=== PATIENT | male | born 1980 | race African-American/Black ===

== ENCOUNTER → 2020-09-27 14:18 | Outpatient (BNVA) | payer OTHER, SELFPAY | PROVIDERS: PCP Nurse Practitioner Primary Care; Referring Provider Family Medicine; Visit Provider Internal Medicine | DX: R07.2 Precordial pain (principal); I10 Essential (primary) hypertension; E66.01 Morbid (severe) obesity due to excess calories | CPT/HCPCS: 93005; 99202 ==

== ENCOUNTER → 2020-10-18 11:00 | Outpatient (REF) | payer OTHER, SELFPAY ==
--- NOTE | 2020-10-18 11:03 | CA_ITS ---
Acquisition Time: 2020-10-18 11:35:14 Total Exercise Time: 00:09:46 Test Indications: cp, sob Medications: SEE CHART Protocol: EARNEST Max HR: 153 BPM 84% of Pred: 182 BPM Max BP: 176/072 mmHG Max Work Load: 11.2 METS Exercise stress test with exercise 9 min 46 sec of Earnest protocol, without anginal symptoms, without arrythmia, with normotensive response to exercise, without EKG changes meeting criteria. Accuracy to assess for ischemia slightly decreased due to acheiving 84% MPHR when goal was 85%. Echo images obtained by tech at rest and immediately post peak exercise. Definity contrast used. Test reviewed with Dr Mahoney. Referred By: Brian Teran Overread By: HEENA DODD
== END ==
LOC: HO.CARD 11:00
PROVIDERS: PCP Family Medicine; Visit Provider Internal Medicine
DX: R07.2 Precordial pain (principal)
CPT/HCPCS: 93350; Q9957

== ENCOUNTER → 2020-11-21 13:41 | Outpatient (REF) | payer OTHER, SELFPAY ==
--- NOTE | 2020-11-21 13:46 | CA_ITS ---
Transthoracic Echocardiogram Patient (Last, First, Middle): Norbert Cerrato, Gender: Male Date of : 1980 Age: 39 Procedure Date: 11/21/2020 Procedure Type: Transthoracic Echocardiogram Location: OP Height: 177.8 cm Weight: 109.77 kg BSA: 2.26 m2 Heart Rate: bpm BP: 124 / 90 mmHg Helicopter Pilot: LEONCIO Referring MD: Brian Teran MD Symptoms: R07.2 - Precordial pain Study Quality: Fair/Contrast ECG Rhythm: Sinus Conclusions: - The left ventricular systolic function is normal. The calculated ejection fraction is 66% by biplane method. - No obvious valvular pathology seen on this study. Findings Procedure Information Contrast agent, definity, is being given per protocol without apparent complications. Left Ventricle Normal left ventricular cavity size. There is normal left ventricular wall thickness. The left ventricular systolic function is normal. The calculated ejection fraction is 66% by biplane method. There is no evidence of regional wall motion abnormalities. Diastolic function is normal for age. Right Ventricle Normal right ventricular cavity size and systolic function. Atria Both atria are normal in size. Aortic Valve There is a normal trileaflet aortic valve. There is no aortic valve stenosis. There is no aortic valve regurgitation. Mitral Valve The mitral valve appears normal. There is no mitral valve regurgitation. There is no mitral valve stenosis. Pulmonic Valve The pulmonic valve was not well visualized. Tricuspid Valve Normal tricuspid valve structure. There is trace tricuspid valve regurgitation. The pulmonary artery systolic pressure is normal. Great Vessels The aortic annulus, sinuses of valsalva, and asc aorta are normal in size. Venous The inferior vena cava is normal in size and collapses greater than 50% with inspiration. Pericardium/Pleural There is no evidence of pericardial effusion. Prior Study Comparison No prior study available for comparison. Recommendations, Care & Conclusions No obvious valvular pathology seen on this study. Measurements 2D Linear Measurements IVSd: 0.83 0.6-0.9/0.6-1.0 cm LVIDd: 5.10 3.9-5.3/4.2-5.9 cm LVIDd Index: 2.26 2.4-3.2/2.2-3.1 cm/m2 LVIDs: 3.33 2.0-3.6 cm LVPWd: 0.84 0.7-1.1 cm Ao Root: 3.40 2.1-3.5 cm LA Diam: 4.30 2.7-3.8/3.0-4.0 cm LAIDs Index: 1.90 1.5-2.3 cm/m2 LV Mass: 183.89 67-162/88-224 g LV Mass Index: 81.37 43-95/49-115 g/m2 LVOT Diam: 2.10 3.0+(-)1.3 cm 2D Systolic Function EF 4C: 64.90 >55% EF 2C: 67.30 >55% EF BiP: 65.80 >55% Mitral Valve MV Pk E: 1.21 MV PK A: 0.64 MV Decel Time: 203.00 E/A: 1.90 E'Lateral: 17.10 E'Medial: 11.70 E/E' Med: 10.30 E/E' Lat: 7.10 PHT: 59.00 MVA PHT: 3.73 Decel Boyle: 5.98 Aortic Valve AoV Pk Rolo: 1.68 AoV Mn Rolo: 1.17 AoV VTI: 0.36 AoV Pk Grad: 11.00 Aov Mn Grad: 6.00 VICKI Cont.VTI: 2.95 LVOT LVOT Pk Rolo: 1.56 LVOT Mn Rolo: 0.96 LVOT VTI: 0.31 LVOT Pk Grad: 10.00 LVOT Mn Grad: 4.00 LVOT Diam: 2.10 LVOT Area: 3.46 Diastolic Function MV Pk E: 1.21 MV Pk A: 0.64 E/A: 1.90 E'Medial: 11.70 E/E' Med: 10.30 E' Laterial: 17.10 E/E' Lat: 7.10 Tricuspid Valve TR Pk Rolo: 1.98 TR Pk Grad: 16.00 RA Press: 3.00 RVSP: 19.00 Great Vessels Aorta Ao Root-2D: 3.40 2.0-3.7 cm Ao Asc: 3.40 2.1-3.4 cm Ao Arch: 3.10 Updated in Other Vendor System with Status of Final Brian Teran MD electronically signed on 11/22/2020 10:51:04 AM with status of Final
== END ==
LOC: HO.CARD 13:41
PROVIDERS: Visit Provider Internal Medicine
DX: R07.2 Precordial pain (principal)
CPT/HCPCS: 93306; Q9957

== ENCOUNTER 2021-06-30 15:16 | Emergency (ER) | payer OTHER, SELFPAY ==
--- NOTE | ~2021-06-30 | CT_ITS ---
EXAMINATION: CT HEAD WITHOUT CONTRAST CLINICAL INFORMATION: Dizziness COMPARISON: None TECHNIQUE: Contiguous axial imaging was performed from the skull base to vertex without intravenous administration of contrast. This CT examination was performed using dose optimization techniques as appropriate, variously including the following: *Automated exposure control *Adjustment of mA and/or kV according to patient size (this includes techniques or standardized protocols for targeted exams where dose is matched to indication/reason for exam; i.e. extremities or head) *Use of iterative reconstruction technique DLP: 789 mGy-cm FINDINGS: There is no evidence of acute intracranial hemorrhage or territorial infarction. No abnormal mass effect or midline shift is seen. Yao to white matter differentiation is well preserved. No extra-axial fluid collections are identified. The ventricles are normal in size. There is no abnormal attenuation within the brain parenchyma. The osseous structures and soft tissues are normal. The mastoid air cells and visualized portions of the paranasal sinuses are well aerated. CT/CT head/brain wo con IMPRESSION: No acute intracranial process seen.
--- NOTE | ~2021-06-30 | XR_ITS ---
EXAMINATION: XR CHEST CLINICAL INFORMATION: Hemoptysis COMPARISON: None TECHNIQUE: 2 views of the chest were obtained. FINDINGS: No significant abnormality is noted involving the heart, lungs, mediastinum, bony thorax or soft tissues. XR/XR chest 2V IMPRESSION: Unremarkable examination.
[2021-06-30 15:35] VITALS: BP 122/69; PULSE 72; RESP 18; TEMP 37; O2SAT 99; BMI 33.0
--- NOTE | 2021-06-30 15:39 | ECG_ITS ---
Test Reason : DIZZINESS Blood Pressure : / mmHG Vent. Rate : 063 BPM Atrial Rate : 063 BPM P-R Int : 170 ms QRS Dur : 096 ms QT Int : 382 ms P-R-T Axes : 004 -11 011 degrees QTc Int : 390 ms Normal sinus rhythm with sinus arrhythmia Normal ECG When compared with ECG of 15-OCT-2017 11:59, No significant change was found Referred By: Generic ED Physician Electronically Signed By:MARCOS GILES MD
[2021-06-30 17:40] LABS: MANUAL DIFF FLAG NO
[2021-06-30 17:41] LABS: Basophils Percent Auto 0.7 % (0-2); Eosinophils Absolute Auto 0.1 X10*3/uL (0.0-0.4); Eosinophils Percent Auto 1.5 % (0-4); Hematocrit 42.2 % (42.0-52.0); Hemoglobin 14.1 g/dl (14.0-18.0); Imm Gran Abs Auto 0.02 X10*3/uL (0.00-0.03); Imm Gran Pct Auto 0.3 % (0.0-0.4); Lymphocytes Absolute Auto 2.4 X10*3/uL (1.2-4.9); Lymphocytes Percent Auto 40.5 % (20-40); Mean Corpuscular HGB Conc 33.4 g/dl (31.0-36.0); Mean Corpuscular Hemoglobin 29.8 pg (27.0-33.0); Mean Corpuscular Volume 89.2 fL (80.0-98.0); Mean Platelet Volume 11.1 fL (9.4-12.4); Monocytes Absolute Auto 0.4 X10*3/uL (0.1-1.2); Monocytes Percent Auto 6.9 % (2-11); Neutrophils Percent Auto 50.1 % (45-73); Platelet Count 241 X10*3/uL (160-400); Red Blood Count 4.73 X10*6/uL (4.60-5.80); Red Cell Distribution Width 13.2 % (11.0-16.0)
[2021-06-30 17:54] LABS: Anion Gap 10 (12-20); Blood Urea Nitrogen 19 mg/dL (9-16); Calcium 9.5 mg/dL (8.4-10.2); Carbon Dioxide 29 mmol/L (22-29); Chloride 102 mmol/L (96-108); Creatinine Clr Calc Pharmacy 101.6; Estimated Glomerular Filt Rate > 60; Glucose Random 95 mg/dL (60-115); Potassium 4.5 mmol/L (3.3-5.1); Sodium 136 mmol/L (135-145)
[2021-06-30 17:57] LABS: COVID-19 Test Negative (Negative)
--- NOTE | 2021-06-30 20:34 | ED.GENADULT ---
HPI - General Adult General Chief complaint: Dizziness Stated complaint: spitting up blood/dizziness/chest pains Time Seen by Provider: 06/30/21 20:34 Source: patient Mode of arrival: ambulatory Limitations: no limitations History of Present Illness complaint: noted bloody nose, had some blood in his spit today x 1, feels lightheaded Onset (ago): hour(s) (several hours ago) Location: head and face (nose and mouth) Severity: mild Relieving factors: none Exacerbating factors: none Associated symptoms: other (feels lightheaded, nasal congestion, has mild bloody nose, he is not coughing or vomiting up blood he just spit out some blood from his mouth all symptoms started outside at bus stop he lives in dorms and they are very dry) Related Data Home Medications Medication Instructions Recorded Confirmed cetirizine 10 mg tablet 10 mg PO DAILY PRN 09/27/20 09/27/20 hydrochlorothiazide 12.5 mg tablet 12.5 mg PO DAILY 09/27/20 09/27/20 hydroxyzine HCl 25 mg tablet 25 mg PO TID PRN 09/27/20 09/27/20 lisinopril 20 mg tablet 20 mg PO DAILY 09/27/20 09/27/20 naltrexone 50 mg tablet 50 mg PO DAILY 09/27/20 09/27/20 sertraline 100 mg tablet 100 mg PO DAILY 09/27/20 09/27/20 trazodone 50 mg tablet 50 mg PO BEDTIME PRN 09/27/20 09/27/20 Previous Rx's Medication Instructions Recorded fluticasone propionate 50 1 spray INTRANASAL DAILY PRN #16 g 06/30/21 mcg/actuation nasal spray,suspension Allergies Allergy/AdvReac Type Severity Reaction Status Date / Time No Known Allergies Allergy Verified 09/27/20 14:32 [No Known Allergies*] Review of Systems Review of Systems: Constitutional : No Fever, No Chills, No Fatigue ENT/Mouth : No sore throat, No Rhinorrhea, pos nasal congestion, pos resolved epistaxis Eyes: No Eye Pain, No Swelling, No Redness Cardiovascular : No Chest Pain, No SOB, No Dyspnea on Exertion Respiratory : pos Cough, No Sputum Gastrointestinal : No Nausea, No Vomiting, No Diarrhea, No abdominal Pain Genitourinary : No Dysuria, No Urinary Frequency, No Hematuria, Musculoskeletal : No joint pain, No Myalgias, No Joint Swelling Skin : No Skin Lesions, No rash Neuro : No Weakness, No Numbness, pos Dizziness, no Headache Psych : No Anxiety/Panic, No Depression Heme/Lymph: No Bruising, No Bleeding,No Lymphadenopathy Endocrine : No Polyuria, No Polydipsia All other systems reviewed and are negative [facility] Past Medical History Attestation statement: The following information was validated with the patient. Medical History Essential hypertension Morbid obesity Surgical History (Updated 09/27/20 @ 14:33 by MERLYN Moore) No pertinent past surgical history Family History Family History (Updated 09/27/20 @ 14:32 by MERLYN Moore) Father Heart disease Diabetes Paternal Aunt Heart disease Mother Family history of cancer HTN (hypertension) Social History Social History (Updated 06/30/21 @ 20:48 by Jo-Ann Campbell DO) Patient Tobacco Use Status: Never used Tobacco Advance Directives: No Physical Exam ED Vital Signs: Vital Signs - 24 hr 06/30/21 15:35 06/30/21 20:55 Temperature 98.6 F 97.6 F Pulse Rate 72 46 L Respiratory Rate 18 16 Blood Pressure 122/69 132/57 L Pulse Oximetry 99 97 BMI result Body Mass Index 33.0 Appearance: Alert. Oriented X3. No acute distress. Eyes: Pupils equal, round and reactive to light. ENT: Pharynx normal. Bilateral boggy turbinates no blood or lesions noted in nose or mouth Neck: Normal inspection. Neck supple. CVS: Normal heart rate and rhythm. Pulses normal. Respiratory: No respiratory distress. Breath sounds normal. Abdomen: Soft and non-tender. Skin: Skin warm and dry. Normal skin color. Normal skin turgor. Extremities: No lower extremity edema. No calf ttp Neuro: Oriented X 3. No motor deficit. No sensory deficit. Course Course Course Narrative: negative head CT stable for DC Medical Decision Making MDM Narrative Medical decision making narrative: 40 yo male with hx of HTN, allergies on zyrtec, lives in the dorms where it is dry he notes today at bus stop he had a brief resolved bloody nose and then had blood in his mouth as well which he spit out - he has not been coughing or vomiting. He takes no blood thinners and has not fallen or hit his head. Suspect epistaxis due to environment in dorms - will start on fluticasone PRN and obtain basic labs. I see no lesions in his mouth. He feels some dizziness as well will obtain imaging to r/o mass sinusitis Lab Data Result diagrams: 06/30/21 17:20 06/30/21 17:20 Labs: Lab Results 06/30/21 06/30/21 06/30/21 Range/Units 17:20 17:20 17:20 WBC 6.0 (4.8-10.8) X10*3/uL RBC 4.73 (4.60-5.80) X10*6/uL Hgb 14.1 (14.0-18.0) g/dl Hct 42.2 (42.0-52.0) % MCV 89.2 (80.0-98.0) fL MCH 29.8 (27.0-33.0) pg MCHC 33.4 (31.0-36.0) g/dl RDW 13.2 (11.0-16.0) % Plt Count 241 (160-400) X10*3/uL MPV 11.1 (9.4-12.4) fL Immature Gran % (Auto) 0.3 (0.0-0.4) % Neut % (Auto) 50.1 (45-73) % Lymph % (Auto) 40.5 H (20-40) % [place] % (Auto) 6.9 (2-11) % Eos % (Auto) 1.5 (0-4) % Baso % (Auto) 0.7 (0-2) % Lymph # (Auto) 2.4 (1.2-4.9) X10*3/uL [place] # (Auto) 0.4 (0.1-1.2) X10*3/uL Eos # (Auto) 0.1 (0.0-0.4) X10*3/uL Baso # (Auto) 0.0 (0.0-0.2) X10*3/uL Abs Immat Gran (auto) 0.02 (0.00-0.03) X10*3/uL Absolute Neuts (auto) 3.0 (2.0-8.3) x10*3/uL Absolute Nucleated RBC 0.000 (0.0-0.012) X10*3/uL Nucleated RBC % (auto) 0.0 (0.0-0.2) /100WBC Sodium 136 (135-145) mmol/L Potassium 4.5 (3.3-5.1) mmol/L Chloride 102 (96-108) mmol/L Carbon Dioxide 29 (22-29) mmol/L Anion Gap 10 L (12-20) BUN 19 H (9-16) mg/dL Creatinine 1.18 (0.5-1.4) mg/dL Estim Creat Clear Calc 101.6 Estimated GFR > 60 Random Glucose 95 (60-115) mg/dL Calcium 9.5 (8.4-10.2) mg/dL COVID-19 (ADRIANNA) Negative (Negative) COVID-19 Clin Com See Note ECG Data Attestation: I personally reviewed and interpreted this ECG as follows: Interpretation: Rate: 63 Rhythm: NSR Leonard: left Normal P waves. Normal SHANEKA. Normal QRS complex. ST T wave : normal no JEREMIAS qTC: normal prior studies: no acute ischemia The study has been interpreted contemporaneously by me. . Discharge Plan Discharge Clinical Impression: Epistaxis, Lightheadedness Patient Disposition: Home, Self-Care Instructions: Nosebleed (ED), Lightheadedness (ED) Additional Instructions: return to ED for any worsening symptoms or concerns please use a humidifier in your room There is no evidence of acute intracranial hemorrhage or territorial infarction. No abnormal mass effect or midline shift is seen. Yao to white matter differentiation is well preserved. No extra-axial fluid collections are identified. The ventricles are normal in size. There is no abnormal attenuation within the brain parenchyma. The osseous structures and soft tissues are normal. The mastoid air cells and visualized portions of the paranasal sinuses are well aerated. ? CT/CT head/brain wo con IMPRESSION: No acute intracranial process seen. Prescriptions: New fluticasone propionate 50 mcg/actuation spray,suspension 1 spray intranasal DAILY PRN (Reason: nasal congestion) Qty: 16 0RF Rx Instructions: administer into each nostril No Action sertraline 100 mg tablet 100 mg PO DAILY 0RF naltrexone 50 mg tablet 50 mg PO DAILY 0RF hydroxyzine HCl 25 mg tablet 25 mg PO TID PRN0RF cetirizine 10 mg tablet 10 mg PO DAILY PRN0RF lisinopril 20 mg tablet 20 mg PO DAILY 0RF hydrochlorothiazide 12.5 mg tablet 12.5 mg PO DAILY 0RF trazodone 50 mg tablet 50 mg PO BEDTIME PRN0RF
[2021-06-30 20:55] VITALS: BP 132/57; PULSE 46; RESP 16; TEMP 36.4; O2SAT 97
== END 2021-06-30 22:12 | disposition home or self-care (01) ==
PROVIDERS: Emergency Provider Emergency Medicine; PCP Internal Medicine Transplant Hepatology
DX: R04.0 Epistaxis (principal); R42 Dizziness and giddiness; I10 Essential (primary) hypertension; Z20.822 Contact with and (suspected) exposure to COVID-19
CPT/HCPCS: 36415; 70450; 71046; 80048; 85025; 87635; 93005; 99284

== ENCOUNTER 2022-05-02 14:46 | Outpatient (REF) | payer OTHER, SELFPAY ==
--- NOTE | ~2022-05-02 | XR_ITS ---
EXAMINATION: EXAMINATION ELBOW, RIGHT EXAMINATION WRIST, RIGHT CLINICAL INFORMATION: Right wrist pain. Right elbow pain. COMPARISON: None TECHNIQUE: 3 views of the right elbow. 4 views of the right wrist. FINDINGS: RIGHT ELBOW: Normal osseous mineralization. No evidence of acute fracture or dislocation. No elbow joint effusion. Small olecranon spur with small calcification at the insertion of the triceps tendon are noted. Tiny spurring from the coronoid process. Otherwise, no evidence of dystrophic soft tissue calcifications. RIGHT WRIST: No evidence of acute fracture or dislocation. No focal erosion. Essentially, no significant abnormality of the bones, joints or soft tissues is demonstrated. XR/XR elbow RT min 3V IMPRESSION: 1. No acute osseous abnormality in the right elbow and right wrist. 2. Small hypertrophic spurs at the olecranon process and coronoid process of the right ulna with findings suggestive of calcific tendinitis at the insertion of the triceps tendon. 3. Unremarkable right wrist radiographs.
--- NOTE | ~2022-05-02 | XR_ITS ---
EXAMINATION: EXAMINATION ELBOW, RIGHT EXAMINATION WRIST, RIGHT CLINICAL INFORMATION: Right wrist pain. Right elbow pain. COMPARISON: None TECHNIQUE: 3 views of the right elbow. 4 views of the right wrist. FINDINGS: RIGHT ELBOW: Normal osseous mineralization. No evidence of acute fracture or dislocation. No elbow joint effusion. Small olecranon spur with small calcification at the insertion of the triceps tendon are noted. Tiny spurring from the coronoid process. Otherwise, no evidence of dystrophic soft tissue calcifications. RIGHT WRIST: No evidence of acute fracture or dislocation. No focal erosion. Essentially, no significant abnormality of the bones, joints or soft tissues is demonstrated. XR/XR wrist RT min 3V IMPRESSION: 1. No acute osseous abnormality in the right elbow and right wrist. 2. Small hypertrophic spurs at the olecranon process and coronoid process of the right ulna with findings suggestive of calcific tendinitis at the insertion of the triceps tendon. 3. Unremarkable right wrist radiographs.
== END 2022-05-02 14:47 | disposition home or self-care (01) ==
LOC: HO.XRAY 14:46
PROVIDERS: PCP Family Medicine; Visit Provider Family Medicine
DX: M25.521 Pain in right elbow (principal); M25.531 Pain in right wrist
CPT/HCPCS: 73080; 73110

== ENCOUNTER → 2022-11-02 08:19 | Outpatient (BNVA) | payer OTHER, SELFPAY | PROVIDERS: PCP Family Medicine; Visit Provider Physician Assistant | DX: M77.8 Other enthesopathies, not elsewhere classified (principal); M65.4 Radial styloid tenosynovitis [de Quervain] | CPT/HCPCS: 99202 ==

== ENCOUNTER 2022-11-21 14:15 | Outpatient (REF) | payer OTHER, SELFPAY ==
[2022-11-23 20:53] LABS: TS Negative Control Passed; TS Panel A 0; TS Panel B 0; TS Positive Control Passed; TSpotTB Negative (Negative)
== END 2022-11-21 14:16 | disposition home or self-care (01) ==
LOC: HO.HHCL 14:15
PROVIDERS: Visit Provider Family Medicine
DX: Z00.00 Encounter for general adult medical examination without abnormal findings (principal)
CPT/HCPCS: 36415; 86481

== ENCOUNTER 2023-09-17 16:52 | Outpatient (REF) | payer MEDICAID, SELFPAY ==
[2023-09-17 19:18] LABS: Alanine Aminotransferase 31 U/L (0-40); Albumin Level 4.3 g/dL (3.5-5.0); Alkaline Phosphatase 107 U/L (39-117); Anion Gap 15 (12-20); Aspartate Amino Transferase 29 U/L (5-37); Bilirubin Total 0.5 mg/dL (0.0-1.0); Blood Urea Nitrogen 13 mg/dL (9-16); Calcium 9.9 mg/dL (8.4-10.2); Carbon Dioxide 26 mmol/L (22-29); Chloride 101 mmol/L (96-108); Cholesterol 200 mg/dL (<200); Estimated Glomerular Filt Rate > 60; Glucose Random 86 mg/dL (60-115); HDL Cholesterol 45 mg/dL (>40); LDL Cholesterol Calculated 138 mg/dL (<100); Potassium 3.5 mmol/L (3.3-5.1); Sodium 138 mmol/L (135-145); Total Protein 8.4 g/dL (6.5-8.0); Triglycerides 88 mg/dL (<150)
[2023-09-17 19:34] LABS: TSH reflex Free T4 1.43 uIU/mL (0.32-4.0)
[2023-09-17 19:44] LABS: Reflex LDLD? No
[2023-09-18 05:22] LABS: Estimated Average Glucose 123 mg/dL; Hemoglobin A1c % 5.9 % (<6.0)
== END 2023-09-17 16:53 | disposition home or self-care (01) ==
LOC: HO.HHCL 16:52
PROVIDERS: Visit Provider Family Medicine
DX: I10 Essential (primary) hypertension (principal); R63.5 Abnormal weight gain
CPT/HCPCS: 36415; 80053; 80061; 83036; 84443

== ENCOUNTER 2024-03-28 18:24 | Observation (INO) | payer OTHER, SELFPAY ==
--- NOTE | ~2024-03-28 | CT_ITS ---
EXAMINATION: Unenhanced CT the head; IV contrast enhanced CT angiography of the head and neck; delayed IV contrast-enhanced CT the head CLINICAL INFORMATION: Intermittent left arm and leg numbness. COMPARISON: CT head 06/30/2021 TECHNIQUE: Routine unenhanced CT the head with multiple coronal and sagittal reformatted images; IV contrast enhanced CT angiography of the head and neck with multiple 3-D reformatted angiographic thick section MIPS images processed on the technologist workstation under concurrent supervision; delayed IV contrast-enhanced CT the head. Vascular stenoses are made with reference to the NASCET criteria less otherwise specified. This CT examination was performed using dose optimization techniques as appropriate, variously including the following: *Automated exposure control *Adjustment of mA and/or kV according to patient size (this includes techniques or standardized protocols for targeted exams where dose is matched to indication/reason for exam; i.e. extremities or head) *Use of iterative reconstruction technique Intravenous Contrast: Omnipaque 350 70 mL DLP: 3132 mGy-cm FINDINGS: Unenhanced IV contrast enhanced CT of the head: No intracranial hemorrhage, tumors or acute infarcts identified. The ventricles and sulci are normal in size and configuration. No focal parenchymal lesions of the brain or abnormal extra-axial fluid collections identified. Normal appearance of the orbits and globes. No significant opacification of the visualized paranasal sinuses, mastoid air cells and middle ear cavities. No abnormal enhancement of the brain parenchyma. CT angiography neck: Images are markedly suboptimal secondary to delayed IV contrast bolus timing. Retropharyngeal course of the internal carotid arteries is noted bilaterally. The carotid bulbs are grossly patent. 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 The right vertebral artery is dominant. Vertebral arteries are suboptimally visualized secondary to suboptimal contrast timing bolus. No gross stenoses occlusions or contour abnormalities of the cervical carotid and vertebral artery systems are noted. CT angiography head: Images are markedly suboptimal secondary to delayed IV contrast timing. No gross large vessel intracranial occlusions identified. No intracranial stenoses or aneurysms noted. The basilar artery is patent. The M1 segments of the middle cerebral arteries are patent. The visualized lung apices are clear. No cervical lymphadenopathy. CT/CT angio head neck IMPRESSION: Unenhanced and IV contrast and CT of the head: *Normal. No intracranial abnormalities identified. CT angiography head and CT angiography neck: *Suboptimal CT angiographic examination secondary to suboptimal and delayed timing of intravenous contrast bolus. *Negative CT angiography of the head. No intracranial large vessel occlusions. *Negative CT angiography of the neck. No occlusions or evidence of arteriopathy. Incidental retropharyngeal course of the left and right internal carotid arteries. 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 Electronically signed by: Freeman Mott MD 03/28/2024 11:35 PM [facility]
--- NOTE | ~2024-03-28 | XR_ITS ---
EXAMINATION: XR CHEST CLINICAL INFORMATION: Shortness of breath COMPARISON: None available. TECHNIQUE: 2 views of the chest were obtained. FINDINGS: No significant abnormality is noted involving the heart, lungs, mediastinum, bony thorax or soft tissues. XR/XR chest 2V IMPRESSION: Unremarkable examination. Electronically signed by: Stew Butler DO 03/28/2024 09:04 PM [facility]
--- NOTE | 2024-03-28 19:05 | ED.GENADULT ---
HPI - General Adult General Chief complaint: General Medical Stated complaint: Congestion/HBP/pain left side body Time Seen by Provider: 03/28/24 21:48 Source: patient Mode of arrival: ambulatory Limitations: no limitations History of Present Illness ED Provider: Dr. Yissel Schmidt HPI narrative: Patient comes to emergency room with multiple complaints. Patient states that he has been having throbbing pain in the temporal region of his head on and off for months, intermittent nosebleeds, palpitations, near syncopal episodes. However, his most concern is that for several years, he has had intermittent numbness tingling on the cervical body, upper and lower extremity. This episode has been present for about 24 hours. Patient denies loss of motor function, only constant paresthesias on the left side of the upper/lower extremity. Patient states that he has never been diagnosed with TIAs or CVAs. Related Data Home Medications ?Medication ?Instructions ?Recorded ?Confirmed cetirizine 10 mg tablet 10 mg PO DAILY PRN 09/27/20 09/27/20 hydrochlorothiazide 12.5 mg tablet 12.5 mg PO DAILY 09/27/20 09/27/20 hydroxyzine HCl 25 mg tablet 25 mg PO TID PRN 09/27/20 09/27/20 lisinopril 20 mg tablet 20 mg PO DAILY 09/27/20 09/27/20 naltrexone 50 mg tablet 50 mg PO DAILY 09/27/20 09/27/20 sertraline 100 mg tablet 100 mg PO DAILY 09/27/20 09/27/20 Previous Rx's ?Medication ?Instructions ?Recorded fluticasone propionate 50 1 spray intranasal DAILY PRN nasal 06/30/21 mcg/actuation nasal congestion #16 grams spray,suspension Allergies Allergy/AdvReac Type Severity Reaction Status Date / Time No Known Allergies Allergy Verified 03/28/24 19:10 [No Known Allergies*] Review of Systems Review of Systems: Constitutional : No Weight loss, No Fever, No Chills, No Night Sweats, No Fatigue, No Malaise ENT/Mouth : No Hearing loss, No Ear Pain, No Nasal Congestion, No Sinus Pain, No Hoarseness, No sore throat, No Rhinorrhea, No Swallowing Difficulty Eyes: No Eye Pain, No Swelling, No Redness, No Foreign Body, No Discharge, No Vision Changes Cardiovascular : No Chest Pain, No SOB, No Dyspnea on Exertion, No Orthopnea, No Edema, complaining of Palpitations Respiratory : No Cough, No Sputum, No Wheezing, No Smoke Exposure, No Dyspnea Gastrointestinal : No Nausea, No Vomiting, No Diarrhea, No Constipation, No abdominal Pain, No Hematochezia, No Melena Genitourinary : no irregular bleeding, No Dysuria, No Urinary Frequency, No Hematuria, No Urinary Incontinence, No Urgency, No Flank Pain, No Urinary Flow Changes, No Hesitancy Musculoskeletal : No joint pain, No Myalgias, No Joint Swelling Skin : No Skin Lesions, No rash Neuro : No Weakness, No Numbness, complaining of paresthesias in left upper and lower extremity, this episode present for almost 30 hours. No Loss of Consciousness, No Dizziness, No Headache Psych : No Anxiety/Panic, No Depression, No SI/HI/AH/VH, No Social Issues, Heme/Lymph: No Bruising, No Bleeding,No Lymphadenopathy Endocrine : No Polyuria, No Polydipsia, No Temperature Intolerance [facility] Past Medical History Medical History Morbid obesity Essential hypertension Surgical History (Updated 09/27/20 @ 14:33 by MERLYN Moore) No pertinent past surgical history Family History Family History (Updated 09/27/20 @ 14:32 by MERLYN Moore) Father Heart disease Diabetes Paternal Aunt Heart disease Mother Family history of cancer HTN (hypertension) Social History Social History (Updated 11/02/22 @ 08:29 by Dania Sandoval) Alcohol intake: former Patient Tobacco Use Status: Former Tobacco user Advance Directives: No Advance Directives Information Provided: No Do you have a plan to hurt others: No Plan Current occupational status: unemployed Current occupation: right hand dominant Physical Exam ED Vital Signs: Vital Signs - 24 hr 03/28/24 19:09 03/28/24 21:37 03/29/24 00:24 Temperature 97.4 F 97.5 F 98.1 F Pulse Rate 66 87 67 Respiratory Rate 18 16 16 Blood Pressure 139/92 H 142/78 H 113/58 L Pulse Oximetry 98 97 96 Oxygen Delivery Method Room Air Room Air Room Air BMI result Body Mass Index 36.7 Const Other: Appearance: Alert. Oriented X3. No acute distress. Eyes: Pupils equal, round and reactive to light. ENT: Pharynx normal. Neck: Normal inspection. Neck supple. No lymph nodes noted. No crepitus CVS: Normal heart rate and rhythm. Pulses normal. Normal S1 and S2 Respiratory: No respiratory distress. Breath sounds normal. No Wheezing. No rales Abdomen: Soft and nontender. No rigidity. No distention. Skin: Skin warm and dry. Normal skin color. Normal skin turgor. Extremities: No lower extremity edema. No Lacerations. No Rash Neuro: Oriented X 3. No motor deficit. No sensory deficit. Moving all extremities. No slurred speech. CN 2 through 12 grossly intact Psych: calm, cooperative, normal affect NIH Stroke Scale Internal: Initial- Upon Arrival Level of Consciousness: Alert Level of Consciousness Questions: Answers both questions correctly Level of Consciousness Commands: Performs both tasks correctly Best Gaze: Normal Visual: No visual loss Facial Palsy: Normal Motor Arm (Right): No drift Motor Arm (Left): No drift Motor Leg (Right): No drift Motor Leg (Left): No drift Limb Ataxia: Absent Sensory: Normal Best Language: No aphasia Dysarthia: Normal Extinction and Inattention: No abnormality Score: 0 Course Course Course Narrative: This is an RME: Additional HPI, ROS, PE not included below will be deferred to primary provider. RME assessment and note performed by: Ashley Norris PA-C This is a [id number], with a hx of HTN and seasonal allergies, who presents to the ER with complaints of left sided headache and shortness of breath. Reports SOB worsens with exertion. He also reports he had an episode of epistaxis. He reports left-sided arm and leg heaviness, he states that this has been ongoing on and off for the last year, this episode starting since last night. No focal deficits on examination. He has an NIH score of 0. Plan: Labs, EKG, chest x-ray, further ER evaluation needed. Medications Administered Discontinued Medications Generic Name Dose Route Start Last Admin Trade Name Freq PRN Reason Stop Dose Admin Iohexol 65 ml 03/28/24 23:20 03/28/24 23:22 Iohexol 350 Mg/Ml 100 Ml Infus..Btl IV 03/28/24 23:21 65 ml ONCE ONE Administration Medical Decision Making Medical Decision Making [facility] Narrative: My interpretation of labs: Normal hematology and chemistry, no acute abnormalities -I discussed with the patient that given his symptoms of intermittent paresthesias in the left upper and lower extremities simultaneously, could be an indication of TIA. CT scan of the head and neck pending. At this time, patient is outside the window of treatment with TNK if this would be of CVA. -they bolus for the CTA of head and neck was not optimal. However, there is no obvious signs of vascular obstruction. Patient is still complaining of numbness and tingling in both left arm and leg. I discussed the patient with Dr. Pringle from the Medicine team, patient being admitted for further testing, MRI in the morning, rule out TIA/CVA Differential Diagnosis Differential Diagnoses: The differential diagnosis associated with the presentation includes (Neuropathy, radiculopathy, TIA, CVA) Admission/Observation Consideration of admission/observation: Escalation of care including admission/observation considered (Given patient's symptoms, observation/admission for further workup was considered.) Lab Data MDM Lab Attestation statement: I reviewed the patient's lab results. 03/28/24 19:28 03/28/24 19:28 Labs: Lab Results 03/28/24 Range/Units 19:28 WBC 7.2 (4.8-10.8) X10*3/uL RBC 4.81 (4.60-5.80) X10*6/uL Hgb 14.4 (14.0-18.0) g/dl Hct 41.6 L (42.0-52.0) % MCV 86.5 (80.0-98.0) fL MCH 29.9 (27.0-33.0) pg MCHC 34.6 (31.0-36.0) g/dl RDW 13.2 (11.0-16.0) % Plt Count 257 (160-400) X10*3/uL MPV 10.7 (9.4-12.4) fL Immature Gran % (Auto) 0.1 (0.0-0.4) % Neut % (Auto) 51.9 (45-73) % Lymph % (Auto) 39.6 (20-40) % Grady % (Auto) 6.1 (2-11) % Eos % (Auto) 1.7 (0-4) % Baso % (Auto) 0.6 (0-2) % Lymph # (Auto) 2.9 (1.2-4.9) X10*3/uL Grady # (Auto) 0.4 (0.1-1.2) X10*3/uL Eos # (Auto) 0.1 (0.0-0.4) X10*3/uL Baso # (Auto) 0.0 (0.0-0.2) X10*3/uL Abs Immat Gran (auto) 0.01 (0.00-0.03) X10*3/uL Absolute Neuts (auto) 3.7 (2.0-8.3) x10*3/uL Absolute Nucleated RBC 0.000 (0.0-0.012) X10*3/uL Nucleated RBC % (auto) 0.0 (0.0-0.2) /100WBC PT 11.8 (10.9-12.4) SEC INR 1.0 (0.9-1.1) Sodium 139 (135-145) mmol/L Potassium 4.0 (3.3-5.1) mmol/L Chloride 104 (96-108) mmol/L Carbon Dioxide 25 (22-29) mmol/L Anion Gap 14 (12-20) BUN 16 (9-16) mg/dL Creatinine 0.94 (0.5-1.4) mg/dL Estim Creat Clear Calc 130.6 Estimated GFR > 60 Random Glucose 93 (60-115) mg/dL Calcium 9.3 D (8.4-10.2) mg/dL Magnesium 2.1 (1.6-2.6) mg/dL Total Bilirubin 0.5 (0.0-1.0) mg/dL Direct Bilirubin 0.2 (0.0-0.5) mg/dL AST 49 H (5-37) U/L ALT 49 H (0-40) U/L Alkaline Phosphatase 90 (39-117) U/L Troponin I High Sens < 2.7 (<3.5-35.0) ng/L B-Natriuretic Peptide 25 (<100) pg/mL Total Protein 8.0 (6.5-8.0) g/dL Albumin 4.3 (3.5-5.0) g/dL Influenza Type A (PCR) NEGATIVE (Negative) Influenza Type B (PCR) NEGATIVE (Negative) RSV RNA Qual (PCR) NEGATIVE (Negative) SARS-CoV-2 RNA (RT-PCR) NEGATIVE (Negative) Independent Interpretation I performed an independent interpretation of an: CT Scan Radiology Impression Discussion of test interpretation with radiology: I have reviewed the radiologist's reading. Radiologist Impression: FINDINGS: Unenhanced IV contrast enhanced CT of the head: No intracranial hemorrhage, tumors or acute infarcts identified. The ventricles and sulci are normal in size and configuration. No focal parenchymal lesions of the brain or abnormal extra-axial fluid collections identified. Normal appearance of the orbits and globes. No significant opacification of the visualized paranasal sinuses, mastoid air cells and middle ear cavities. No abnormal enhancement of the brain parenchyma. CT angiography neck: Images are markedly suboptimal secondary to delayed IV contrast bolus timing. Retropharyngeal course of the internal carotid arteries is noted bilaterally. The carotid bulbs are grossly patent. 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 The right vertebral artery is dominant. Vertebral arteries are suboptimally visualized secondary to suboptimal contrast timing bolus. No gross stenoses occlusions or contour abnormalities of the cervical carotid and vertebral artery systems are noted. CT angiography head: Images are markedly suboptimal secondary to delayed IV contrast timing. No gross large vessel intracranial occlusions identified. No intracranial stenoses or aneurysms noted. The basilar artery is patent. The M1 segments of the middle cerebral arteries are patent. The visualized lung apices are clear. No cervical lymphadenopathy. CT/CT angio head neck IMPRESSION: Unenhanced and IV contrast and CT of the head: *Normal. No intracranial abnormalities identified. CT angiography head and CT angiography neck: *Suboptimal CT angiographic examination secondary to suboptimal and delayed timing of intravenous contrast bolus. *Negative CT angiography of the head. No intracranial large vessel occlusions. *Negative CT angiography of the neck. No occlusions or evidence of arteriopathy. Incidental retropharyngeal course of the left and right internal carotid arteries. 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 Critical Care Time Critical Care Time Critical Care Time: Yes Total Critical Care Time: 60 Attestation: I have personally provided critical care time. Time includes review of lab data, radiology results, discussion with consultants, and monitoring for potential decompensation. Intervention performed as documented. Discharge Plan Discharge Clinical Impression: Paresthesia of left arm and leg Patient Disposition: Admitted as Observation Prescriptions: No Action fluticasone propionate 50 mcg/actuation spray,suspension 1 spray intranasal DAILY PRN (Reason: nasal congestion) Qty: 16 0RF Rx Instructions: administer into each nostril sertraline 100 mg tablet 100 mg PO DAILY naltrexone 50 mg tablet 50 mg PO DAILY hydroxyzine HCl 25 mg tablet 25 mg PO TID PRN cetirizine 10 mg tablet 10 mg PO DAILY PRN lisinopril 20 mg tablet 20 mg PO DAILY hydrochlorothiazide 12.5 mg tablet 12.5 mg PO DAILY Print Language: Bengali
[2024-03-28 19:09] VITALS: BP 139/92; PULSE 66; RESP 18; TEMP 36.3; O2SAT 98; BMI 36.7
--- NOTE | 2024-03-28 19:11 | ECG_ITS ---
Test Reason : htn Blood Pressure : / mmHG Vent. Rate : 068 BPM Atrial Rate : 068 BPM P-R Int : 186 ms QRS Dur : 098 ms QT Int : 394 ms P-R-T Axes : 007 -22 004 degrees QTc Int : 418 ms Normal sinus rhythm Normal ECG When compared with ECG of 30-JUN-2021 17:23, No significant change was found Referred By: Ashley Norris Electronically Signed By:Richard Murillo
[2024-03-28 19:48] LABS: MANUAL DIFF FLAG NO
[2024-03-28 19:49] LABS: Basophils Percent Auto 0.6 % (0-2); Eosinophils Absolute Auto 0.1 X10*3/uL (0.0-0.4); Eosinophils Percent Auto 1.7 % (0-4); Hematocrit 41.6 % (42.0-52.0); Hemoglobin 14.4 g/dl (14.0-18.0); Imm Gran Abs Auto 0.01 X10*3/uL (0.00-0.03); Imm Gran Pct Auto 0.1 % (0.0-0.4); Lymphocytes Absolute Auto 2.9 X10*3/uL (1.2-4.9); Lymphocytes Percent Auto 39.6 % (20-40); Mean Corpuscular HGB Conc 34.6 g/dl (31.0-36.0); Mean Corpuscular Hemoglobin 29.9 pg (27.0-33.0); Mean Corpuscular Volume 86.5 fL (80.0-98.0); Mean Platelet Volume 10.7 fL (9.4-12.4); Monocytes Absolute Auto 0.4 X10*3/uL (0.1-1.2); Monocytes Percent Auto 6.1 % (2-11); Neutrophils Absolute Auto 3.7 x10*3/uL (2.0-8.3); Neutrophils Percent Auto 51.9 % (45-73); Platelet Count 257 X10*3/uL (160-400); Red Blood Count 4.81 X10*6/uL (4.60-5.80); Red Cell Distribution Width 13.2 % (11.0-16.0); White Blood Count 7.2 X10*3/uL (4.8-10.8)
[2024-03-28 19:55] LABS: Prothrombin Time 11.8 SEC (10.9-12.4)
[2024-03-28 20:06] LABS: Alanine Aminotransferase 49 U/L (0-40); Albumin Level 4.3 g/dL (3.5-5.0); Alkaline Phosphatase 90 U/L (39-117); Anion Gap 14 (12-20); Aspartate Amino Transferase 49 U/L (5-37); Bilirubin Direct 0.2 mg/dL (0.0-0.5); Bilirubin Total 0.5 mg/dL (0.0-1.0); Blood Urea Nitrogen 16 mg/dL (9-16); Calcium 9.3 mg/dL (8.4-10.2); Carbon Dioxide 25 mmol/L (22-29); Chloride 104 mmol/L (96-108); Creatinine Clr Calc Pharmacy 130.6; Estimated Glomerular Filt Rate > 60; Glucose Random 93 mg/dL (60-115); Magnesium 2.1 mg/dL (1.6-2.6); Sodium 139 mmol/L (135-145)
[2024-03-28 20:12] LABS: B Type Natriuretic Peptide 25 pg/mL (<100)
[2024-03-28 20:17] LABS: Troponin-I High Sensitivity < 2.7 ng/L (<3.5-35.0)
[2024-03-28 20:30] LABS: Influenza A PCR NEGATIVE (Negative); Influenza B PCR NEGATIVE (Negative); Resp Syncy Virus RNA Qual PCR NEGATIVE (Negative); SARS COV2 PCR INHOUSE NEGATIVE (Negative)
[2024-03-28 21:37] VITALS: BP 142/78; PULSE 87; RESP 16; TEMP 36.4; O2SAT 97
--- NOTE | 2024-03-28 21:38 | MHC.EDTECH ---
This pct just assumed care of Patient ,vitals taken ,no apparent distress noted .
[2024-03-28] MEDS: iohexoL 350 MG/ML 100 ML INFUS..BTL 65 ML IV (23:22)
--- NOTE | 2024-03-28 23:30 | PC.NURSE ---
Pt A&Ox3, denies any pain. No facial droop, equal hand braid folder, Pt ambulating independently with steady gait.
--- NOTE | 2024-03-29 00:23 | PM.IMHP ---
History of Present Illness Date of Service: 03/29/24 Attending physician on admission: Yann Hernandez Chief Complaint: Left-sided weakness/heaviness Pt is a 43-year-old male with a PMH significant for?HTN, seasonal allergies, and mood disorder who presents to the ED with?multiple complaints. Pt reports he awoke this morning with a throbbing and pulsating sensation in the left mormonism area above his ear. Describes it as more pounding rather than painful. Also experienced a ?heaviness? of left arm and left leg. Did not notice any weakness, ataxia, or difficulty grasping objects. Reports occasionally has difficulty swallowing, but no dysarthria, facial droop, or difficulty word finding. No headache or acute vision changes. States has been experiencing these episodes for approximately the last year, though they appear to be becoming more frequent and pronounced. Patient presents today as the throbbing in his head and the heaviness in his left side was more severe than normal. Currently patient is not experiencing these symptoms. Patient also complains of a sequence of symptoms where he suddenly becomes short of breath, dizzy, and feeling like he is going to pass out. Then soon after develops hiccups. Patient also reports occasional nosebleeds. No chest pain/pressure, palpitations. In the ED pt was hypertensive up to 142/78 otherwise vitals WNL and stable. Labs were significant for mildly elevated AST of 49 and ALT of 49, otherwise grossly unremarkable and baseline for patient. No leukocytosis. Stable H& H. No electrolyte abnormalities. Renal function WNL. Troponin negative. BNP negative. Tested negative for COVID, RSV, flu. CXR was unremarkable. CTA of head and neck was suboptimal due to delayed timing of IV contrast bolus, but showed no acute intracranial large vessel occlusion or evidence of occlusions or arteriopathy in the neck. CT of head negative for intracranial abnormalities. EKG demonstrated normal sinus rhythm without evidence of significant ST elevations or depressions. Pt will be admitted to the hospital under observation for for left-sided cranial discomfort and left-sided paresthesia concerning for TIA versus CVA. Review of Systems Review of Systems: Negative except for that which is stated in the HPI. [facility] Medical History Morbid obesity Essential hypertension Family History (Updated 09/27/20 @ 14:32 by MERLYN Moore) Father Heart disease Diabetes Paternal Aunt Heart disease Mother Family history of cancer HTN (hypertension) Surgical History (Updated 09/27/20 @ 14:33 by MERLYN Moore) No pertinent past surgical history Social History (Updated 11/02/22 @ 08:29 by Dania Sandoval) Alcohol intake: former Patient Tobacco Use Status: Former Tobacco user Advance Directives: No Advance Directives Information Provided: No Do you have a plan to hurt others: No Plan Current occupational status: unemployed Current occupation: right hand dominant Meds Allergies Allergy/AdvReac Type Severity Reaction Status Date / Time No Known Allergies Allergy Verified 03/28/24 19:10 [No Known Allergies*] Home Medications ?Medication ?Instructions ?Recorded ?Confirmed ?Last Taken ?Type cetirizine 10 mg tablet 10 mg PO DAILY PRN 09/27/20 09/27/20 Unknown History hydrochlorothiazide 12.5 mg tablet 12.5 mg PO DAILY 09/27/20 09/27/20 Unknown History hydroxyzine HCl 25 mg tablet 25 mg PO TID PRN 09/27/20 09/27/20 Unknown History lisinopril 20 mg tablet 20 mg PO DAILY 09/27/20 09/27/20 Unknown History naltrexone 50 mg tablet 50 mg PO DAILY 09/27/20 09/27/20 Unknown History sertraline 100 mg tablet 100 mg PO DAILY 09/27/20 09/27/20 Unknown History Physical Exam Vital Signs and Narrative: Vital Signs: Last Vital Signs Temp 97.5 F 03/28/24 21:37 Pulse 87 03/28/24 21:37 Resp 16 03/28/24 21:37 BP 142/78 H 03/28/24 21:37 Pulse Ox 97 03/28/24 21:37 O2 Del Method Room Air 03/28/24 21:37 BMI result Body Mass Index 36.7 General: AOx3, no acute distress Resp: CTA bilaterally CVS: S1, S2, RRR GI: +BS, NT, no distention Skin: Warm, dry Neuro: Cranial nerves II-XII grossly intact bilaterally. Motor grossly intact bilaterally. Strength intact and symmetrical of upper and lower extremities bilaterally. Sensation to light touch intact of upper and lower extremities bilaterally. No facial droop. No dysarthria. 0.8 or drift negative. Extremities: No edema Psych: Appropriate affect Results Labs 03/28/24 19:28 03/28/24 19:28 Labs: Laboratory Results - last 24 hr 03/28/24 19:28 MCV 86.5 MCH 29.9 MCHC 34.6 RDW 13.2 Plt Count 257 MPV 10.7 Immature Gran % (Auto) 0.1 Neut % (Auto) 51.9 Lymph % (Auto) 39.6 [place] % (Auto) 6.1 Eos % (Auto) 1.7 Baso % (Auto) 0.6 Lymph # (Auto) 2.9 [place] # (Auto) 0.4 Eos # (Auto) 0.1 Baso # (Auto) 0.0 Abs Immat Gran (auto) 0.01 Absolute Neuts (auto) 3.7 Absolute Nucleated RBC 0.000 Nucleated RBC % (auto) 0.0 PT 11.8 INR 1.0 Anion Gap 14 Estim Creat Clear Calc 130.6 Estimated GFR > 60 Random Glucose 93 Calcium 9.3 D Magnesium 2.1 Total Bilirubin 0.5 Direct Bilirubin 0.2 AST 49 H ALT 49 H Alkaline Phosphatase 90 Troponin I High Sens < 2.7 B-Natriuretic Peptide 25 Total Protein 8.0 Albumin 4.3 Influenza Type A (PCR) NEGATIVE Influenza Type B (PCR) NEGATIVE RSV RNA Qual (PCR) NEGATIVE SARS-CoV-2 RNA (RT-PCR) NEGATIVE Imaging Radiologist's Impressions: Impressions Chest X-Ray 03/28/24 19:30 IMPRESSION: Unremarkable examination. Electronically signed by: Stew Butler DO 03/28/2024 09:04 PM EST RP Head/Neck CTA 03/28/24 22:12 IMPRESSION: Unenhanced and IV contrast and CT of the head: *Normal. No intracranial abnormalities identified. CT angiography head and CT angiography neck: *Suboptimal CT angiographic examination secondary to suboptimal and delayed timing of intravenous contrast bolus. *Negative CT angiography of the head. No intracranial large vessel occlusions. *Negative CT angiography of the neck. No occlusions or evidence of arteriopathy. Incidental retropharyngeal course of the left and right internal carotid arteries. 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 Electronically signed by: Freeman Mott MD 03/28/2024 11:35 PM EST RP Assessment and Plan (1) Paresthesia of left arm and leg: Status: Acute Plan Pt is a 43-year-old male with a PMH significant for?HTN, seasonal allergies, and mood disorder who presents to the ED with?multiple complaints. Pt reports he awoke this morning with a throbbing and pulsating sensation in the left mormonism area above his ear. Describes it as more pounding rather than painful. Also experienced a ?heaviness? of left arm and left leg. Pt will be admitted to the hospital under observation for for left-sided cranial discomfort and left-sided paresthesia concerning for TIA versus CVA. Left-sided paresthesia Patient reports left-sided throbbing in temporal associated with left upper and lower extremity paresthesia Intermittent x1 year, worsening and becoming more frequent Today was most severe episode yet Currently back to baseline, no focal deficits noted upon exam Concerning for TIA versus CVA versus possible complex migraine CT of head negative for acute intracranial abnormality CTA of head/neck suboptimal, but without noted acute process Will get MRI of head/brain Lipid profile PT/OT consult Neurology consult Monitor on telemetry HTN Continue hydrochlorothiazide, lisinopril Mood disorder Continue sertraline Full Code Attending:?Dr. Pringle DVT Prophylaxis: Pt ambulatory, here for observation Patient will be admitted to the hospital under observation for treatment and further evaluation of left-sided paresthesias concerning for TIA versus CVA versus complex migraine. Patient will require cardiac monitoring, additional imaging with MRI, and specialist consultation with Neurology. Quality Stroke Does the patient have a stroke diagnosis?: No VTE Prior VTE?: No VTE Risk Level:: Medical - moderate - high VTE Device Contraindication: Treatment Not Indicated VTE Drug Contraindication: Treatment Not Indicated
[2024-03-29 00:24] VITALS: BP 113/58; PULSE 67; RESP 16; TEMP 36.7; O2SAT 96
--- NOTE | 2024-03-29 01:30 | PC.NURSE ---
Pt passed Nursing Swallow eval. PO fluids given and sandwich per request.
[2024-03-29 01:44] LABS: Cholesterol 253 mg/dL (<200); HDL Cholesterol 59 mg/dL (>40); LDL Cholesterol Calculated 177 mg/dL (<100); Triglycerides 86 mg/dL (<150)
[2024-03-29] MEDS: Aspirin Enteric Coated 81 MG TABLET.DR PO (01:45)
[2024-03-29 03:02] VITALS: BP 125/65; PULSE 69; RESP 14; TEMP 36.7; O2SAT 96
[2024-03-29 04:20] VITALS: BP 111/61; PULSE 66; RESP 20; TEMP 36.4; O2SAT 97
--- NOTE | 2024-03-29 04:23 | MHC.EDTECH ---
0400 rounding done ,vitals taken ,Patient asleep ,Patient at bedside .
[2024-03-29] MEDS: 0.9 % Sodium Chloride Flush 3 ML SYRINGE IVFLUSH (09:33)
--- NOTE | 2024-03-29 09:43 | PHA.MEDREC ---
Pharmacy Consult ? Medication Reconciliation Pharmacy has completed the medication reconciliation. Spoke to pt to confirm meds. Per patient, does not take hydroxyzine or flonase.
--- NOTE | 2024-03-29 10:05 | P.CNNE_ITS ---
History of Present Illness Data of Consult Service Date: 03/29/24 Primary Care Provider: Eneida Alonzo MD [facility] Reason for consult: Left-sided. 43 years old man who came to hospital with left-sided symptoms. He is having this kind of symptoms in episodic fashion for about a year. Typically, it would start with a pulsating feeling in left side of his head or forehead or oriental orthodox area and then in few minutes it would spread to involve his left arm and then left leg. This symptom would last for about 10 minutes and then he had head pressure lasting for many hours. Though he was having these episodes for about a year, this recent episode was little bit more severe any came to emergency room. Review of Systems 2 Review of Systems: No recent cold or flu-like illness or trauma PMFSH Past Medical History Medical History Morbid obesity Essential hypertension Family History Family History (Updated 09/27/20 @ 14:32 by MERLYN Moore) Father Heart disease Diabetes Paternal Aunt Heart disease Mother Family history of cancer HTN (hypertension) Surgical History Surgical History (Updated 09/27/20 @ 14:33 by MERLYN Moore) No pertinent past surgical history Social History Social History (Updated 11/02/22 @ 08:29 by Dania Sandoval) Alcohol intake: former Patient Tobacco Use Status: Former Tobacco user Smoked in Last 30 Days: No Use of substances other than those prescribed or required for medical reasons: No Advance Directives: No Advance Directives Information Provided: No Do you have a plan to hurt others: No Plan Nutrition Risks: No Nutritional Risk Current occupational status: unemployed Current occupation: right hand dominant Meds Allergies Allergy/AdvReac Type Severity Reaction Status Date / Time No Known Allergies Allergy Verified 03/28/24 19:10 [No Known Allergies*] Active Medications: Current Medications Acetaminophen (Acetaminophen 325 Mg Tablet) 650 mg PO Q6H PRN PRN Reason: Pain, Mild (Pain Scale 1-3), fever or headache Benzonatate (Benzonatate 100 Mg Capsule) 100 mg PO TID PRN PRN Reason: Cough Calcium Carbonate (Calcium Carbonate 750 Mg Tab.Chew) 750 mg PO Q4H PRN PRN Reason: Heartburn Magnesium Hydroxide (Milk Of Magnesia 30 Ml Oral.Susp) 30 ml PO DAILY PRN PRN Reason: Constipation Melatonin (Melatonin 3 Mg Tablet) 6 mg PO BEDTIME PRN PRN Reason: Insomnia Ondansetron HCl (Ondansetron Hcl 4 Mg/2 Ml Vial) 4 mg IVPUSH Q8H PRN PRN Reason: Nausea and Vomiting Sodium Chloride (0.9 % Sodium Chloride Flush 3 Ml Syringe) 3 ml IVFLUSH QSHIFT [facility] Last Admin: 03/29/24 09:33 Dose: 3 ml Home Medications ?Medication ?Instructions ?Recorded ?Confirmed ?Last Taken ?Type cetirizine 10 mg tablet 10 mg PO DAILY PRN Allergy Symptoms 09/27/20 03/29/24 Unknown History hydrochlorothiazide 12.5 mg tablet 12.5 mg PO DAILY 09/27/20 03/29/24 03/28/24 History lisinopril 20 mg tablet 20 mg PO DAILY 09/27/20 03/29/24 03/28/24 History sertraline 100 mg tablet 150 mg PO DAILY 03/29/24 03/29/24 03/28/24 History Physical Exam 2 Vital Signs: Vital Signs: Last Vital Signs Temp 97.5 F 03/29/24 04:20 Pulse 66 03/29/24 04:20 Resp 20 03/29/24 04:20 BP 111/61 03/29/24 04:20 Pulse Ox 97 03/29/24 04:20 O2 Del Method Room Air 03/29/24 04:20 BMI result Body Mass Index 36.7 Neuro: Other: He is alert and awake with normal spontaneity of speech fluency comprehension and affect. Face is symmetrical. Visual mandujano are full. There was no pronator drift. Deep tendon reflexes are trace to absent with flexor plantars. Speech is normal. Results Labs 03/28/24 19:28 03/28/24 19:28 Labs: Short CBC 03/28/24 Range/Units 19:28 WBC 7.2 (4.8-10.8) X10*3/uL Hgb 14.4 (14.0-18.0) g/dl Hct 41.6 L (42.0-52.0) % Plt Count 257 (160-400) X10*3/uL BMP 03/28/24 19:28 Sodium 139 Potassium 4.0 Chloride 104 Carbon Dioxide 25 BUN 16 Creatinine 0.94 Calcium 9.3 D Liver Function 03/28/24 Range/Units 19:28 Total Bilirubin 0.5 (0.0-1.0) mg/dL Direct Bilirubin 0.2 (0.0-0.5) mg/dL AST 49 H (5-37) U/L ALT 49 H (0-40) U/L Alkaline Phosphatase 90 (39-117) U/L Albumin 4.3 (3.5-5.0) g/dL CT and CTA of brain did not reveal any significant abnormality. CTA of neck was okay. Assessment and Plan (1) Migraine equivalent syndrome: Status: Acute 43 years old man who is description of symptom is suggestive more of migraine with aura and migraine equivalent syndrome resulting in left-sided symptoms lasting for few minutes followed by head pressure or headache for many hours. He has been having the symptoms were about a year and episodic fashion. He was educated about this concept and was advised to take a medicine to control of the symptoms. Topiramate 25 mg at night is recommended at this time with outpatient follow-up. 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
[2024-03-29 10:36] VITALS: BP 114/42; PULSE 57; RESP 12; TEMP 36.6; O2SAT 98
--- NOTE | 2024-03-29 10:51 | PM.DS ---
DS: Providers Provider Date of Service: 03/29/24 Date of admission: 03/29/24 01:20 Date of discharge: 03/29/24 Primary care physician: Eneida Alonzo MD Consults: 03/29/24 01:23 Consult to Neurology Routine Consulting Provider: 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 Pt reports he awoke this morning with a throbbing and pulsating sensation in the left zoroastrianism area above his ear. Describes it as more pounding rather than painful. Also experienced a ?heaviness? of left arm and left leg. Did not notice any weakness, ataxia, or difficulty grasping objects. Reports occasionally has difficulty swallowing, but no dysarthria, facial droop, or difficulty word finding. No headache or acute vision changes. States has been experiencing these episodes for approximately the last year, though they appear to be becoming more frequent and pronounced. Patient presents today as the throbbing in his head and the heaviness in his left side was more severe than normal. Currently patient is not experiencing these symptoms. Patient also complains of a sequence of symptoms where he suddenly becomes short of breath, dizzy, and feeling like he is going to pass out. Then soon after develops hiccups. Patient also reports occasional nosebleeds. No chest pain/pressure, palpitations. In the ED pt was hypertensive up to 142/78 otherwise vitals WNL and stable. Labs were significant for mildly elevated AST of 49 and ALT of 49, otherwise grossly unremarkable and baseline for patient. No leukocytosis. Stable H& H. No electrolyte abnormalities. Renal function WNL. Troponin negative. BNP negative. Tested negative for COVID, RSV, flu. CXR was unremarkable. CTA of head and neck was suboptimal due to delayed timing of IV contrast bolus, but showed no acute intracranial large vessel occlusion or evidence of occlusions or arteriopathy in the neck. CT of head negative for intracranial abnormalities. EKG demonstrated normal sinus rhythm without evidence of significant ST elevations or depressions. Pt will be admitted to the hospital under observation for for left-sided cranial discomfort and left-sided paresthesia concerning for TIA versus CVA. Hospital course: He was admitted for work up for stroke or TIA, all his symptoms resolved. He was evaluated by Neurologist (Dr. Snow) and thought his symptoms are related to migraine with Aura and was recommended for Topiramate 25 mg at bedtime and outpatient follow up. Time Attestation Discharge Coordination Time (in mins): 30 Quality: Safe Use of Opioids Does Pt have an Active Cancer Diagnosis on the Problem List?: No Quality: Stroke Does the patient have a stroke diagnosis?: No Physical Exam Vital Signs: Vital Signs: Last Vital Signs Temp 97.9 F 03/29/24 10:36 Pulse 57 03/29/24 10:36 Resp 12 03/29/24 10:36 BP 114/42 L 03/29/24 10:36 Pulse Ox 98 03/29/24 10:36 O2 Del Method Room Air 03/29/24 10:36 BMI result Body Mass Index 36.7 General: AO X 3, no acute distress Resp: CTA bilateral CVS: S1,S2,RRR GI: +BS, NT, no distention Skin: No rash Neuro: motor grossly intact Psych: appropriate affect DS: Data Data Completed and Pending Labs on day of discharge: Laboratory Results - last 24 hr 03/28/24 19:28 WBC 7.2 RBC 4.81 Hgb 14.4 Hct 41.6 L MCV 86.5 MCH 29.9 MCHC 34.6 RDW 13.2 Plt Count 257 MPV 10.7 Immature Gran % (Auto) 0.1 Neut % (Auto) 51.9 Lymph % (Auto) 39.6 [place] % (Auto) 6.1 Eos % (Auto) 1.7 Baso % (Auto) 0.6 Lymph # (Auto) 2.9 [place] # (Auto) 0.4 Eos # (Auto) 0.1 Baso # (Auto) 0.0 Abs Immat Gran (auto) 0.01 Absolute Neuts (auto) 3.7 Absolute Nucleated RBC 0.000 Nucleated RBC % (auto) 0.0 PT 11.8 INR 1.0 Sodium 139 Potassium 4.0 Chloride 104 Carbon Dioxide 25 Anion Gap 14 BUN 16 Creatinine 0.94 Estim Creat Clear Calc 130.6 Estimated GFR > 60 Random Glucose 93 Calcium 9.3 D Magnesium 2.1 Total Bilirubin 0.5 Direct Bilirubin 0.2 AST 49 H ALT 49 H Alkaline Phosphatase 90 Troponin I High Sens < 2.7 B-Natriuretic Peptide 25 Total Protein 8.0 Albumin 4.3 Triglycerides 86 Cholesterol 253 H LDL Cholesterol, Calc 177 H HDL Cholesterol 59 Influenza Type A (PCR) NEGATIVE Influenza Type B (PCR) NEGATIVE RSV RNA Qual (PCR) NEGATIVE SARS-CoV-2 RNA (RT-PCR) NEGATIVE Discharge Plan Discharge Anticipated Discharge Date/Time: 03/29/24 10:48 Patient Disposition: Home, Self-Care Discharge Diagnosis: Migranine with aura Referrals: Janina Snow MD [Physician] - 2 Weeks Eneida Alonzo MD [Primary Care Provider] - 1 Week Discharge Medications: New topiramate 25 mg capsule,extended release 24hr 25 mg PO BEDTIME Qty: 30 0RF Continued sertraline 100 mg tablet 150 mg PO DAILY cetirizine 10 mg tablet 10 mg PO DAILY PRN (Reason: Allergy Symptoms) lisinopril 20 mg tablet 20 mg PO DAILY hydrochlorothiazide 12.5 mg tablet 12.5 mg PO DAILY Discharge Orders: Discharge Order (Routine); Ordered 03/29/24 Ordered By: Jed Clemens Diet: Advance to usual diet Activity on Discharge: As tolerated Stand Alone Forms: Patient Portal Discharge page Print Language: [place] Care Plan Goals: recovery from migraine Health Concerns: migraine with aura Plan of Treatment: take topiramate 25 mg at bedtime and follow up with your Doctor in a week follow up with the Neurologist Dr. Snow in his office Assessment: see above
== END 2024-03-29 11:27 | disposition home or self-care (01) ==
LOC: HO.ED 03-29 00:58 → HO.EDOVER 03-29 01:27
PROVIDERS: Physician Assistant Medical; Admitting Provider Student in an Organized Health Care Education/Training Program; Emergency Provider Emergency Medicine; PCP Family Medicine; Visit Provider Internal Medicine
DX: G43.109 Migraine with aura, not intractable, without status migrainosus (principal); R20.2 Paresthesia of skin; R20.0 Anesthesia of skin; R29.700 NIHSS score 0; R06.02 Shortness of breath; R04.0 Epistaxis; I10 Essential (primary) hypertension; F39 Unspecified mood [affective] disorder; Z03.818 Encounter for observation for suspected exposure to other biological agents ruled out; Z79.899 Other long term (current) drug therapy
CPT/HCPCS: 0241U; 70496; 70498; 71046; 80048; 80061; 80076; 83735; 83880; 84484; 85025; 85610; 93005; 99222; 99284; 99285; Q9967

== ENCOUNTER → 2024-03-28 19:11 | Outpatient (BNV) | payer OTHER, SELFPAY | PROVIDERS: Admitting Provider Student in an Organized Health Care Education/Training Program; Emergency Provider Emergency Medicine; PCP Family Medicine; Visit Provider Internal Medicine Cardiovascular Disease | DX: I10 Essential (primary) hypertension (principal) | CPT/HCPCS: 93010 ==

== ENCOUNTER → 2024-03-29 01:20 | Outpatient (BNV) | payer OTHER, SELFPAY | PROVIDERS: Admitting Provider Student in an Organized Health Care Education/Training Program; Emergency Provider Emergency Medicine; PCP Family Medicine; Visit Provider Student in an Organized Health Care Education/Training Program | DX: R20.2 Paresthesia of skin (principal) | CPT/HCPCS: 99499 ==

== ENCOUNTER → 2024-03-29 01:20 | Outpatient (BNV) | payer OTHER, SELFPAY | PROVIDERS: Admitting Provider Student in an Organized Health Care Education/Training Program; Emergency Provider Emergency Medicine; PCP Family Medicine; Visit Provider Psychiatry & Neurology Neurology | DX: G43.109 Migraine with aura, not intractable, without status migrainosus (principal) | CPT/HCPCS: 99222 ==

== ENCOUNTER → 2024-06-12 10:30 | Outpatient (BNV) | payer OTHER, SELFPAY | PROVIDERS: PCP Family Medicine; Visit Provider Radiology Diagnostic Radiology | DX: R13.10 Dysphagia, unspecified (principal) | CPT/HCPCS: 74230 ==

== ENCOUNTER 2024-06-12 11:25 | Outpatient (REF) | payer OTHER, SELFPAY ==
--- NOTE | ~2024-06-12 | FL_ITS ---
EXAMINATION: Modified BARIUM SWALLOW CLINICAL INFORMATION: Oropharyngeal dysphagia COMPARISON: None available. TECHNIQUE: Modified barium swallow was performed in upright lateral view patient standing following oral administration of various consistencies of food coated with barium by the speech therapist. FINDINGS: On oral administration of various consistencies of food coated barium there is normal propagation bolus from the oral cavity, pharynx into upper esophagus without obstruction, narrowing or delay. No laryngeal penetration or aspiration seen. No retention of food in valleculae or piriform sinuses sinuses. FLUOROSCOPY TIME: 1.03 minutes DOSE AREA PRODUCT: 1267 uGy-m2 (microgray-meter squared) FL/FL Modified Barium Swallow IMPRESSION: Unremarkable modified barium swallow exam. Correlate with speech therapy report Electronically signed by: Maximo Peterson MD 06/12/2024 01:42 PM CHRISTEN
--- NOTE | 2024-06-12 14:09 | MHC.SL.IMP ---
Date of Plan of Treatment: 06/12/24 Onset of Symptoms/Illness: 06/12/23 Date Treatment Started: 06/12/24 Admitting Diagnosis: Dysphagia Primary Speech & Language Diagnosis: R13.11 Oral Phase Dysphagia Reason for Today's Visit: 68258 Modified Barium Swallow Study Pre-evaluation Dietary Consistencies: Regular Pre-evaluation Liquid Consistency: Thin Pre-evaluation Medication Administration: Whole with Liquid Medical History: Modified Barium Swallow Study Fluoroscopic Evaluation of Swallowing Function CPT Code 93197 Evaluation Year: 2024 Reason for Study: Difficulty swallowing Referring Physician: Sarkis Tsang MD Evaluating Clinician: Kylee Seay MA, CCC-BURRING WHEEL OPERATOR Study Number: 1 Patient Name: Norbert Cerrato Status: Outpatient, Ambulatory Age: 43 Gender: Male Medical History Medical History Morbid obesity Essential hypertension Current (pre-evaluation) Intake/Diet: Route: PO Diet Grade: Regular Liquid Consistencies: Thin Pre-Study Functional Oral Intake Scale (FOIS): 7- Total oral intake with no restrictions Pain: None reported at time of study SUBJECTIVE: Patient is a 43 year old male referred for a modified barium swallow study by Dr. Tsang from the [facility]. Patient reports onset of dysphagia approximately one year ago. He c/o pain in his chest and throat with swallowing. He also endorses globus sensation at the level of the sternal notch, especially with foods such as bread, rice, and meat. Patient reports persistent need to clear his throat, but denies any changes to his voice. Impressions and Recommendations OBJECTIVE: Time-out: performed at 12:15 Evaluation Start: 12:00; Stop: 12:10 Patient Positioning: Standing Viewing Planes: LATERAL ONLY Contrast: MBSImP? Standardized Protocol using commercially prepared, standardized Barium viscosities, including: Varibar? THIN LIQUID (40% w/v, <15 cps) , Varibar? NECTAR (40% w/v, <150-450 cps) , Varibar? PUDDING (40% w/v, <4451-4823 cps) , 1/2 Shortbread Cookie (1 x1 x.25 ) MBSImP ID: [id number] MBSImP Results: Lip closure for intraoral bolus containment could not be assessed due to logistical reasons not related to physiologic impairment. Tongue control during bolus hold allowed bolus escape posteriorly. Bolus preparation and mastication resulted in timely and efficient chewing and mashing. Bolus transport/lingual motion was with repetitive/disorganized motion of the tongue. Oral residue was a trace, lining oral structures. Initiation of the pharyngeal swallow occurred when the bolus head was in the pyriform sinuses. Soft palate elevation resulted in no bolus between the soft palate and the pharyngeal wall. Laryngeal elevation demonstrated complete superior movement of the thyroid cartilage with complete approximation of the arytenoids to the epiglottic petiole. Anterior hyoid excursion demonstrated complete anterior movement. Epiglottic movement resulted in complete inversion. Laryngeal vestibular closure was complete, as indicated by no air or contrast within the laryngeal vestibule at the height of the swallow. Pharyngeal stripping wave was present and complete. Pharyngeal contraction could not be determined due to logistical reasons not related to physiologic impairment. Pharyngoesophageal segment opening was completely distended for complete duration with no obstruction of bolus flow. Tongue base retraction allowed a trace column of contrast or air between the retracted tongue base and the posterior pharyngeal wall. Pharyngeal residue was not present. There was complete pharyngeal clearance. Esophageal clearance in the upright position could not be assessed due to logistical reasons not related to physiologic impairment. Oral Impairment Score: 8 (absence of score, component 1) Pharyngeal Impairment Score: 0 (absence of score, component 13) Esophageal Impairment Score: --- (absence of score, component 17) Laryngeal Penetration and Aspiration: Neither penetration nor aspiration was observed in today's study with Cookie, Pudding-thick, [place]-thick, Thin. ASSESSMENT: This exam was conducted by the radiologist and the speech pathologist. Patient was standing for lateral view only. He was able to feed himself without difficulty and trialed thin (via individual cup sips and sequential cup sips), nectar thick (via individual cup sips), puree, and regular solid consistencies. Some tongue rocking motion noted. There was premature posterior escape of trace liquid, which pooled in the pyriform sinuses prior to the initiation of the pharyngeal swallow trigger. Mastication was timely and efficient. There was trace residue on the tongue, cleared with secondary swallow. No evidence of nasopharyngeal reflux. Complete laryngeal elevation with complete epiglottic inversion and complete laryngeal vestibular closure. No evidence of penetration or aspiration. Complete vallecular and pyriform clearing. Liquid Intake Recommendation: Thin Liquid Intake Strategies: Unrestricted Dietary Recommendations: Regular Medication Administration: Whole with Liquid Please contact the pharmacy regarding appropriate crushable or liquid drug formulations that are available whenever modified delivery is recommended. Compensatory Strategies Recommended: Sitting Upright (90 deg), Small Bites and Sips, Alternate Liquids/Solids, Rate of Ingestion Change Supervision during eating and or drinking: None Needed Recommendation for Speech Therapy: NA:Typical Evaluation Text Comment: Intake Recommendations: Route: PO Diet Grade: Regular Liquid Consistencies: Thin Post-Study Functional Oral Intake Scale (FOIS): 7- Total oral intake with no restrictions Mild oral phase dysphagia with premature posterior escape, disorganized lingual motion, and delayed pharyngeal swallow trigger. Pharyngeal phase was unremarkable with good airway protection. No evidence of aspiration or penetration. Good oral and pharyngeal clearance. Suggested Referrals: The patient might benefit from a referral to: Gastroenterology Indication for Referral: ?Reflux; patient complaining of globus sensation, MBSS showing complete pharyngeal clearance Otolaryngology Indication for Referral: Chronic throat clearing Therapy Recommendations: Further speech therapy is not warranted at this time. Recommend continue unrestricted diet of REGULAR texture solids and THIN liquids, pills WHOLE in LIQUID. Patient is recommended G.I. consult to further investigate complaints of globus sensation and pain with swallowing. Clinician - Supplemental, Miscellaneous Communication: It is important to note MBSS objective studies are snapshots in time and Patient function might vary with factors such as time of day or concomitant medical conditions. For this reason, the final treatment plan for this patient should rest with their medical care team. Additional recommendations should be considered with the totality of the Patient in mind. Thank for the opportunity to participate in the care of this patient. If you have any questions about the content of this report, please contact the [facility] at [facility]. Education: Education regarding findings from today's study and plans for therapy were provided to Patient only through Verbal Instruction. Understanding was expressed by the Patient only. Filter Press Pumper Clinician/Clinical Fellow: No Supervisory Statement: N/A Speech Language Pathologist: Kylee Seay M.A., CCC-BURRING WHEEL OPERATOR
== END 2024-06-12 11:26 | disposition home or self-care (01) ==
LOC: HO.XRAY 11:25
PROVIDERS: PCP Family Medicine; Visit Provider Family Medicine
DX: R13.12 Dysphagia, oropharyngeal phase (principal)
CPT/HCPCS: 74230; 92611

== ENCOUNTER 2024-11-17 09:29 | Emergency (ER) | payer OTHER, SELFPAY ==
--- NOTE | ~2024-11-17 | XR_ITS ---
EXAMINATION: XR CHEST CLINICAL INFORMATION: cough, fever COMPARISON: March 28, 2024 TECHNIQUE: 2 views of the chest were obtained. FINDINGS: No significant abnormality is noted involving the heart, lungs, mediastinum, bony thorax or soft tissues. XR/XR chest 2V IMPRESSION: No acute disease, no change. Electronically signed by: Nikko Hernández MD 11/17/2024 10:54 AM EDT
[2024-11-17 09:53] VITALS: BP 114/76; PULSE 84; RESP 18; TEMP 37.3; O2SAT 100; BMI 33.7
[2024-11-17 10:17] LABS: MANUAL DIFF FLAG NO
[2024-11-17 10:18] LABS: Hematocrit 40.5 % (42.0-52.0); Hemoglobin 14.1 g/dl (14.0-18.0); Imm Gran Abs Auto 0.01 X10*3/uL (0.00-0.03); Imm Gran Pct Auto 0.2 % (0.0-0.4); Lymphocytes Absolute Auto 0.8 X10*3/uL (1.2-4.9); Mean Corpuscular HGB Conc 34.8 g/dl (31.0-36.0); Mean Corpuscular Hemoglobin 30.1 pg (27.0-33.0); Mean Corpuscular Volume 86.5 fL (80.0-98.0); NRBC Abs Auto 0.000 X10*3/uL (0.0-0.012); NRBC Pct Auto 0.0 /100WBC (0.0-0.2); Platelet Count 216 X10*3/uL (160-400); Red Blood Count 4.68 X10*6/uL (4.60-5.80); White Blood Count 4.6 X10*3/uL (4.8-10.8)
[2024-11-17 10:21] LABS: Appearance Urine Clear; Glucose Urine UA Negative (Negative); PH 6.0 (5.0-9.0); Specific Gravity - Urine 1.020 (1.005-1.025)
[2024-11-17 10:46] LABS: Alanine Aminotransferase 38 U/L (0-40); Albumin Level 4.3 g/dL (3.5-5.0); Anion Gap 10 (12-20); Aspartate Amino Transferase 39 U/L (5-37); Calcium 8.8 mg/dL (8.4-10.2); Carbon Dioxide 26 mmol/L (22-29); Chloride 103 mmol/L (96-108); Potassium 3.8 mmol/L (3.3-5.1); Sodium 135 mmol/L (135-145); Total Protein 7.5 g/dL (6.5-8.0)
[2024-11-17 10:48] LABS: Alkaline Phosphatase 93 U/L (39-117); Blood Urea Nitrogen 13 mg/dL (9-16); Creatinine Clr Calc Pharmacy 93.3; Estimated Glomerular Filt Rate > 60; Magnesium 1.9 mg/dL (1.6-2.6)
[2024-11-17 10:57] LABS: Resp Syncy Virus RNA Qual PCR NEGATIVE (Negative); SARS COV2 PCR INHOUSE NEGATIVE (Negative)
--- NOTE | 2024-11-17 13:02 | ED.GENADULT ---
HPI - General Adult General Chief complaint: Abdominal Pain Stated complaint: fever Time Seen by Provider: 11/17/24 12:29 Source: patient, RN notes reviewed and old records reviewed Mode of arrival: ambulatory Limitations: no limitations History of Present Illness ED Provider: Katlin NOVAK narrative: 43-year-old male past medical history significant for hypertension, obesity presents for evaluation of fever. Patient reports fevers for the last 3 days. He reports bilateral lower back aches and muscle aches. He reports fatigue, a fever as high as 101 at home Your he denies any cough, sore throat, shortness of breath, abdominal pain, nausea vomiting, diarrhea Denies any recent travel He denies the use of IV drugs Denies any sick contacts He works for [employer] and denies excessive time outdoors or in wooded areas Related Data Home Medications ?Medication ?Instructions ?Recorded ?Confirmed cetirizine 10 mg tablet 10 mg PO DAILY PRN Allergy Symptoms 09/27/20 03/29/24 hydrochlorothiazide 12.5 mg tablet 12.5 mg PO DAILY 09/27/20 03/29/24 lisinopril 20 mg tablet 20 mg PO DAILY 09/27/20 03/29/24 sertraline 100 mg tablet 150 mg PO DAILY 03/29/24 03/29/24 Previous Rx's ?Medication ?Instructions ?Recorded topiramate 25 mg capsule,extended 25 mg PO BEDTIME #30 caps 03/29/24 release 24 hr Allergies Allergy/AdvReac Type Severity Reaction Status Date / Time No Known Allergies (No Known Allergy Verified 11/17/24 09:55 Allergies*) Review of Systems Constitutional: Constitutional: Reports body ache(s), Reports chills, Reports excessive sweating, Reports fatigue, Reports fever(s), Reports malaise and Reports weakness Eyes: Eyes: Denies blurry vision and Denies exophthalmos ENT: Denies sore throat Cardiovascular: Cardiovascular: Denies chest pain and Denies dyspnea on exertion Respiratory: Respiratory: Denies cough and Denies dyspnea on exertion Gastrointestinal: Gastrointestinal: Denies abdominal pain, Denies nausea and Denies vomiting Genitourinary: Genitourinary: Denies dysuria, Reports flank pain and Denies penile discharge Musculoskeletal: Musculoskeletal: Denies back pain, Reports myalgias, Denies arthralgias, Denies joint swelling, Denies limited range of motion and Reports stiffness Integumentary/Breasts: Skin/Breast: Denies erythema, Denies rash and Denies wounds Neurologic: Reports weakness Psychiatric: Psychiatric: Denies anxiety Endocrine: Endocrine: Reports excessive sweating and Reports fatigue PMFSH Past Medical History Medical History Morbid obesity Essential hypertension Surgical History (Updated 09/27/20 @ 14:33 by MERLYN Moore) No pertinent past surgical history Family History Family History (Updated 09/27/20 @ 14:32 by MERLYN Moore) Father Heart disease Diabetes Paternal Aunt Heart disease Mother Family history of cancer HTN (hypertension) Social History Social History (Updated 11/02/22 @ 08:29 by Dania Sandoval) Alcohol intake: former Patient Tobacco Use Status: Former Tobacco user Advance Directives: No Advance Directives Information Provided: Yes Do you have a plan to hurt others: No Plan Current occupational status: unemployed Current occupation: right hand dominant Physical Exam ED Vital Signs: Vital Signs - 24 hr 11/17/24 09:53 Temperature 99.2 F Pulse Rate 84 Respiratory Rate 18 Blood Pressure 114/76 Pulse Oximetry 100 Oxygen Delivery Method Room Air BMI result Body Mass Index 33.7 Const General: healthy appearing, comfortable, no acute distress, alert and awake Nutritional Appearance: well nourished Orientation/consciousness: patient oriented x3 HENMT Head: Yes normocephalic and Yes atraumatic Throat: Yes posterior oropharynx normal Eyes Eyelids: Yes eyelids normal Conjunctivae: conjunctivae normal Sclerae: sclerae normal Corneas: corneas normal Pupils: Equal, round and reactive pupils present EOM: EOMs intact bilaterally Neck Neck: Yes full ROM Resp Effort & Inspection: normal respiratory effort, able to speak in complete sentences, no audible wheezes and not labored Auscultation: clear to auscultation bilaterally Cardio Rate: regular rate Rhythm: regular rhythm GI Inspection: No distended Palpation (GI): Soft to palpation, not firm, nontender, no guarding and not rigid Auscultation: normoactive bowel sounds Skin General skin exam: no rashes or lesions noted and elasticity normal Neuro General: patient oriented x3 Cranial nerves: Yes CN's II-XII intact bilaterally, Yes Equal, round and reactive pupils present and Yes Bilaterally intact EOM present Cognition (Neuro): normal cognition Extrem Other: Moving all extremities well without any obvious deformities Medical Decision Making Medical Decision Making [facility] Narrative: 43-year-old male with a history of hypertension and obesity presents for evaluation of fever. His temp in the ER is 99.2 but he reports a T-max at home as high as 101.2. He has very vague symptoms are consistent with a fever including body aches, weakness, fatigue. He denies any respiratory symptoms, GI or symptoms. He has no rashes, no recent tick bites. No headache or neck pain to suggest meningeal cause. In the ER he is currently afebrile, he has a very mild leukopenia to 4.6 which could be related to a viral illness. He was negative for influenza, COVID-19 and RSV. He had a chest x-ray that was negative, urinalysis that was negative. No abdominal pain or tenderness on exam. He has no rashes noted. I will add on blood cultures, mono screen and tick-borne illness testing. The patient will be discharged as he is currently afebrile and well-appearing. I encouraged him to return if his symptoms do not resolve within 3-5 days Differential Diagnosis Differential Diagnoses: The differential diagnosis associated with the presentation includes Fevers Fever on on origin Lyme disease Viral syndrome COVID-19 Influenza Lab Data [facility] Lab Attestation statement: I reviewed the patient's lab results. As above 11/17/24 10:12 11/17/24 10:12 Labs: Lab Results 11/17/24 11/17/24 Range/Units 10:11 10:12 WBC 4.6 L (4.8-10.8) X10*3/uL RBC 4.68 (4.60-5.80) X10*6/uL Hgb 14.1 (14.0-18.0) g/dl Hct 40.5 L (42.0-52.0) % MCV 86.5 (80.0-98.0) fL MCH 30.1 (27.0-33.0) pg MCHC 34.8 (31.0-36.0) g/dl RDW 13.2 (11.0-16.0) % Plt Count 216 (160-400) X10*3/uL MPV 10.3 (9.4-12.4) fL Immature Gran % (Auto) 0.2 (0.0-0.4) % Neut % (Auto) 69.2 (45-73) % Lymph % (Auto) 17.6 L (20-40) % [place] % (Auto) 9.7 (2-11) % Eos % (Auto) 3.1 (0-4) % Baso % (Auto) 0.2 (0-2) % Lymph # (Auto) 0.8 L (1.2-4.9) X10*3/uL [place] # (Auto) 0.4 (0.1-1.2) X10*3/uL Eos # (Auto) 0.1 (0.0-0.4) X10*3/uL Baso # (Auto) 0.0 (0.0-0.2) X10*3/uL Abs Immat Gran (auto) 0.01 (0.00-0.03) X10*3/uL Absolute Neuts (auto) 3.2 (2.0-8.3) x10*3/uL Absolute Nucleated RBC 0.000 (0.0-0.012) X10*3/uL Nucleated RBC % (auto) 0.0 (0.0-0.2) /100WBC Sodium 135 (135-145) mmol/L Potassium 3.8 (3.3-5.1) mmol/L Chloride 103 (96-108) mmol/L Carbon Dioxide 26 (22-29) mmol/L Anion Gap 10 L (12-20) BUN 13 (9-16) mg/dL Creatinine 1.26 (0.5-1.4) mg/dL Estim Creat Clear Calc 93.3 Estimated GFR > 60 Random Glucose 105 (60-115) mg/dL Calcium 8.8 (8.4-10.2) mg/dL Magnesium 1.9 (1.6-2.6) mg/dL Total Bilirubin 0.6 (0.0-1.0) mg/dL Direct Bilirubin 0.2 (0.0-0.5) mg/dL AST 39 H (5-37) U/L ALT 38 (0-40) U/L Alkaline Phosphatase 93 (39-117) U/L Total Creatine Kinase 136 (38-174) U/L Total Protein 7.5 (6.5-8.0) g/dL Albumin 4.3 (3.5-5.0) g/dL Urine Color Yellow Urine Appearance Clear Urine pH 6.0 (5.0-9.0) Ur Specific [place] 1.020 (1.005-1.025) Urine Protein Negative (Neg-Trace) mg/dL Urine Glucose (UA) Negative (Negative) mg/dL Urine Ketones Negative (Negative) mg/dL Urine Blood Negative (Negative) Urine Nitrite Negative (Negative) Ur Leukocyte Esterase Negative (Negative) Influenza Type A (PCR) NEGATIVE (Negative) Influenza Type B (PCR) NEGATIVE (Negative) RSV RNA Qual (PCR) NEGATIVE (Negative) SARS-CoV-2 RNA (RT-PCR) NEGATIVE (Negative) Discharge Plan Discharge Clinical Impression: Fever Patient Disposition: Home, Self-Care Instructions: Fever in Adults (ED) Additional Instructions: All of your testing in the emergency department was reassuring. Your symptoms are most likely related to a virus. I added on blood cultures, tick-borne illnesses including Lyme and a mono spot Take Tylenol every 6 hours as needed for fevers and body aches. Hydrate well We will call you if any of the additional testing results positive. I recommend he return to the ER in 3-5 days if your symptoms have not resolved or if there are worsening Prescriptions: No Action sertraline 100 mg tablet 150 mg PO DAILY topiramate 25 mg capsule,extended release 24hr 25 mg PO BEDTIME Qty: 30 0RF cetirizine 10 mg tablet 10 mg PO DAILY PRN (Reason: Allergy Symptoms) lisinopril 20 mg tablet 20 mg PO DAILY hydrochlorothiazide 12.5 mg tablet 12.5 mg PO DAILY Stand Alone Forms: Work/School Release Print Language: Citizen Of [place]
--- OUTSIDE RECORDS SUMMARY | 2024-11-17 13:25 | XMS_ITS | Encounter Summary ---
Author Organization [employer] Address [address] [place] [address] 7[address] [place] [address] Care Team Providers Care Binder Cutter Hand Name Role Phone Eneida Alonzo MD Primary Care Provider [phone] Reason for Referral * Imaging (Routine) - Closed Specialty Diagnoses / Procedures Referred By Contigor t Referred To Contact Diagnoses Sleep disturbance Witnessed episode of apnea Procedures Polysomnography Eneida Alonzo MD [address] [place] [address] Phone: tel: fax: Sleep Medicine Service [facility] [address], [address] [place] [address] Phone: tel: fax: Referral ID Status Reason Start Date Expiration Date Visits Re quested Visits Authorized [id number] Closed 11/12/2023 11/11/2024 1 1 Encounter Details Date Type Department Care Team (Late st Contact Info) Description 11/12/2023 Orders Only [facility] MEDICINE [address] [place] [address] [phone] Eneida Alonzo MD [address] [place], [place] [phone] Sleep disturbance (Primary Dx); Witnessed episode of apnea Social History Tobacco Use Types Packs/Day Years Used Date Smoking Tobacco: Never Passive Smoke Exposure: Never Smokeless Tobacco: Never Housing Stability Answer Date Recorded What is your housing situation today? I have casper don 09/17/[address] you li ve. Do you have problems with any of the following? None of the above 09/17/2023 Food Insecurity Answer Date Recorded Within the past 12 months, y ou worried that your food would run out before you got money to buy more: Never True 09/17/2023 Within the past 12 months,th e food you bought just didn't last and you didn't have enough money to get more: Never True 11/2023 Transportation Answer Date Recorded In the past 12 months, has l ack of transportation kept you from medical appts, meetings, work or from getting things needed for daily living? No 09/17/2023 Utilities Answer Date Recorded In the past 12 months, has t he electric, gas, oil or water company threatened to shut off services in your home? No 09/17/2023 Depression Answer Date Recorded Patient Health Questionnaire-2 Score 0 09/17/2023 Sex and Gender Information Value Date Recorded Sex Assigned at Male 03/12/2022 10:32 AM EDT Legal Sex Male 10:32 AM EDT Gender Identity Male 03/12/2022 10:32 AM EDT Sexual Orientation Straight 03/12/2022 10 :32 AM EDT documented as of this encounter Plan of Treatment Scheduled Orders Name Type Priority Associated Diagnoses Orde r Schedule Polysomnography Sleep Center Routine Sleep disturbance Witnessed episode of apnea Expected: 11/12/2023 (Approximate), Expires: 11/11/2024 documented as of this encounter Procedures Procedure Name Priority Date/Time Associated Diagnosis Comments HIGH SENSITIVITY TROPONIN I Routine 03/28/2024 7:28 PM EST Sleep disturbance SARS COV2/INFLUENZA A/B AND RSV RNA QL NAAT Routine 03/28/2024 7:28 PM EST Sleep disturbance CBC WITH AUTO DIFFERENTIAL Routine 03/28/2024 7:28 PM EST Sleep disturbance PROTHROMBIN TIME-INR Routine 03/28/2024 7:28 PM EST Sleep disturbance B TYPE NATRIURETIC PEPTIDE (BNP) Routine 03/28/2024 7:28 PM EST Sleep disturbance MAGNESIUM Routine 03/28/2024 7:28 PM EST Sleep disturbance HEPATIC FUNCTION PANEL Routine 03/28/2024 7:28 PM EST Sleep disturbance BASIC METABOLIC PANEL Routine 03/28/2024 7:28 PM EST Sleep disturbance documented in this encounter Results * SARS-CoV-2 RNA, Influenza A/B, and RSV RNA, Ql NAAT (03/28/2024 7:28 PM EST) Pathologist [facility] Influenza A PCR NEGATIVE Negative [facility] Influenza B PCR NEGATIVE Negative [facility] Resp Syncy Virus RNA Qual PCR NEGATIVE Negative [facility] SARS COV2 PCR NEGATIVE Negative [facility] Comment:All test results mus t be correlated with clinical findings.Negative results do not preclude SARS-CoV2, influenza Avirus, influenza B virus and/or RSV infectionand should not be used as the sole basis for treatment orother patient management decisions. Negative results must becombined with clinical observations, patient history, andepidemiological information.This test has not been evaluated for monitoring treatment ofinfection.This test has been authorized by the FDA under an EmergencyUse Authorization (EUA) for use by authorized laboratories.Testing performed on the [employer] GeneXpert utilizingreal-time RT-PCR.All SARS CoV2 and positive influenza A/B results arereported to [facility]. 03/28/2024 7:28 PM EST 03/28/2024 7:46 PM EST us Generic External Data Provider LAB MICROBIOLOGY - GENERAL ORDERABLES Final Result [facility] [address] [place] [address] [phone] * High Sensitivity Troponin I (03/28/2024 7:28 PM EST) Pathologist [facility] TROPONIN I HIGH SENSITIVITY <2.7 <3.5 - 35.0 ng/L [facility] Comment:The Rayo high sens itivity Troponin-I results should beused in conjunction with other diagnostic information suchas ECG, clinical observations and information, and patientsymptoms to aid in the diagnosis of MD. 03/28/2024 7:28 PM EST 03/28/2024 7:46 PM EST Generic External Data Provider LAB BLOOD ORDERAB LES Final Result Performing Organization Address [facility] Co ne Phone Number [facility] [address] [place] [address] [phone] * B Type Natriuretic Peptide (BNP) (03/28/2024 7:28 PM EST) B Type Natriuretic Peptide 25 <100 pg/mL [facility] Comment:For those patients w ho are being treated with Natrecor(nesiritide, recombinant BNP), BNP testing should beperformed at least two hours post treatment in order toensure that only endogenous levels of BNP are detected. 03/28/2024 7:28 PM EST 03/28/2024 7:46 PM EST Generic External Data Provider LAB BLOOD ORDERAB LES Final Result Performing Organization Address [facility] Phone Number [facility] [address] [place] [address] [phone] * Magnesium (03/28/2024 7:28 PM EST) Pathologist [facility] Magnesium 2.1 1.6 - 2.6 mg/dL [facility] 03/28/2024 7:28 PM EST 03/28/2024 7:46 PM EST Generic External Data Provider LAB BLOOD ORDERAB LES Final Result Performing Organization Address [facility] Phone Number [facility] [address] [place] [address] [phone] * Basic Metabolic Panel (03/28/2024 7:28 PM EST) Sodium 139 135 - 145 mmol/L [facility] Potassium 4.0 3.3 - 5.1 mmol/L [facility] Chloride 104 96 - 108 mmol/L [facility] Carbon Dioxide 25 22 - 29 mmol/L [facility] Anion Gap 14 12 - 20 [facility] Urea Nitrogen (BUN) 16 9 - 16 mg/dL [facility] Creatinine, Serum 0.94 0.5 - 1.4 mg/dL [facility] Creatinine Clr Calc Pharmacy 130.6 [facility] Comment:eGFR (calculated fro m the MDRD study equation) and eCrCl(calculated from the Cockcroft-Gault equation) are based ondifferent parameters and may not yield comparable results.If eCrCl result is absurd, please check patient'sheight/weight. Estimated Glomerular Filt Rate >60 [facility] Comment:Chronic Kidney Disea se: Estimated GFR < 60 mL/min/1.96x2Yevpdh Kidney Disease: Estimated GFR < 15 mL/min/1.73m2 Glucose 93 60 - 115 mg/dL [facility] Calcium 9.3 8.4 - 10.2 mg/dL [facility] 03/28/2024 7:28 PM EST 03/28/2024 7:46 PM EST us Generic External Data Provider LAB BLOOD ORDERAB LES Final Result [facility] [address] [place] [address] [phone] * (ABNORMAL) Hepatic Function Panel (03/28/2024 7:28 PM EST) Bilirubin, Total 0.5 0.0 - 1.0 mg/dL [facility] Bilirubin, Direct 0.2 0.0 - 0.5 mg/dL [facility] Aspartate Amino Transferase 49(H) 5 - 37 U/L [facility] Alanine Aminotransferase 49(H) 0 - 40 U/L [facility] Total Protein 8.0 6.5 - 8.0 g/dL [facility] Albumin Level 4.3 3.5 - 5.0 g/dL [facility] Alkaline Phosphatase 90 39 - 117 U/L [facility] 03/28/2024 7:28 PM EST 03/28/2024 7:46 PM EST Generic External Data Provider LAB BLOOD ORDERAB LES Final Result Performing Organization Address [facility] de Phone Number [facility] [address] [place] [address] [phone] * Prothrombin Time-INR (03/28/2024 7:28 PM EST) Prothrombin Time 11.8 10.9 - 12.4 SEC [facility] INTERNATIONAL NORM RATIO 1.0 0.9 - 1.1 [facility] Comment:INTERNATIONAL NORMAL IZED RATIO (INR) REFERENCE RANGES Reference RangeFor patients not on anticoagulant therapy: 0.9 - 1.1INR ranges for oral anticoagulanttherapy:For prevention and treatment of venous thrombosis and pulmonary embolism: 2.0 - 3.0For acute myocardial infarction with aspirin therapy: 2.0 - 3.0For acute myocardial infarction without aspirin therapy: 3.0 - 4.0For patients with mechanical prosthetic heart valves: 2.5 - 3.5 03/28/2024 7:28 PM EST 03/28/2024 7:46 PM EST Generic External Data Provider LAB BLOOD ORDERAB LES Final Result Performing Organization Address [facility] de Phone Number [facility] [address] [place] [phone] * (ABNORMAL) CBC auto differential (03/28/2024 7:28 PM EST) White Blood Count 7.2 4.8 - 10.8 X10*3/uL [facility] Red Blood Count 4.81 4.60 - 5.80 X10*6/uL [facility] Hemoglobin 14.4 14.0 - 18.0 g/dl [facility] Hematocrit 41.6(L) 42.0 - 52.0 % [facility] Mean Corpuscular Volume 86.5 80.0 - 98.0 fL [facility] Mean Corpuscular Hemoglobin 29.9 27.0 - 33.0 pg [facility] Mean Corpuscular HGB Conc 34.6 31.0 - 36.0 g/dl [facility] Red Cell Distribution Width 13.2 11.0 - 16.0 % [facility] Platelet Count 257 160 - 400 X10*3/uL [facility] Mean Platelet Volume 10.7 9.4 - 12.4 fL [facility] Neutrophils Percent Auto 51.9 45 - 73 % [facility] Imm Gran Pct Auto 0.1 0.0 - 0.4 % [facility] Lymphocytes Percent Auto 39.6 20 - 40 % [facility] Monocytes Percent Auto 6.1 2 - 11 % [facility] Eosinophils Percent Auto 1.7 0 - 4 % [facility] Basophils Percent Auto 0.6 0 - 2 % [facility] NRBC Pct Auto 0.0 0.0 - 0.2 /100WBC [facility] Neutrophils Absolute Auto 3.7 2.0 - 8.3 x10*3/uL [facility] Imm Gran Abs Auto 0.01 0.00 - 0.03 X10*3/uL [facility] Lymphocytes Absolute Auto 2.9 1.2 - 4.9 X10*3/uL [facility] Monocytes Absolute Auto 0.4 0.1 - 1.2 X10*3/uL [facility] Eosinophils Absolute Auto 0.1 0.0 - 0.4 X10*3/uL [facility] Basophils Absolute Auto 0.0 0.0 - 0.2 X10*3/uL [facility] NRBC Abs Auto 0.000 0.0 - 0.012 X10*3/uL [facility] 03/28/2024 7:28 PM EST 03/28/2024 7:46 PM EST us Generic External Data Provider LAB BLOOD ORDERAB LES Final Result [facility] [address] [place] [phone] [phone] documented in this encounter Visit Diagnoses Diagnosis Sleep disturbance- Primary Unspecified sleep disturbance Witnessed episode of apnea documented in this encounter Care Teams Binder Cutter Hand Relationship Specialty Start Date End Date Eneida Alonzo MD [address] [place] [phone] PCP - General Family Medicine 12/08/18 documented as of this encounter
[2024-11-17 13:32] VITALS: BP 114/76; PULSE 84; RESP 18; TEMP 37.3; O2SAT 100
[2024-11-18 09:13] LABS: Lyme Abs Screen <0.90 index
[2024-11-18 22:54] LABS: Lyme Disease DNA PCR NOT DETECTED (NOT DETECTED)
[2024-11-19 04:42] LABS: A. Phagocytphilium DNA,RT-PCR NOT DETECTED (NOT DETECTED); Babesia Microti DNA, RT-PCR NOT DETECTED (NOT DETECTED); Borrelia Miyamotoi,DNA RT-PCR NOT DETECTED (NOT DETECTED); E.Chaffeensis DNA RT-PCR NOT DETECTED (NOT DETECTED); Lyme(Borrelia ssp)DNA RT-PCR NOT DETECTED (NOT DETECTED)
== END 2024-11-17 13:33 | disposition home or self-care (01) ==
PROVIDERS: Emergency Medicine; Physician Assistant; Emergency Provider Emergency Medicine Emergency Medical Services; PCP Family Medicine
DX: R50.9 Fever, unspecified (principal); Z03.818 Encounter for observation for suspected exposure to other biological agents ruled out; R05.9 Cough, unspecified
CPT/HCPCS: 71046; 80048; 80076; 81003; 82550; 83735; 85025; 86308; 86617; 86618; 87040; 87468; 87469; 87478; 87484; 87637; 87798; 99282; 99283

== ENCOUNTER → 2024-11-17 09:57 | Outpatient (BNV) | payer OTHER, SELFPAY | PROVIDERS: PCP Family Medicine; Visit Provider Radiology Diagnostic Radiology | DX: R05.9 Cough, unspecified (principal); R50.9 Fever, unspecified | CPT/HCPCS: 71046 ==

== ENCOUNTER → 2024-11-23 15:59 | Outpatient (REF) | payer OTHER, SELFPAY ==
--- OUTSIDE RECORDS SUMMARY | 2024-11-23 16:56 | XMS_ITS | Encounter Summary ---
Author Organization [employer] Address [address] [facility] 7t [place] [address] Care Team Providers Care Auto Repair Shop Manager Name Role Phone Eneida Alonzo MD Primary Care Provider Encounter Details Date Type Department Care Team ([facility] st Contact Info) Description 11/12/2023 Orders Only [facility] MEDICINE [address] [place], [place] [phone] Eneida Alonzo MD [address] [place], [place] [phone] Sleep disturbance (Primary Dx); Witnessed episode of [...] as of this encounter Plan of Treatment Upcoming Encounters Date Type Department Care Team (Late st Contact Info) Description 12/16/2024 1:45 PM EDT Office Visit [facility] [address] [place] [address] Khris Patton, DMD [address] [place] [address] documented as of this encounter Procedures Procedure [...] RNA, Ql NAAT (03/28/2024 7:28 PM EST) Influenza A PCR NEGATIVE Negative [facility] Influenza B PCR NEGATIVE Negative [facility] Resp Syncy Virus RNA Qual PCR NEGATIVE Negative [facility] SARS COV2 PCR NEGATIVE Negative [facility] Comment:All test results mus t be [...] use by authorized laboratories.Testing performed on the [employer] GeneXpert utilizingreal-time RT-PCR.All SARS CoV2 and positive influenza A/B results arereported to [facility]. 03/28/2024 7:28 PM EST 03/28/2024 7:46 PM EST Generic External Data Provider LAB MICROBIOLOGY - GENERAL ORDERABLES Final Result Performing Organization Address [facility] Co de Phone Number [facility] [address] [place] [address] [phone] * High Sensitivity Troponin I (03/28/2024 7:28 PM EST) [facility] TROPONIN I HIGH SENSITIVITY <2.7 <3.5 - 35.0 ng/L [facility] Comment:The Rayo high sens itivity Troponin-I results should beused in conjunction with other diagnostic information suchas ECG, clinical observations and information, and patientsymptoms to aid in the diagnosis of [place]. 03/28/2024 7:28 PM EST 03/28/2024 7:46 PM EST Generic External Data Provider LAB BLOOD ORDERAB LES Final Result Performing Organization Address [facility] Co de Phone Number [facility] [address] [place] [address] [phone] * B Type Natriuretic Peptide (BNP) (03/28/2024 7:28 PM EST) Pathologist [facility] B Type Natriuretic Peptide 25 <100 pg/mL [facility] Comment:For those patients w ho are being treated with Natrecor(nesiritide, recombinant BNP), BNP testing should beperformed at least two hours post treatment in order toensure that only endogenous levels of BNP are detected. 03/28/2024 7:28 PM EST 03/28/2024 7:46 PM EST Generic External Data Provider LAB BLOOD ORDERAB LES Final Result Performing Organization Address [facility]/ZIP Co de Phone Number [facility] [address] [place] [address] [phone] * Magnesium (03/28/2024 7:28 PM EST) [facility] Magnesium 2.1 1.6 - 2.6 mg/dL [facility] 03/28/2024 7:28 PM EST 03/28/2024 7:46 PM EST Grabbed External Data Provider LAB BLOOD ORDERAB LES Final Result Performing Organization Address [facility] Co de Phone Number [facility] [address] [place] [address] [phone] * Basic Metabolic Panel (03/28/2024 7:28 PM EST) [facility] Sodium 139 135 - 145 mmol/L [facility] Potassium 4.0 3.3 - 5.1 mmol/L [facility] Chloride 104 96 - 108 mmol/L [facility] Carbon Dioxide 25 22 - 29 mmol/L [facility] Anion Gap 14 12 - 20 [facility] Urea Nitrogen (BUN) 16 9 - 16 mg/dL [facility] Creatinine, Serum 0.94 0.5 - 1.4 mg/dL [facility] Creatinine Clr Calc Pharmacy 130.6 [facility] Comment:eGFR (calculated fro m the MDRD study equation) and eCrCl(calculated from the Cockcroft-Gault equation) are based ondifferent parameters and may not yield comparable results.If eCrCl result is absurd, please check patient'sheight/weight. Estimated Glomerular Filt Rate >60 [facility] Comment:Chronic Kidney Disea se: Estimated GFR < 60 mL/min/1.84e0Ontijz Kidney Disease: Estimated GFR < 15 mL/min/1.73m2 Glucose 93 60 - 115 mg/dL [facility] Calcium 9.3 8.4 - 10.2 mg/dL [facility] 03/28/2024 7:28 PM EST 03/28/2024 7:46 PM EST Generic External Data Provider LAB BLOOD ORDERAB LES Final Result Performing Organization Address [facility] Co de Phone Number [facility] [address] [place] [address] [phone] * (ABNORMAL) Hepatic Function Panel (03/28/2024 7:28 PM EST) Bilirubin, Total 0.5 0.0 - 1.0 mg/dL [facility] Bilirubin, Direct 0.2 0.0 - 0.5 mg/dL [facility] Aspartate Amino Transferase 49(H) 5 - 37 U/L [facility] Alanine Aminotransferase 49(H) 0 - 40 U/L [facility] Total Protein 8.0 6.5 - 8.0 g/dL [facility] Albumin Level 4.3 3.5 - 5.0 g/dL [facility] Alkaline Phosphatase 90 39 - 117 U/L [facility] 03/28/2024 7:28 PM EST 03/28/2024 7:46 PM EST Generic External Data Provider LAB BLOOD ORDERAB LES Final Result Performing Organization Address [facility] Co de Phone Number [facility] [address] [place] [address] [phone] * Prothrombin Time-INR (03/28/2024 7:28 PM EST) Pathologist [facility] Prothrombin Time 11.8 10.9 - 12.4 SEC [facility] INTERNATIONAL NORM RATIO 1.0 0.9 - 1.1 [facility] Comment:INTERNATIONAL NORMAL IZED RATIO (INR) REFERENCE [...] ORDERAB LES Final Result Performing Organization Address City/State/[facility] Co de Phone Number [facility] [address] [place] [address] [phone] * (ABNORMAL) CBC auto differential (03/28/2024 7:28 PM EST) Pathologist [facility] White Blood Count 7.2 4.8 - 10.8 X10*3/uL [facility] Red Blood Count 4.81 4.60 - 5.80 X10*6/uL [facility] Hemoglobin 14.4 14.0 - 18.0 g/dl [facility] Hematocrit 41.6(L) 42.0 - 52.0 % [facility] Mean Corpuscular Volume 86.5 80.0 - 98.0 fL [facility] Mean Corpuscular Hemoglobin 29.9 27.0 - 33.0 pg [facility] Mean Corpuscular HGB Conc 34.6 31.0 - 36.0 g/dl [facility] Red Cell Distribution Width 13.2 11.0 - 16.0 % [facility] Platelet Count 257 160 - 400 X10*3/uL [facility] Mean Platelet Volume 10.7 9.4 - 12.4 fL [facility] Neutrophils Percent Auto 51.9 45 - 73 % [facility] Imm Gran Pct Auto 0.1 0.0 - 0.4 % [facility] Lymphocytes Percent Auto 39.6 20 - 40 % [facility] Monocytes Percent Auto 6.1 2 - 11 % [facility] Eosinophils Percent Auto 1.7 0 - 4 % [facility] Basophils Percent Auto 0.6 0 - 2 % [facility] NRBC Pct Auto 0.0 0.0 - 0.2 /100WBC [facility] Neutrophils Absolute Auto 3.7 2.0 - 8.3 x10*3/uL [facility] Imm Gran Abs Auto 0.01 0.00 - 0.03 X10*3/uL [facility] Lymphocytes Absolute Auto 2.9 1.2 - 4.9 X10*3/uL [facility] Monocytes Absolute Auto 0.4 0.1 - 1.2 X10*3/uL [facility] Eosinophils Absolute Auto 0.1 0.0 - 0.4 X10*3/uL [facility] Basophils Absolute Auto 0.0 0.0 - 0.2 X10*3/uL [facility] NRBC Abs Auto 0.000 0.0 - 0.012 X10*3/uL [facility] 03/28/2024 7:28 PM EST 03/28/2024 7:46 PM EST us Generic External Data Provider LAB BLOOD ORDERAB LES Final Result [facility] [address] [place] [phone] [phone] documented in this encounter Visit Diagnoses Diagnosis Sleep disturbance- Primary Unspecified sleep disturbance Witnessed episode of apnea documented in this encounter Care Teams Auto Repair Shop Manager Relationship Specialty Start Date End Date Eneida Alonzo MD [address] [place] [phone] PCP - General Family Medicine 12/08/18 documented as of this encounter
== END ==
LOC: HO.SL 15:59
PROVIDERS: PCP Family Medicine; Visit Provider Family Medicine
DX: G47.33 Obstructive sleep apnea (adult) (pediatric) (principal); G47.9 Sleep disorder, unspecified
CPT/HCPCS: 95806

== ENCOUNTER → 2024-11-23 21:00 | Outpatient (BNV) | payer OTHER, SELFPAY | PROVIDERS: PCP Family Medicine; Visit Provider Internal Medicine | DX: G47.33 Obstructive sleep apnea (adult) (pediatric) (principal) | CPT/HCPCS: 95806 ==

== ENCOUNTER 2024-12-08 09:27 | Outpatient (REF) | payer OTHER, SELFPAY ==
[2024-12-08 11:27] LABS: Hemoglobin A1C 156.0578 umol/L; Total Hemoglobin (HGBA1C) 3473.9374 umol/L
[2024-12-08 11:52] LABS: Alanine Aminotransferase 43 U/L (0-40); Albumin Level 4.5 g/dL (3.5-5.0); Alkaline Phosphatase 94 U/L (39-117); Anion Gap 9 (12-20); Aspartate Amino Transferase 48 U/L (5-37); Blood Urea Nitrogen 13 mg/dL (9-16); Calcium 9.4 mg/dL (8.4-10.2); Carbon Dioxide 28 mmol/L (22-29); Chloride 106 mmol/L (96-108); Cholesterol 234 mg/dL (<200); Estimated Glomerular Filt Rate > 60; HDL Cholesterol 48 mg/dL (>40); Potassium 3.7 mmol/L (3.3-5.1); Sodium 139 mmol/L (135-145); Total Protein 7.9 g/dL (6.5-8.0); Triglycerides 93 mg/dL (<150)
[2024-12-08 12:01] LABS: Syphilis Screen Nonreactive (Nonreactive)
[2024-12-08 12:07] LABS: HBsAGNum1 0.31 S/CO (0.00-0.99); HIV Num 1 0.09 S/CO (0.00-0.99); Hepatitis B Surface Antigen Negative (Negative); ~HepC Num1 0.11 S/CO (0.00-0.79); ~Hepatitis C Antibody Nonreactive (Nonreactive)
[2024-12-08 12:14] LABS: Reflex LDLD? No
[2024-12-08 13:30] LABS: CT PCR Urine NOT DETECTED (Not Detect.); NG PCR Urine NOT DETECTED (Not Detect.)
== END 2024-12-08 09:28 | disposition home or self-care (01) ==
LOC: HO.HHCL 09:27
PROVIDERS: PCP Family Medicine; Visit Provider Family Medicine
DX: Z11.3 Encounter for screening for infections with a predominantly sexual mode of transmission (principal); Z13.1 Encounter for screening for diabetes mellitus; Z11.59 Encounter for screening for other viral diseases; Z11.4 Encounter for screening for human immunodeficiency virus [HIV]; Z13.220 Encounter for screening for lipoid disorders; I10 Essential (primary) hypertension; N52.9 Male erectile dysfunction, unspecified
CPT/HCPCS: 36415; 80053; 80061; 83036; 84153; 84403; 84443; 86780; 86803; 87340; 87389; 87491; 87591

== ENCOUNTER 2025-01-22 16:12 | Outpatient (REF) | payer OTHER, SELFPAY ==
--- OUTSIDE RECORDS SUMMARY | 2025-01-22 17:52 | XMS_ITS | Encounter Summary ---
Author Organization [employer] Address [address] [facility] [address] [place] [address] Care Team Providers Care Hat Finisher Name Role Phone Eneida Alonzo MD Primary Care Provider [phone] Reason for Visit * Reason Comments Med Refill Encounter Details Date Type Department Care Team (Late st Contact Info) Description 11/14/2022 Refill [facility] MED[facility] [address] [place] [address] [phone] Eneida Alonzo MD [address] [place] [address] [phone] Primary hypertension Social History Tobacco Use Types Packs/Day Years Used Date Smoking Tobacco: Never Passive Smoke Exposure: Never Smokeless Tobacco: Never Depression Answer Date Recorded Patient Health Questionnaire-2 Score 0 05/21/2022 Sex and Gender Information Value Date Recorded Sex Assigned at Male 03/12/2022 10:32 AM EDT Legal Sex Male 10:32 AM EDT Gender Identity Male 03/12/2022 10:32 AM EDT Sexual Orientation Straight 03/12/2022 10 :32 AM EDT documented as of this encounter Plan of Treatment Upcoming Encounters Date Type Department Care Team (Late st Contact Info) Description 04/06/2025 3:30 PM EST Office Visit [facility] [address] [place] [address] [phone] Eneida Alonzo MD [address] [place] [address] [phone] documented as of this encounter Visit Diagnoses Diagnosis Primary hypertension Unspecified essential hypertension documented in this encounter Care Teams Hat Finisher Relationship Specialty Start Date End Date Eneida Alonzo MD [address] [place] [address] PCP - General Family Medicine 12/08/18 documented as of this encounter
--- OUTSIDE RECORDS SUMMARY | 2025-01-22 17:52 | XMS_ITS | Encounter Summary ---
Author Organization [employer] Address [address] [place] [address] [place] [address] Care Team Providers Care Cook 3 Pastry Name Role Phone Eneida Alonzo MD Primary Care Provider [phone] Reason for Visit * Reason Comments Med Refill Encounter Details Date Type Department Care Team (Late st Contact Info) Description 08/13/2022 Refill [facility] [address] [place] [phone] Eneida Alonzo MD [address] [place] [phone] Social History Tobacco Use Types Packs/Day Years Used Date Smoking Tobacco: Never Assessed Depression Answer Date Recorded Patient Health Questionnaire-2 Score 0 05/21/2022 Sex and Gender Information Value Date Recorded Sex Assigned at Male 03/12/2022 10:32 AM EDT Legal Sex Male 10:32 AM EDT Gender Identity Male 03/12/2022 10:32 AM EDT Sexual Orientation Straight 03/12/2022 10 :32 AM EDT documented as of this encounter Plan of Treatment Upcoming Encounters Date Type Department Care Team (Late Contact Info) Description 04/06/2025 3:30 PM EST Office Visit [facility] [address] [place] [address] [phone] Eneida Alonzo MD [address] [place] [phone] documented as of this encounter Visit Diagnoses Not on filedocumented in this encounter Care Teams Cook 3 Pastry Relationship Specialty Start Date End Date Eneida Alonzo MD [address] [place] [address] PCP - General Family Medicine 12/08/18 documented as of this encounter
--- OUTSIDE RECORDS SUMMARY | 2025-01-22 17:52 | XMS_ITS | Encounter Summary ---
Author Organization [employer] Address [address] [facility] 7t [place] [address] Care Team Providers Care Signalling And Communications Engineer Name Role Phone Eneida Alonzo MD Primary Care Provider [phone] Reason for Visit * Reason Onset Date Comments Med Refill 10/30/2024 Encounter Details Date Type Department Care Team ([facility] st Contact Info) Description 10/30/2024 Refill [facility] [address] [place], [place] [phone] Sarkis Tsang MD [address] [place], [place] [phone] Nonintractable headache, unspecified chronicity pattern, unspecified headache type Social History Tobacco Use Types Packs/Day Years Used Date Smoking Tobacco: Never Passive Smoke Exposure: Never Smokeless Tobacco: Never Housing Stability Answer Date Recorded What is your housing situation today? I have caspered don 09/17/[address] you [...] Description 04/06/2025 3:30 PM EST Office Visit [facility] [address] [place], [place] [phone] Eneida Alonzo MD [address] [place] [address] documented as of this encounter Visit Diagnoses Diagnosis Nonintractable headache, unspecified chronicity pattern, unspecified headache type documented in this encounter Care Teams Signalling And Communications Engineer Relationship Specialty Start Date End Date Eneida Alonzo MD [address] [place] [phone] PCP - General Family Medicine 12/08/18 documented as of this encounter
--- OUTSIDE RECORDS SUMMARY | 2025-01-22 17:52 | XMS_ITS | Encounter Summary ---
Author Organization [employer] Address [address] [facility] 7t [place] [address] Care Team Providers Care Information And Data Architect Analyst Name Role Phone Eneida Alonzo MD Primary Care Provider [phone] Encounter Details Date Type Department Care Team ([facility] st Contact Info) Description 11/12/2023 Orders Only [facility] [address] [place], [place] [phone] Eneida Alonzo MD [address] [place], [place] [phone] Sleep disturbance (Primary Dx); Witnessed episode of [...] Description 04/06/2025 3:30 PM EST Office Visit [facility] [address] [place] [address] Eneida Alonzo MD [address] [place] [address] documented as of this encounter Procedures Procedure [...] PM EST) Influenza A PCR NEGATIVE Negative [facility] Influenza B PCR NEGATIVE Negative [facility] Resp Syncy Virus RNA Qual PCR NEGATIVE Negative [facility] SARS COV2 PCR NEGATIVE Negative [facility] Comment:All test results mus t be [...] use by authorized laboratories.Testing performed on the [employer] GeneXpert utilizingreal-time RT-PCR.All SARS CoV2 and positive influenza A/B results arereported to [facility]. 03/28/2024 7:28 PM EST 03/28/2024 7:46 PM EST Generic External Data Provider LAB MICROBIOLOGY - GENERAL ORDERABLES Final Result Performing Organization Address [facility] Co de Phone Number [facility] [address] [place] [phone] * High Sensitivity Troponin I (03/28/2024 7:28 PM EST) [facility] [place] TROPONIN I HIGH SENSITIVITY <2.7 <3.5 - 35.0 ng/L [facility] Comment:The Rayo high sens itivity Troponin-I results should beused in conjunction with other diagnostic information suchas ECG, clinical observations and information, and patientsymptoms to aid in the diagnosis of MS. 03/28/2024 7:28 PM EST 03/28/2024 7:46 PM EST Generic External Data Provider LAB BLOOD ORDERAB LES Final Result Performing Organization Address [facility] Co de Phone Number [facility] [address] [place] [phone] * B Type Natriuretic Peptide (BNP) (03/28/2024 7:28 PM EST) Pathologist [facility] B Type Natriuretic Peptide 25 <100 pg/mL [facility] Comment:For those patients w ho are being treated with Natrecor(nesiritide, recombinant BNP), BNP testing should beperformed at least two hours post treatment in order toensure that only endogenous levels of BNP are detected. 03/28/2024 7:28 PM EST 03/28/2024 7:46 PM EST Generic External Data Provider LAB BLOOD ORDERAB LES Final Result Performing Organization Address [facility]/ZIP Co de Phone Number [facility] [address] [place] [phone] * Magnesium (03/28/2024 7:28 PM EST) [facility] Magnesium 2.1 1.6 - 2.6 mg/dL [facility] 03/28/2024 7:28 PM EST 03/28/2024 7:46 PM EST Generic External Data Provider LAB BLOOD ORDERAB LES Final Result Performing Organization Address City/[facility]/ZIP Co de Phone Number [facility] [address] [place] [phone] * Basic Metabolic Panel (03/28/2024 7:28 PM EST) [facility] Sodium 139 135 - 145 mmol/L [facility] Potassium 4.0 3.3 - 5.1 mmol/L [facility] Chloride 104 96 - 108 mmol/L [facility] Carbon Dioxide 25 22 - 29 mmol/L [facility] Anion Gap 14 12 - 20 [facility] Urea Nitrogen (BUN) 16 9 - 16 mg/dL [facility] Creatinine, Serum 0.94 0.5 - 1.4 mg/dL [facility] Creatinine Clr Calc Pharmacy 130.6 [facility] Comment:eGFR (calculated fro m the MDRD study equation) and eCrCl(calculated from the Cockcroft-Gault equation) are based ondifferent parameters and may not yield comparable results.If eCrCl result is absurd, please check patient'sheight/weight. Estimated Glomerular Filt Rate >60 [facility] Comment:Chronic Kidney Disea se: Estimated GFR < 60 mL/min/1.90o1Jhtfol Kidney Disease: Estimated GFR < 15 mL/min/1.73m2 Glucose 93 60 - 115 mg/dL [facility] Calcium 9.3 8.4 - 10.2 mg/dL [facility] 03/28/2024 7:28 PM EST 03/28/2024 7:46 PM EST Generic External Data Provider LAB BLOOD ORDERAB LES Final Result Performing Organization Address [facility] Co de Phone Number [facility] [address] [place] [phone] * (ABNORMAL) Hepatic Function Panel (03/28/2024 7:28 PM EST) Bilirubin, Total 0.5 0.0 - 1.0 mg/dL [facility] Bilirubin, Direct 0.2 0.0 - 0.5 mg/dL [facility] Aspartate Amino Transferase 49(H) 5 - 37 U/L [facility] Alanine Aminotransferase 49(H) 0 - 40 U/L [facility] Total Protein 8.0 6.5 - 8.0 g/dL [facility] Albumin Level 4.3 3.5 - 5.0 g/dL [facility] Alkaline Phosphatase 90 39 - 117 U/L [facility] 03/28/2024 7:28 PM EST 03/28/2024 7:46 PM EST Generic External Data Provider LAB BLOOD ORDERAB LES Final Result Performing Organization Address [facility] Co de Phone Number [facility] [address] [place] [phone] * Prothrombin Time-INR (03/28/2024 7:28 PM EST) Pathologist [facility] Prothrombin Time 11.8 10.9 - 12.4 SEC [facility] INTERNATIONAL NORM RATIO 1.0 0.9 - 1.1 [facility] Comment:INTERNATIONAL NORMAL IZED RATIO (INR) [...] ORDERAB LES Final Result Performing Organization Address City/State/[facility] de Phone Number [facility] [address] [place] [phone] * (ABNORMAL) CBC auto differential (03/28/2024 7:28 PM EST) Pathologist [facility] White Blood Count 7.2 4.8 - 10.8 X10*3/uL [facility] Red Blood Count 4.81 4.60 - 5.80 X10*6/uL [facility] Hemoglobin 14.4 14.0 - 18.0 g/dl [facility] Hematocrit 41.6(L) 42.0 - 52.0 % [facility] Mean Corpuscular Volume 86.5 80.0 - 98.0 fL [facility] Mean Corpuscular Hemoglobin 29.9 27.0 - 33.0 pg [facility] Mean Corpuscular HGB Conc 34.6 31.0 - 36.0 g/dl [facility] Red Cell Distribution Width 13.2 11.0 - 16.0 % [facility] Platelet Count 257 160 - 400 X10*3/uL [facility] Mean Platelet Volume 10.7 9.4 - 12.4 fL [facility] Neutrophils Percent Auto 51.9 45 - 73 % [facility] Imm Gran Pct Auto 0.1 0.0 - 0.4 % [facility] Lymphocytes Percent Auto 39.6 20 - 40 % [facility] Monocytes Percent Auto 6.1 2 - 11 % [facility] Eosinophils Percent Auto 1.7 0 - 4 % [facility] Basophils Percent Auto 0.6 0 - 2 % [facility] NRBC Pct Auto 0.0 0.0 - 0.2 /100WBC [facility] Neutrophils Absolute Auto 3.7 2.0 - 8.3 x10*3/uL [facility] Imm Gran Abs Auto 0.01 0.00 - 0.03 X10*3/uL [facility] Lymphocytes Absolute Auto 2.9 1.2 - 4.9 X10*3/uL [facility] Monocytes Absolute Auto 0.4 0.1 - 1.2 X10*3/uL [facility] Eosinophils Absolute Auto 0.1 0.0 - 0.4 X10*3/uL [facility] Basophils Absolute Auto 0.0 0.0 - 0.2 X10*3/uL [facility] NRBC Abs Auto 0.000 0.0 - 0.012 X10*3/uL [facility] 03/28/2024 7:28 PM EST 03/28/2024 7:46 PM EST us Generic External Data Provider LAB BLOOD ORDERAB LES Final Result [facility] [address] [place] [phone] documented in this encounter Visit Diagnoses Diagnosis Sleep disturbance- Primary Unspecified sleep disturbance Witnessed episode of apnea documented in this encounter Care Teams Information And Data Architect Analyst Relationship Specialty Start Date End Date Eneida Alonzo MD [address] [place] [phone] PCP - General Family Medicine 12/08/18 documented as of this encounter
--- OUTSIDE RECORDS SUMMARY | 2025-01-22 17:52 | XMS_ITS | Encounter Summary ---
Author Organization [employer] Address [address] [facility] 7 [place] [address] Care Team Providers Care Staff Forester Name Role Phone Eneida Alonzo MD Primary Care Provider [phone] Reason for Visit * Reason Onset Date Comments Durable Medical Equipment 01/20/2025 DME Re quest: Auto CPAP Encounter Details Date Type Department Care Team ([facility] st Contact Info) Description 01/20/2025 Telephone [facility] [address] [place], [place] [phone] Eneida Alonzo MD [address] [place], [place] [phone] Durable Medical Equipment (DME Request: Auto CPAP) Social History Tobacco Use Types Packs/Day Years Used Date Smoking Tobacco: Never Passive Smoke Exposure: Never Smokeless Tobacco: Never Depression Answer Date Recorded Patient Health Questionnaire-9 Score 0 01/05/2025 Patient Health Questionnaire-9 Score 0 01/05/2025 Last PHQ-9: Questionnaire Data Not on file 0 01/05/2025 Housing Stability Answer Date Recorded What is your housing situation today? I have casper don 01/05/[address] you li ve. Do you have problems with any of the following? None of the above 01/05/2025 Food Insecurity Answer Date Recorded Within the past 12 months, y ou worried that your food would run out before you got money to buy more: Never True 01/05/2025 Within the past 12 months,th e food you bought just didn't last and you didn't have enough money to get more: Never True Transportation Answer Date Recorded In the past 12 months, has l ack of transportation kept you from medical appts, meetings, work or from getting things needed for daily living? No 01/05/2025 Utilities Answer Date Recorded In the past 12 months, has t he electric, gas, oil or water company threatened to shut off services in your home? No 01/05/2025 Depression Answer Date Recorded Patient Health Questionnaire-2 Score 0 01/05/2025 Internet Access Answer Date Recorded Internet Access Q1 Yes 01/05/2025 Internet Access Q2 Not on file 01/05/2025 Sex and Gender Information Value Date Recorded Sex Assigned at Male 03/12/2022 10:32 AM EDT Legal Sex Male 10:32 AM EDT Gender Identity Male 03/12/2022 10:32 AM EDT Sexual Orientation Straight 03/12/2022 10 :32 AM EDT documented as of this encounter Miscellaneous Notes * Telephone Encounter - Carolee Sandoval - 01/20/2025 2:42 PM EDT DME for CPAP was generated and sent to provider via [employer] for signature. * Telephone Encounter - Carolee Sandoval - 01/20/2025 2:41 PM EDT ----- Message from Eneida Alonzo MD sent at 01/15/2025 6:46 PM EDT ----- Please write a script for AutoPAP. [place] [facility] [place] which recommends CPAP therapy with AutoPAP mode and pressure setting of 6-20 cm. Thank you. documented in this encounter Plan of Treatment Upcoming Encounters Date Type Department Care Team (Late st Contact Info) Description 04/06/2025 3:30 PM EST Office Visit [facility] [address] [place] [address] Eneida Alonzo MD [address] [place] [address] documented as of this encounter Visit Diagnoses Not on filedocumented in this encounter Additional Health Concerns Assessment Noted Time PHQ-9 Depression Total Score: 0 01/06/20 25 3:55 PM EDT documented as of this encounter Care Teams Staff Forester Relationship Specialty Start Date End Date Eneida Alonzo MD [address] [place] [address] PCP - General Family Medicine 12/08/18 documented as of this encounter
--- OUTSIDE RECORDS SUMMARY | 2025-01-22 17:52 | XMS_ITS | Encounter Summary ---
Author Organization [employer] Address [address] [facility] 7t [place] [address] Care Team Providers Care Front Office Supervisor Name Role Phone Eneida Alonzo MD Primary Care Provider [phone] Encounter Details Date Type Department Care Team ([facility] st Contact Info) Description 12/07/2024 Orders Only [facility] MED[facility] [address] [place], [place] [phone] Eneida Alonzo MD [address] [place], [place] [phone] Primary hypertension (Primary Dx); Erectile dysfunction, unspecified erectile dysfunction type; Lower urinary tract symptoms; Screening for lipid disorders; Screening for diabetes mellitus; Routine screening for STI (sexually transmitted infection) Social History Tobacco Use Types Packs/Day Years [...] Description 04/06/2025 3:30 PM EST Office Visit [facility] [address] [place] [address] [phone] Eneida Alonzo MD [address] [place], [place] [phone] Scheduled Orders Name Type Priority Associated Diagnoses Orde r Schedule Albumin, Random Urine W/Creatinine Lab Routine Primary hypertension Expected: 12/07/2024 (Approximate), Expires: 12/07/2025 documented as of this encounter Procedures Procedure Name Priority Date/Time Associated Diagnosis Comments CHLAMYDIA/TRICHOMONAS /NEISSERIA GONORRHOEAE, PCR, URINE Routine 2024 9:41 AM EDT Routine screening for STI (sexually transmitted infection) SYPHILIS SCREEN Routine 2024 9:41 AM EDT Routine screening for STI (sexually transmitted infection) PSA, SCREEN Routine 2024 9:41 AM EDT Erectile dysfunction, unspecified erectile dysfunction type TSH W/REFLEX TO FT4 Routine 2024 9 :41 AM EDT Primary hypertension LIPID PANEL WITH REFLEX TO DIRECT LDL Routine 2024 9:41 AM EDT Screening for lipid disorders HEPATITIS C AB W/REFL TO HCV RNA, QN, PCR Routine 2024 9:41 AM EDT Routine screening for STI (sexually transmitted infection) HEPATITIS B SURFACE ANTIGEN, EIA Routine 2024 9:41 AM EDT Routine screening for STI (sexually transmitted infection) HIV 1/2 ANTIGEN/ANTIBODY, FOURTH GENERATION W/RFL Routine 2024 9:41 AM EDT Routine screening for STI (sexually transmitted infection) TESTOSTERONE, TOTAL, MALES (ADULT), IA Routine 2024 9:41 AM EDT Erectile dysfunction, unspecified erectile dysfunction type HEMOGLOBIN A1C Routine 2024 9:41 AM EDT Screening for diabetes mellitus COMPREHENSIVE METABOLIC PANEL Routine 2024 9:41 AM EDT Primary hypertension documented in this encounter Results * Syphilis Screen (2024 9:41 AM EDT) Syphilis Screen Nonreactive Nonreactive [facility] Blood Venous blood specimen / Unknown 2024 9:41 AM EDT 2024 11:17 AM EDT us Eneida Alonzo MD LAB BLOOD ORDERABLES Final Resul t [facility] [address] [place] [phone] * HIV-1/2 Antigen and Antibodies, Fourth Generation, with Reflexes (2024 9:41 AM EDT) HIV AB/AG Nonreactive Nonreactive [facility] Comment:HIV-1 p24 Ag and/or HIV-1/HIV-2 Ab not detected.A test result that is nonreactive does not exclude thepossibility of exposure to or infection with HIV-1 and/orHIV-2. Nonreactive results in this assay for individualswith prior exposure to HIV-1 and/or HIV-2 may be due toantigen and antibody levels that are below the limit ofdetection of this assay.The [employer] HIV Ag/Ab Combo assay result andsupplemental assay results should be interpreted inconjunction with the patient's clinical presentation,history and other laboratory results. If the results areinconsistent with clinical evidence, additional testing issuggested to confirm the result. Blood Venous blood specimen / Unknown 2024 9:41 AM EDT 2024 11:17 AM EDT us Eneida Alonzo MD LAB BLOOD ORDERABLES Final Resul t Performing Organization Address [facility] Co de Phone Number [facility] [address] [place] [phone] * Hepatitis C Antibody with Reflex to HCV, RNA, Quantitative, Real-Time PCR (2024 9:41 AM EDT) Hepatitis C Antibody Nonreactive Nonreactive [facility] Comment:Antibodies to HCV no t detected; does not exclude early acuteHCV infection. Blood Venous blood specimen / Unknown 2024 9:41 AM EDT 2024 11:17 AM EDT us Eneida Alonzo MD LAB BLOOD ORDERABLES Final Resul t Performing Organization Address [facility] Co de Phone Number [facility] [address] [place] [phone] * Hepatitis B surface antigen, EIA (2024 9:41 AM EDT) Hepatitis B Surface Ag Negative Negative [facility] Blood Venous blood specimen / Unknown 2024 9:41 AM EDT 2024 11:17 AM EDT us Eneida Alonzo MD LAB BLOOD ORDERABLES Final Resul t Performing Organization Address [facility] Co de Phone Number [facility] [address] [place] [phone] * Chlamydia/N. Gonorrhoeae, PCR, Urine (2024 9:41 AM EDT) CT PCR, Urine NOT DETECTED Not Detect. [facility] Comment:A not detected test result does not exclude the possibilityof infection because test results can be affected byimproper specimen collection, concurrent antibiotic therapy,or the number of organisms in the specimen which may bebelow the sensitivity of the test. As with many diagnostictests, results from the Xpert CT/NG assay should beinterpreted in conjunction with other laboratory andclinical data available to the clinician.The Xpert CT/NG assay should not be used for the evaluationof suspected sexual abuse or for other medico-legalindications. Additional testing is recommended in anycircumstance when false positive or false negative resultscould lead to adverse medical, social or psychologicalconsequences. NG PCR, Urine NOT DETECTED Not Detect. [facility] Comment:A not detected test result does not exclude the possibilityof infection because test results can be affected byimproper specimen collection, concurrent antibiotic therapy,or the number of organisms in the specimen which may bebelow the sensitivity of the test. As with many diagnostictests, results from the Xpert CT/NG assay should beinterpreted in conjunction with other laboratory andclinical data available to the clinician.The Xpert CT/NG assay should not be used for the evaluationof suspected sexual abuse or for other medico-legalindications. Additional testing is recommended in anycircumstance when false positive or false negative resultscould lead to adverse medical, social or psychologicalconsequences. Urine (Urine, Random) 2024 9:41 AM EDT 2024 11:18 AM EDT us Eneida Alonzo MD LAB URINE ORDERABLES Final Resul t [facility] [address] [facility] [place] [phone] * Testosterone, Total, males (Adult), IA (2024 9:41 AM EDT) Testosterone, Total 676 250 - 1100 ng/dL [facility] Comment:For additional infor sue, please refer tohttp://education.[employer]faq/AnvfxWxuqjfljoguoEONMEEBBF603(This link is being provided for informational/educational purposes only.)This test was developed and its analytical performancecharacteristics have been determined by [employer] [place], [place]. It hasnot been cleared or approved by the U.S. Food and DrugAdministration. This assay has been validated pursuantto the CLIA regulations and is used for clinicalpurposes.THIS TEST WAS PERFORMED AT:[employer] [place] [id number] ADAMES MD,PHD Blood Venous blood specimen / Unknown 2024 9:41 AM EDT 2024 11:06 AM EDT Eneida Alonzo MD LAB BLOOD ORDERABLES Final Resul t Performing Organization Address City/[facility]/ZIP Co de Phone Number [facility] [address] [place] [address] [phone] * PSA, Screen (2024 9:41 AM EDT) Pathologist [facility] PSA, Total 2.87 <0.05 - 4.0 ng/mL [facility] Comment:PSA methodology: Abb ct Bailon i ChemiluminescentMicroparticle Immunoassay (CMIA) Blood Venous blood specimen / Unknown 2024 9:41 AM EDT 2024 11:17 AM EDT Eneida Alonzo MD LAB BLOOD ORDERABLES Final Resul t Performing Organization Address City/[facility]/ZIP Co de Phone Number [facility] [address] [place] [address] [phone] * (ABNORMAL) Lipid Panel with Reflex to Direct LDL (2024 9:41 AM EDT) Triglycerides 93 <150 mg/dL [facility] Comment:Desirable Triglyceri de: less than 150 mg/dLBorderline High Triglyceride 150-199 mg/dLHigh Triglyceride: 200-499 mg/dLVery High Triglyceride: greater than or equal to 5OO mg/dL Cholesterol 234(H) <200 mg/dL [facility] Comment:Desirable Cholestero l: less than 200 mg/dLBorderline High Cholesterol: 200-239 mg/dLHigh Cholesterol: greater than 239 mg/dL LDL Cholesterol Calculated 168(H) <100 mg/dL [facility] Comment:Desirable LDL: less than 100 mg/dLNear Optimal/Above Optimal LDL: 110- 129 mg/dLBorderline High LDL: 130-159 mg/dLHigh LDL: 160-189 mg/dLVery High LDL: greater than or equal to 190 mg/dL HDL Cholesterol 48 >40 mg/dL [facility] Comment:Desirable HDL: great er than 40 mg/dL Note: This HDL assay may give artificially low results in patients with liver disease. Blood 2024 9:41 AM EDT 2024 11:17 AM EDT us Eneida Alonzo MD LAB BLOOD ORDERABLES Final Resul t [facility] [address] [place], [place] [phone] * (ABNORMAL) Comprehensive Metabolic Panel (2024 9:41 AM EDT) Sodium 139 135 - 145 mmol/L [facility] Potassium 3.7 3.3 - 5.1 mmol/L [facility] Chloride 106 96 - 108 mmol/L [facility] Carbon Dioxide 28 22 - 29 mmol/L [facility] Anion Gap 9(L) 12 - 20 [facility] Urea Nitrogen (BUN) 13 9 - 16 mg/dL [facility] Creatinine, Serum 1.09 0.5 - 1.4 mg/dL [facility] Estimated Glomerular Filt Rate >60 [facility] Comment:Chronic Kidney Disea se: Estimated GFR < 60 mL/min/1.66k3Pecxyj Kidney Disease: Estimated GFR < 15 mL/min/1.73m2 Glucose 107 60 - 115 mg/dL [facility] Calcium 9.4 8.4 - 10.2 mg/dL [facility] Bilirubin, Total 0.5 0.0 - 1.0 mg/dL [facility] Aspartate Amino Transferase 48(H) 5 - 37 U/L [facility] Alanine Aminotransferase 43(H) 0 - 40 U/L [facility] Total Protein 7.9 6.5 - 8.0 g/dL [facility] Albumin Level 4.5 3.5 - 5.0 g/dL [facility] Alkaline Phosphatase 94 39 - 117 U/L [facility] Blood Venous blood specimen / Unknown 2024 9:41 AM EDT 2024 11:17 AM EDT us Eneida Alonzo MD LAB BLOOD ORDERABLES Final Resul t [facility] [address] [place] [address] [phone] * (ABNORMAL) Hemoglobin A1c (2024 9:41 AM EDT) Hemoglobin A1c 6.3(H) <6.0 % [facility] Comment:Hemoglobin A1C Refer ence Range Adults: 4.8 - 6.0 % Non diabetic: < 6.0 % Goal: < 7.0 %Additional Action Suggested: > 8.0 %Note: Hemoglobin A1c results are invalid for patients with abnormal amounts of HbF. Blood transfusions may impact the HbA1c concentration in the patient sample. Estimated Average Glucose 134 mg/dL [facility] Comment:eAG = Estimated ave rage glucose which is %A1C expressed asaverage glucose, using the formula of the D9O-ZnszmpxQnnsjey Glucose study (ADAG), Diabetes Care, Vol.31,#8,2007 Blood Venous blood specimen / Unknown 2024 9:41 AM EDT 2024 11:06 AM EDT us Eneida Alonzo MD LAB BLOOD ORDERABLES Final Resul t Performing Organization Address City/[facility] Co de Phone Number [facility] [address] [place] [phone] * TSH with Reflex to Free T4 (2024 9:41 AM EDT) TSH reflex Free T4 1.33 0.32 - 4.0 uIU/mL [facility] Blood 2024 9:41 AM EDT 2024 11:17 AM EDT us Eneida Alonzo MD LAB BLOOD ORDERABLES Final Resul t Performing Organization Address [facility] Co de Phone Number [facility] [address] [place] [address] [phone] documented in this encounter Visit Diagnoses Diagnosis Primary hypertension- Primary Unspecified essential hypertension Erectile dysfunction, unspecified erectile dysfunction type Lower urinary tract symptoms Other symptoms involving urinary system Screening for lipid disorders Screening for diabetes mellitus Routine screening for STI (sexually transmitted infection) Screening examination for venereal disease documented in this encounter Care Teams Front Office Supervisor Relationship Specialty Start Date End Date Eneida Alonzo MD [address] [place] [phone] PCP - General Family Medicine 12/08/18 documented as of this encounter
--- OUTSIDE RECORDS SUMMARY | 2025-01-22 17:52 | XMS_ITS | Encounter Summary ---
Author Organization [employer] Address [address] [facility] [address] [place] [address] Care Team Providers Care Milk Hauler Name Role Phone Eneida Alonzo MD Primary Care Provider Reason for Visit * Reason Onset Date Comments medication did not go through 12/17/2024 Encounter Details Date Type Department Care Team ([facility] st Contact Info) Description 12/17/2024 Telephone [facility] ADULT DENTAL [address] [place], [place] [phone] Shai Sol, [place] [address] [place] [address] medication did not go through Social History Tobacco Use Types Packs/Day Years [...] encounter Miscellaneous Notes * Telephone Encounter - Salma Wang - 12/17/2024 10:42 AM EDT Patient called in stating that medication did not make it to the pharmacy . I contacted [facility] as it is in the system that it was sent, however [facility] is confirming they did not receive the script. They are able to take a verbal if you can contact them or resend. Please reach out to pharmacy for patient o be able to continuous pickling line pickler script Sent to clinical support E Prescribing and frontload driver documented in this encounter Plan of Treatment Upcoming Encounters Date Type Department Care Team (Late st Contact Info) Description 04/06/2025 3:30 PM EST Office Visit [facility] MEDICINE [address] [place] [phone] Eneida Alonzo MD [address] [place] [phone] documented as of this encounter Visit Diagnoses Not on filedocumented in this encounter Care Teams Milk Hauler Relationship Specialty Start Date End Date Eneida Alonzo MD [address] [place] [phone] PCP - General Family Medicine 12/08/18 documented as of this encounter
--- OUTSIDE RECORDS SUMMARY | 2025-01-22 17:52 | XMS_ITS | Clinical Summary ---
Author Organization [employer] Address [address] [facility] [address] [place] [address] Care Team Providers Care Miner Assistant Name Role Phone Eneida Alonzo MD Primary Care Provider [phone] Allergies No known active allergies Medications hydrOXYzine HCl (Atarax) 25 MG tablet TAKE ONE (1) TABLET BY MOUTH DAILY NEEDED FOR ANXIETY 04/22/20 22 Active sertraline (Zoloft) 100 MG tablet Take 100 mg by mouth in the morning. 04/24/20 22 Active COVID-19 At Home Antigen Test (QuickVue At-Home Covid-19 Test) kitIndications: Fever, unspecified fever cause Use as directed 2 kit 3 05/21/19 23 Active cetirizine (ZyrTEC) 10 MG tablet Take 1 tablet (10 mg) by mouth Once daily. 90 tablet 3 09/17/19 24 Active rizatriptan (Maxalt) 10 MG tablet Take 1 tablet (10 mg) by mouth 1 (one) time if needed for migraine. May repeat in 2 hours if unresolved. Do not exceed 30 mg in 24 hours. 9 tablet 06/09/19 25 Active lisinopril 20 MG tabletIndicatio ns:Primary hypertension TAKE 1 TABLET BY MOUTH EVERY DAY 90 tablet 1 07/28/19 25 Active hydroCHLOROthia zide 12.5 MG tabletIndicatio ns:Primary hypertension TAKE 1 TABLET BY MOUTH EVERY DAY 90 tablet 1 09/11/19 25 Active topiramate (Topamax) 25 MG tabletIndicatio ns:Nonintractab le headache, unspecified chronicity pattern, unspecified headache type TAKE 1 TABLET BY MOUTH EVERYDAY AT BEDTIME 90 tablet 10/31/19 25 Active ibuprofen 600 MG tablet Take 1 tablet (600 mg) by mouth every 6 (six) hours if needed for mild pain for up to 20 doses. 20 tablet 12/17/19 25 Active tadalafil (Cialis) 20 MG tablet Take 1 tablet as a single dose 30 minutes prior to anticipated sexual activity; do not take more than once per day. Maximum 15 tabs per month. 15 tablet 3 01/06/20 25 Active amoxicillin (Amoxil) 500 MG capsule Take 1 capsule (500 mg) by mouth every 8 (eight) hours for 7 days. 21 capsule 12/17/19 25 2024 tadalafil (Cialis) 10 MG tablet 10 mg as a single dose 30 minutes prior to anticipated sexual activity; do not take more than once per day. Maximum 10 tabs per month. 10 tablet 3 12/18/19 25 2024 Discontinued(R eorder (will not trigger notification to Pharmacy)) tadalafil (Cialis) 10 MG tablet 10 mg as a single dose 30 minutes prior to anticipated sexual activity; do not take more than once per day. Maximum 10 tabs per month. 10 tablet 3 01/06/20 25 2024 Discontinued(R eorder (will not trigger notification to Pharmacy)) Active Problems Problem Noted Date Diagnosed Date CARLOS (obstructive sleep apnea) 01/15/2025 Assessment & Plan (01/15/2025 6:51 PM EDT): - Sleep study on 11/23/2024: Severe CARLOS with AHI 43. Mild nocturnal hypoxemia with average oxygen saturation 94% and O2 sats below 88% for 12 minutes. - Recommended to start CPAP therapy with AutoPAP mode and pressure setting of 6 to 20 cm H2O, using the appropriate interface. - Will write a prescription for AutoPap. Erectile dysfunction 01/15/2025 Assessment & Plan (01/15/2025 6:53 PM EDT): - Total testosterone level 676; PSA 2.87 - tadalafil 10 mg daily is ineffective; will increase to 20 mg - will refer to urologist Transaminitis 01/15/2025 Assessment & Plan (01/15/2025 6:55 PM EDT): - likely MASLD - FIB 4 index 1.23 - will order US / elastography - continue working on lifestyle modification Prediabetes 01/15/2025 Assessment & Plan (01/15/2025 6:58 PM EDT): - A1C 6.3% in November 2024 - continue working on lifestyle modifications Precordial chest pain 10/06/2024 Paresthesia of left arm and leg 10/06/2024 Migraine aura occurring with and without headach e 10/06/2024 Migraine equivalent syndrome 10/06/2024 De Quervain's disease (radial styloid tenosynovi tis) 10/06/2024 Tendinitis of right triceps 10/06/2024 Migraine 06/09/2024 Assessment & Plan (01/15/2025 6:49 PM EDT): - presented to [facility] ED in Mar 2024, severe left sided SULLIVAN and paresthesia, requiring hospitalization. - head CT normal - evaluated by neurologist. Dx migraine with aura. Rx topiramate. Assessment & Plan (06/09/2024 5:28 AM EST): - presented to [facility] in Mar 2024, severe left sided SULLIVAN and paresthesia, requiring hospitalization. - head CT normal - evaluated by neurologist. Dx migraine with aura. Rx topiramate. - Chronic low back pain 09/17/2023 Assessment & Plan (09/17/2023 4:53 PM EDT): - patient is interested in chiropractic treatment, will refer once his new insurance becomes active, patient was advised to try home exercise program Radial styloid tenosynovitis (de quervain) 05/25 Assessment & Plan (09/26/2022 5:21 PM EDT): - probable dx - a forearm-based thumb spica splint with the interphalangeal joint free Assessment & Plan (05/25/2022 12:06 PM EST): - probable dx - a forearm-based thumb spica splint with the interphalangeal joint free Right wrist pain 05/25/2022 Assessment & Plan (09/26/2022 5:20 PM EDT): - likely De Quervain tenosynovitis, unlikely CTS or [facility]MC osteoarthritis - prescribe a forearm-based thumb spica splint with the interphalangeal joint free - he is hesitant to take NSAIDs - activity modification - referred to orthopedic hand specialist Assessment & Plan (05/25/2022 12:06 PM EST): - likely De Quervain tenosynovitis, unlikely CTS or CMC osteoarthritis - prescribe a forearm-based thumb spica splint with the interphalangeal joint free - he is hesitant to take NSAIDs - activity modification - refer to orthopedic hand specialist Right elbow pain 05/25/2022 Allergic rhinitis 05/25/2022 Assessment & Plan (09/17/2023 4:53 PM EDT): - restart cetirizine, take daily or more frequently during allergy season - if his current symptoms do not improve or worsen, call to assess antibiotic treatment needs Assessment & Plan (09/26/2022 5:24 PM EDT): - restart cetirizine, take daily or more frequently during allergy season - if his current symptoms do not improve or worsen, call to assess antibiotic treatment needs Assessment & Plan (05/25/2022 12:17 PM EST): - continue cetirizine prn History of alcohol use 10/02/2018 Overview (05/25/2022): - Stopped in Jun 2014 - long-term remission - continue naltrexone Obesity 03/04/2018 Assessment & Plan (01/15/2025 6:49 PM EDT): - continue working on lifestyle modification Assessment & Plan (06/11/2024 10:48 PM EST): - continue working on lifestyle modification Assessment & Plan (09/26/2022 5:22 PM EDT): - continue working on lifestyle modification Mixed anxiety and depressive disorder 06/03/2017 Assessment & Plan (01/15/2025 6:49 PM EDT): - continue sertraline Assessment & Plan (06/11/2024 10:49 PM EST): - continue sertraline Assessment & Plan (09/26/2022 5:23 PM EDT): - continue sertraline Assessment & Plan (05/25/2022 12:15 PM EST): - continue sertraline Posttraumatic stress disorder 06/03/2017 Assessment & Plan (06/11/2024 10:48 PM EST): -[facility] -Hx psychiatric hospitalization -receiving CBT. -continue current medication. Assessment & Plan (09/26/2022 5:23 PM EDT): -[facility] -Hx psychiatric hospitalization -receiving CBT. -continue current medication. Hypertension 09/13/2015 Assessment & Plan (01/15/2025 6:48 PM EDT): >>ASSESSMENT AND PLAN FOR PRIMARY HYPERTENSION WRITTEN ON 05/25/2022 12:17 PM BY ENEIDA ALONZO MD -Goal BP < 140/90 per JNC-8 and < 130/80 per ACC/AHA guideline (Treatment threshold >= 140/90 ) - DBP elevated today - continue Lisinopril 20mg daily. - continue HCTZ 12.5mg daily. - continue working on lifestyle modifications. - s/p stress test and echo in 2020 which were normal - check BP at home - consider evaluation for CARLOS - Follow up in 3-6 mo, sooner if any problem arises Assessment & Plan (01/15/2025 6:48 PM EDT): >>ASSESSMENT AND PLAN FOR PRIMARY HYPERTENSION WRITTEN ON 09/26/2022 5:20 PM BY ENEIDA ALONZO MD -Goal BP < 140/90 per JNC-8 and < 130/80 per ACC/AHA guideline (Treatment threshold >= 140/90 ) - DBP elevated today - continue Lisinopril 20mg daily. - continue HCTZ 12.5mg daily. - continue working on lifestyle modifications. - s/p stress test and echo in 2020 which were normal - check BP at home - consider evaluation for CARLOS - Follow up in 3-6 mo, sooner if any problem arises Assessment & Plan (01/15/2025 6:48 PM EDT): >>ASSESSMENT AND PLAN FOR PRIMARY HYPERTENSION WRITTEN ON 09/17/2023 4:52 PM BY SARAH STRICKLAND -Goal BP < 140/90 per JNC-8 and < 130/80 per ACC/AHA guideline (Treatment threshold >= 140/90 ) - DBP elevated today - continue Lisinopril 20mg daily. - continue HCTZ 12.5mg daily. - continue working on lifestyle modifications. - s/p stress test and echo in 2020 which were normal - check BP at home - consider evaluation for CARLOS - Follow up in 3-6 mo, sooner if any problem arises Assessment & Plan (01/15/2025 6:48 PM EDT): >>ASSESSMENT AND PLAN FOR PRIMARY HYPERTENSION WRITTEN ON 06/11/2024 10:48 PM BY CECE SANFORD -Goal BP < 140/90 per JNC-8 and < 130/80 per ACC/AHA guideline (Treatment threshold >= 140/90 ) - DBP elevated today - continue Lisinopril 20mg daily. - continue HCTZ 12.5mg daily. - continue working on lifestyle modifications. - s/p stress test and echo in 2020 which were normal - check BP at home - consider evaluation for CARLOS - Follow up in 3-6 mo, sooner if any problem arises Assessment & Plan (01/15/2025 6:48 PM EDT): -Goal BP < 130/80 per ACC/AHA guideline (Treatment threshold >= 140/90 ) - DBP elevated today - continue Lisinopril 20mg daily. - continue HCTZ 12.5mg daily. - continue working on lifestyle modifications. - s/p stress test and echo in 2020 which were normal - check BP at home - consider evaluation for CARLOS - Follow up in 3-6 mo, sooner if any problem arises Alcohol use disorder, in sustained remission Assessment & Plan (09/26/2022 5:25 PM EDT): - continue naltrexone, pt will self-taper and take every other day Assessment & Plan (05/25/2022 12:14 PM EST): - continue naltrexone Resolved Problems Problem Noted Date Diagnosed Date Resolved Date Morbid obesity 10/06/2024 01/15/2025 Scabies infestation 08/04/2024 01/16/20 Assessment & Plan (08/04/2024 5:45 PM EDT): Likely consistent with scabies infestation. No indication of any bite garcia or insect bites. Some patches of self excoriation. -prescribed permethrin (Elimite) 5 % cream -encouraged washing all sheets, towels, blankets and laundry. Sleep disturbance 09/17/2023 01/15/2025 Assessment & Plan (06/15/2024 11:25 PM EST): - possible CARLOS, will evaluate with sleep study Assessment & Plan (09/17/2023 4:52 PM EDT): - possible CARLOS, will evaluate with sleep study once his new insurance becomes active Daytime somnolence 03/04/2018 3 History of substance use disorder 06/03/2017 05/25/2022 Encounters Date Type Department Care Team Description 01/20/2025 Telephone [facility] [address] [place] [address] Eneida Alonzo MD Durable Medical Equipment (DME Request: Auto CPAP) 01/05/2025 3:30 PM EDT Office Visit [facility] [address] [place] [address] Eneida Alonzo MD Essential hypertension (Primary Dx); Primary hypertension; CARLOS (obstructive sleep apnea); Dietary counseling; Exercise counseling; Class 1 obesity due to excess calories with serious comorbidity and body mass index (BMI) of 33.0 to 33.9 in adult; Hypertension, unspecified type; Mixed anxiety and depressive disorder; Migraine without status migrainosus, not intractable, unspecified migraine type; Erectile dysfunction, unspecified erectile dysfunction type; Transaminitis; Prediabetes; Weight loss 01/05/2025 Travel 12/29/2024 Patient Outreach [facility] [address] [place] [address] Eneida Alonzo MD Pre-visit Planning (Pre visit planning LVM ) 12/17/2024 Orders Only [facility] [address] [place] [phone] Alesha Bro ANP 12/17/2024 Telephone [facility] [address] [place] [phone] Shai Sol DDS medication did not go through 12/16/2024 1:45 PM EDT Office Visit [facility] [address] [place] [address] Shai Sol DDS 12/15/2024 Refill [facility] [address] [place] [phone] Eneida Alonzo MD 12/09/2024 Telephone [facility] [address] [place] [phone] Eneida Alonzo MD Results 12/07/2024 Orders Only [facility] [address] [place] [phone] Eneida Alonzo MD Primary hypertension (Primary Dx); Erectile dysfunction, unspecified erectile dysfunction type; Lower urinary tract symptoms; Screening for lipid disorders; Screening for diabetes mellitus; Routine screening for STI (sexually transmitted infection) 12/07/[address] [phone] Eneida Alonzo MD Medication Question 11/17/2024 Orders Only [facility] External Provider, [facility] 10/30/2024 Refill [facility] [address] [place] [address] Sarkis Tsang MD Nonintractable headache, unspecified chronicity pattern, unspecified headache type 10/30/2024 Telephone [facility] [address] [place] [address] Eneida Alonzo MD Med Refill 10/30/2024 Telephone [facility] [address] [place], [place] [phone] Eneida Alonzo MD Med Refill 10/29/2024 Refill [facility] [address] [place], [place] [phone] Eneida Alonzo MD Nonintractable headache, unspecified chronicity pattern, unspecified headache type from Last 3 Months Immunizations Immunization Administration Dates Next Due Influenza injectable quadriv alent IIV4 with preservative 03/04/2018,06/25/2017 Influenza injectable quadriv alent preservative free 03/17/2019 Moderna Covid-19 Vaccine 12+ 05/10/2021,10/01/19 21,09/02/2020 Moderna Covid-19 Vaccine 6+ Bivalent 04/03/2022 Tdap 11/26/2017,08/17/2010 Social History Tobacco Use Types Packs/Day Years Used Date Smoking Tobacco: Never Passive Smoke Exposure: Never Smokeless Tobacco: Never Tobacco Cessation:Counseling Given: Not Answered Depression Answer Date Recorded Patient Health Questionnaire-9 [...] Orientation Straight 03/12/2022 10 :32 AM EDT Last Filed Vital Signs Vital Sign Reading Time Taken Comments Blood Pressure 118/82 01/05/2025 3:54 PM EDT Pulse 85 01/05/2025 3:54 PM EDT Temperature 36.4 C (97.6 F) 01/05/2025 3:54 PM EDT Respiratory Rate 20 01/05/2025 3:54 PM EDT Oxygen Saturation 99% 01/05/2025 3:54 PM EDT Inhaled Oxygen Concentration - - Weight 103 kg (226 lb 3.2 oz) 01/05/2025 3:54 PM EDT Height 175.3 cm (5' 9 ) 01/05/2025 3:54 PM EDT Body Mass Index 33.4 01/05/2025 3:54 PM EDT Plan of Treatment Upcoming Encounters Date Type Department Care Team (Late st Contact Info) Description 04/06/2025 3:30 PM EST Office Visit [facility] [address] [place] [address] Eneida Alonzo MD [address] [place] [address] Health Maintenance Due Date Last Done Comments Dental Oral Exam 1981 Dental Prophylaxis 1981 Dental X-Ray: Bitewings 1981 Alcohol/Substance Use Screening 1993 Family Planning (PISQ) 1996 HPV Vaccines (1 - Male 3-dose series) 1996 COVID-19 Vaccine ( season) 2025 04/03/2022, 05/10/2021, 09/30/2020, Additional history exists Influenza Vaccine (#1) 2025 , 03/17/2019, 03/04/2018, Additional history exists Disability Screening 06/02/2025 06/02/2024 Diabetes: Hemoglobin A1C 2025 025, 09/17/2023, 07/13/2021 Depression Screening 01/05/2026 01/05/2025, 01/06/20 25 SDOH Screening 01/05/2026 01/05/2025 Tobacco Screening 01/05/2026 01/05/2025 Dental X-Ray: Full Mouth 10/08/2027 10/06/2024 DTaP/Tdap/Td Vaccines (3 - Td or Tdap) 11/27/2027 11/26/2017, 08/17/2010 Lipid Panel 2029 2024, 05/0 11/2023, 07/13/2021 Zoster Vaccines (1 of 2) 12/09/2031 RSV Patients and Patients Aged 60 years or older (1 - 1-dose 75+ series) 2056 HIV Screening Completed 2024 Hepatitis C Screening Completed 2024 HIB Vaccines Aged Out No longer eligi ble based on patient's age to complete this topic Hepatitis A Vaccines Aged Out No long er eligible based on patient's age to complete this topic Hepatitis B Vaccines Discontinued IPV Vaccines Aged Out No longer eligi ble based on patient's age to complete this topic Meningococcal B Vaccine Aged Out No l onger eligible based on patient's age to complete this topic Meningococcal Vaccine Aged Out No prem chani eligible based on patient's age to complete this topic Pneumococcal Vaccine: Pediatrics (0 to 5 Years) and At-Risk Patients (6 to 49) Years Aged Out No longer eligible based on patient's age to complete this topic RSV under 20 months Aged Out No longe r eligible based on patient's age to complete this topic Rotavirus Vaccines Aged Out No longer eligible based on patient's age to complete this topic Procedures Procedure Name Priority Date/Time Associated Diagnosis Comments 18 EXTRACTION, ERUPTED TOOTH OR EXPOSED ROOT (ELEVATION/FORCEPS REMOVAL) Routine 12/16/2024 1:45 PM EDT SYPHILIS SCREEN Routine 2024 9:41 AM EDT Routine screening for STI (sexually transmitted infection) HIV 1/2 ANTIGEN/ANTIBODY, FOURTH GENERATION W/RFL Routine 2024 9:41 AM EDT Routine screening for STI (sexually transmitted infection) HEPATITIS C AB W/REFL TO HCV RNA, QN, PCR Routine 2024 9:41 AM EDT Routine screening for STI (sexually transmitted infection) HEPATITIS B SURFACE ANTIGEN, EIA Routine 2024 9:41 AM EDT Routine screening for STI (sexually transmitted infection) CHLAMYDIA/TRICHOMONAS /NEISSERIA GONORRHOEAE, PCR, URINE Routine 2024 9:41 AM EDT Routine screening for STI (sexually transmitted infection) TESTOSTERONE, TOTAL, MALES (ADULT), IA Routine 2024 9:41 AM EDT Erectile dysfunction, unspecified erectile dysfunction type PSA, SCREEN Routine 2024 9:41 AM EDT Erectile dysfunction, unspecified erectile dysfunction type LIPID PANEL WITH REFLEX TO DIRECT LDL Routine 2024 9:41 AM EDT Screening for lipid disorders COMPREHENSIVE METABOLIC PANEL Routine 2024 9:41 AM EDT Primary hypertension HEMOGLOBIN A1C Routine 2024 9:41 AM EDT Screening for diabetes mellitus TSH W/REFLEX TO FT4 Routine 2024 9 :41 AM EDT Primary hypertension [place] DISEASE BY PCR Routine 11/17/2024 1:26 PM EDT LYME DISEASE (BORRELIA SPP)DNA,QL RT PCR,MISC Routine 11/17/2024 1:26 PM EDT LYME DISEASE AB W/REFL TO BLOT (IGG, IGM) Routine 11/17/2024 1:26 PM EDT MONONUCLEOSIS TEST, QUALITATIVE Routine 11/17/2024 1:26 PM EDT BLOOD CULTURE (FIRST) Routine 11/17/2024 1:26 PM EDT BLOOD CULTURE (SECOND) Routine 11/17/2024 1:26 PM EDT XR CHEST 2 VIEWS Routine 11/17/2024 10:4 0 AM EDT CREATINE KINASE, TOTAL Routine 11/17/2024 10:12 AM EDT MAGNESIUM Routine 11/17/2024 10:12 AM EDT BASIC METABOLIC PANEL Routine 11/17/2024 10:12 AM EDT HEPATIC FUNCTION PANEL Routine 11/17/2024 10:12 AM EDT CBC WITH AUTO DIFFERENTIAL Routine 11/17/2024 10:12 AM EDT SARS COV2/INFLUENZA A/B AND RSV RNA QL NAAT Routine 11/17/2024 10:12 AM EDT URINALYSIS WITH REFLEX MICROSCOPIC Routine 11/17/2024 10:11 AM EDT PANORAMIC RADIOGRAPHIC IMAGE Routine 10/06/2024 1:00 PM EDT Dental caries Symptomatic irreversible pulpitis from Last 3 Months or Most Recently Relevant to Health Maintenance Results * Chlamydia/N. Gonorrhoeae, PCR, Urine (2024 9:41 AM EDT) CT PCR, Urine NOT DETECTED Not Detect. [facility] Comment:A not detected test result [...] NG PCR, Urine NOT DETECTED Not Detect. [facility] Comment:A not detected test result [...] 9:41 AM EDT 2024 11:18 AM EDT Eneida Alonzo MD LAB URINE ORDERABLES Final Resul t Performing Organization Address [facility] Co de Phone Number [facility] [address] [place] [phone] * Syphilis Screen (2024 9:41 AM EDT) Syphilis Screen Nonreactive Nonreactive [facility] Blood Venous blood specimen / Unknown 2024 9:41 AM EDT 2024 11:17 AM EDT Eneida Alonzo MD LAB BLOOD ORDERABLES Final Resul t Performing Organization Address [facility] Co de Phone Number [facility] [address] [place] [phone] * PSA, Screen (2024 9:41 AM EDT) Pathologist [facility] PSA, Total 2.87 <0.05 - 4.0 ng/mL [facility] Comment:PSA methodology: Neville Bailon i ChemiluminescentMicroparticle Immunoassay (CMIA) Blood Venous blood specimen / Unknown 2024 9:41 AM EDT 2024 11:17 AM EDT Eneida Alonzo MD LAB BLOOD ORDERABLES Final Resul t Performing Organization Address [facility]/ZIP Co de Phone Number [facility] [address] [place] [phone] * TSH with Reflex to Free T4 (2024 9:41 AM EDT) [facility] TSH reflex Free T4 1.33 0.32 - 4.0 uIU/mL [facility] Blood 2024 9:41 AM EDT 2024 11:17 AM EDT Eneida Alonzo MD LAB BLOOD ORDERABLES Final Resul t Performing Organization Address City/[facility] Co de Phone Number [facility] [address] [place] [phone] * (ABNORMAL) Lipid Panel with Reflex to Direct LDL (2024 9:41 AM EDT) Pathologist [facility] Triglycerides 93 <150 mg/dL [facility] Comment:Desirable Triglyceri de: less than 150 mg/dLBorderline High Triglyceride 150-199 mg/dLHigh Triglyceride: 200-499 mg/dLVery High Triglyceride: greater than or equal to 5OO mg/dL Cholesterol 234(H) <200 mg/dL [facility] Comment:Desirable Cholestero l: less than 200 mg/dLBorderline High Cholesterol: 200-239 mg/dLHigh Cholesterol: greater than 239 mg/dL LDL Cholesterol Calculated 168(H) <100 mg/dL [facility] Comment:Desirable LDL: less than 100 mg/dLNear Optimal/Above Optimal LDL: 110- 129 mg/dLBorderline High LDL: 130-159 mg/dLHigh LDL: 160-189 mg/dLVery High LDL: greater than or equal to 190 mg/dL HDL Cholesterol 48 >40 mg/dL [facility] Comment:Desirable HDL: great er than 40 mg/dL Note: This HDL assay may give artificially low results in patients with liver disease. Blood 2024 9:41 AM EDT 2024 11:17 AM EDT Eneida Alonzo MD LAB BLOOD ORDERABLES Final Resul t Performing Organization Address City/[facility] Co de Phone Number [facility] [address] [place] [phone] * Hepatitis C Antibody with Reflex to HCV, RNA, Quantitative, Real-Time PCR (2024 9:41 AM EDT) Hepatitis C Antibody Nonreactive Nonreactive [facility] Comment:Antibodies to HCV no t detected; does not exclude early acuteHCV infection. Blood Venous blood specimen / Unknown 2024 9:41 AM EDT 2024 11:17 AM EDT Eneida Alonzo MD LAB BLOOD ORDERABLES Final Resul t Performing Organization Address City/[facility]/ZIP Co de Phone Number [facility] [address] [place] [phone] * Hepatitis B surface antigen, EIA (2024 9:41 AM EDT) Hepatitis B Surface Ag Negative Negative [facility] Blood Venous blood specimen / Unknown 2024 9:41 AM EDT 2024 11:17 AM EDT Eneida Alonzo MD LAB BLOOD ORDERABLES Final Resul t Performing Organization Address City/[facility]/ZIP Co de Phone Number [facility] [address] [place] [phone] * HIV-1/2 Antigen and Antibodies, Fourth Generation, with Reflexes (2024 9:41 AM EDT) HIV AB/AG Nonreactive Nonreactive [facility] Comment:HIV-1 p24 Ag and/or HIV-1/HIV-2 Ab not detected.A test result that is nonreactive does not exclude thepossibility of exposure to or infection with HIV-1 and/orHIV-2. Nonreactive results in this assay for individualswith prior exposure to HIV-1 and/or HIV-2 may be due toantigen and antibody levels that are below the limit ofdetection of this assay.The [employer] HIV Ag/Ab Combo assay result andsupplemental assay results should be interpreted inconjunction with the patient's clinical presentation,history and other laboratory results. If the results areinconsistent with clinical evidence, additional testing issuggested to confirm the result. Blood Venous blood specimen / Unknown 2024 9:41 AM EDT 2024 11:17 AM EDT us Eneida Alonzo MD LAB BLOOD ORDERABLES Final Resul t Performing Organization Address City/[facility]/ZIP Co de Phone Number [facility] [address] [place] [address] [phone] * Testosterone, Total, males (Adult), IA (2024 9:41 AM EDT) Testosterone, Total 676 250 - 1100 ng/dL [facility] Comment:For additional infor sue, please refer tohttp://education.[facility] [facility].[place]. com. cn/faq/LnwuuGzrgfieryxedXMREVOGKT588(This link is being provided for informational/educational purposes only.)This test was developed and its analytical performancecharacteristics have been determined by [facility] [place], [place]. It hasnot been cleared or approved by the U.S. Food and DrugAdministration. This assay has been validated pursuantto the CLIA regulations and is used for clinicalpurposes.THIS TEST WAS PERFORMED AT:[facility] [place] [address]KVYEEQJGIGI ADAMES MD,PHD Blood Venous blood specimen / Unknown 2024 9:41 AM EDT 2024 11:06 AM EDT Eneida Alonzo MD LAB BLOOD ORDERABLES Final Resul t Performing Organization Address [facility]/ZIP Co de Phone Number [facility] [address] [place] [phone] * (ABNORMAL) Hemoglobin A1c (2024 9:41 AM EDT) Hemoglobin A1c 6.3(H) <6.0 % [facility] Comment:Hemoglobin A1C Refer ence Range Adults: 4.8 - 6.0 % Non diabetic: < 6.0 % Goal: < 7.0 %Additional Action Suggested: > 8.0 %Note: Hemoglobin A1c results are invalid for patients with abnormal amounts of HbF. Blood transfusions may impact the HbA1c concentration in the patient sample. Estimated Average Glucose 134 mg/dL [facility] Comment:eAG = Estimated ave rage glucose which is %A1C expressed asaverage glucose, using the formula of the F1K-YwxbnonDtjzziu Glucose study (ADAG), Diabetes Care, Vol.31,#8,Dec. 2007 Blood Venous blood specimen / Unknown 2024 9:41 AM EDT 2024 11:06 AM EDT Eneida Alonzo MD LAB BLOOD ORDERABLES Final Resul t Performing Organization Address City/[facility]/ZIP Co de Phone Number [facility] [address] [place] [phone] * (ABNORMAL) Comprehensive Metabolic Panel (2024 9:41 AM EDT) Sodium 139 135 - 145 mmol/L [facility] Potassium 3.7 3.3 - 5.1 mmol/L [facility] Chloride 106 96 - 108 mmol/L [facility] Carbon Dioxide 28 22 - 29 mmol/L [facility] Anion Gap 9(L) 12 - 20 [facility] Urea Nitrogen (BUN) 13 9 - 16 mg/dL [facility] Creatinine, Serum 1.09 0.5 - 1.4 mg/dL [facility] Estimated Glomerular Filt Rate >60 [facility] Comment:Chronic Kidney Disea se: Estimated GFR < 60 mL/min/1.29v9Auakzu Kidney Disease: Estimated GFR < 15 mL/min/1.73m2 Glucose 107 60 - 115 mg/dL [facility] Calcium 9.4 8.4 - 10.2 mg/dL [facility] Bilirubin, Total 0.5 0.0 - 1.0 mg/dL [facility] Aspartate Amino Transferase 48(H) 5 - 37 U/L [facility] Alanine Aminotransferase 43(H) 0 - 40 U/L [facility] Total Protein 7.9 6.5 - 8.0 g/dL [facility] Albumin Level 4.5 3.5 - 5.0 g/dL [facility] Alkaline Phosphatase 94 39 - 117 U/L [facility] Blood Venous blood specimen / Unknown 2024 9:41 AM EDT 2024 11:17 AM EDT us Eneida Alonzo MD LAB BLOOD ORDERABLES Final Resul t [facility] [address] [place] [phone] * Blood Culture (First) (11/17/2024 1:26 PM EDT) Blood Venous blood specimen / Unknown 11/17/2024 1:26 PM EDT 11/17/2024 1:33 PM EDT Comment:Blood Narrative [facility] - 11/22/2024 3:34 PM EDT Blood Culture (First) No growth after 5 days. Specimen Source: Blood Generic External Data Provider LAB MICROBIOLOGY - GENERAL ORDERABLES Final Result Performing Organization Address [facility]/ZIP Co de Phone Number [facility] [address] [place] [phone] * Blood Culture (Second) (11/17/2024 1:26 PM EDT) Blood Venous blood specimen / Unknown 11/17/2024 1:26 PM EDT 11/17/2024 1:33 PM EDT Comment:Blood Narrative [facility] - 11/22/2024 3:33 PM EDT Blood Culture (Second) No growth after 5 days. Specimen Source: Blood Generic External Data Provider LAB MICROBIOLOGY - GENERAL ORDERABLES Final Result Performing Organization Address [facility] Co de Phone Number [facility] [address] [place] [phone] * Tick-borne Disease, Acute Molecular Panel (11/17/2024 1:26 PM EDT) Babesia microti DNA, Real Time PCR NOT DETECTED NOT DETECTED [facility] Comment:This test was develo ped and its analytical performancecharacteristics have been determined by [employer]. It has not been cleared or approved by theFDA. This assay has been validated pursuant to the CLIAregulations and is used for clinical purposes.THIS TEST WAS PERFORMED AT:[employer] [place] [id number] AUSTIN MD Ehrlichia chaffensis DNA Real Time PCR NOT DETECTED NOT DETECTED [facility] Comment:This test was develo ped and its analytical performancecharacteristics have been determined by [employer]. It has not been cleared or approved by theFDA. This assay has been validated pursuant to the CLIAregulations and is used for clinical purposes.THIS TEST WAS PERFORMED AT:[employer] [address] [phone] AUSTIN MD Anaplasma phagocytophilum DNA, QL Real Time PCR NOT DETECTED NOT DETECTED [facility] Comment:This test was develo ped and its analytical performancecharacteristics have been determined by [employer]. It has not been cleared or approved by theFDA. This assay has been validated pursuant to the CLIAregulations and is used for clinical purposes. Borrelia Species DNA, Ql Real Time PCR NOT DETECTED NOT DETECTED [facility] Comment:This test was develo ped and its analytical performancecharacteristics have been determined by [employer]. It has not been cleared or approved by theFDA. This assay has been validated pursuant to the CLIAregulations and is used for clinical purposes.For additional information, please refer tohttps://education.[employer]/faq/jrn900(This link is being provided for informational/educational purposes only.)THIS TEST WAS PERFORMED AT:[facility] [address] [phone] AUSTIN MD Borrelia Miyamotoi DNA, Ql Real Time PCR NOT DETECTED NOT DETECTED [facility] Comment:This test was develo ped and its analytical performancecharacteristics have been determined by [employer]. It has not been cleared or approved by theFDA. This assay has been validated pursuant to the [employer] and is used for clinical purposes.THIS TEST WAS PERFORMED AT:[employer] [address] [phone] AUSTIN MD Comment SEE NOTE [facility] Comment:A negative result do es not exclude Borrelia infectionas the concentration of the organism in blood may be lowor non-existent in patients with Lyme disease, and maydepend on timing of specimen collection from onset ofsymptoms. Clinical correlation is recommended andadditional studies such as serologic testing may beindicated.THIS TEST WAS PERFORMED AT:[employer] [address] [id number] AUSTIN MD 11/17/2024 1:26 PM EDT 11/17/2024 1:33 PM EDT us Generic External Data Provider LAB BLOOD ORDERAB LES Final Result Performing Organization Address [facility]/ZIP Co de Phone Number [facility] [address] [place] [phone] * Lyme Disease Ab with Reflex to Blot (IgG, IgM) (11/17/2024 1:26 PM EDT) Lyme Antibody Screen <0.90 index [facility] Comment:Index Interpretatio n ----- < 0.90 Negative 0.90-1.09 Equivocal > 1.09 PositiveAs recommended by the Food and Drug Administration(FDA), all samples with positive or equivocalresults in a Borrelia burgdorferi antibody screenwill be tested using a blot method. Positive orequivocal screening test results should not beinterpreted as truly positive until verified as suchusing a supplemental assay (e.g., B. burgdorferi blot).The screening test and/or blot for B. burgdorferiantibodies may be falsely negative in early stagesof Lyme disease, including the period when erythemamigrans is apparent.THIS TEST WAS PERFORMED AT:[employer] [facility] [employer] [place] [id number] AUSTIN MD Lyme Blot [facility] 11/17/2024 1:26 PM EDT 11/17/2024 1:33 PM EDT us Generic External Data Provider LAB BLOOD ORDERAB LES Final Result Performing Organization Address City/[facility]/ZIP Co de Phone Number [facility] [address] [place] [phone] * Borrelia Species DNA, Qualitative Real-Time PCR, Miscellaneous (11/17/2024 1:26 PM EDT) Pathologist [facility] Borrelia Species DNA, QL Real Time PCR, Misc NOT DETECTED NOT DETECTED [facility] Comment:The diagnostic value of a negative Borrelia speciesPCR result from whole blood has not beenestablished. A negative result does not excludeBorrelia infection because the concentration of theorganism in blood tends to be low or non- existent inpatients with borreliosis.This test was developed and its analytical performancecharacteristics have been determined by [employer]. It has not been cleared or approved by theA. This assay has been validated pursuant to the CLIAregulations and is used for clinical purposes.For additional information, please refer totps://education.[facility].[place]. com. cn/faq/ryq826(This link is being provided for informational/educational purposes only.)THIS TEST WAS PERFORMED AT:[employer] [place] [id number] AUSTIN MD 11/17/2024 1:26 PM EDT 11/17/2024 1:33 PM EDT Generic External Data Provider LAB BLOOD ORDERAB LES Final Result Performing Organization Address [facility] Co de Phone Number [facility] [address] [place] [phone] * Mononucleosis Test, Qualitative (11/17/2024 1:26 PM EDT) Monotest Negative Negative [facility] 11/17/2024 1:26 PM EDT 11/17/2024 1:33 PM EDT [employer] External Data Provider LAB BLOOD ORDERAB LES Final Result Performing Organization Address [facility] Co de Phone Number [facility] [address] [place] [phone] * XR Chest 2 Views (11/17/2024 10:40 AM EDT) Anatomical Region Laterality Modality Chest Radiographic Yaneth ging 11/17/2024 10:4 0 AM EDT Narrative 11/17/2024 10:57 AM EDT [address] [address] XRay Report Signed Patient: Norbert Cerrato MR#: [id number] : 1980 Acct:[id number] Age/Sex: 43 / M ADM Date: 11/17/24 Loc: .ED Attending Dr: Ordering Physician: Caro Campbell DO Date of Service: 11/17/24 Procedure(s): XR chest 2V Accession Number(s): [id number] cc: Caro Campbell DO; Eneida Alonzo MD EXAMINATION: XR CHEST CLINICAL INFORMATION: cough, fever COMPARISON: March 28, 2024 TECHNIQUE: 2 views of the chest were obtained. FINDINGS: No significant abnormality is noted involving the heart, lungs, mediastinum, bony thorax or soft tissues. XR/XR chest 2V IMPRESSION: No acute disease, no change. Electronically signed by: Nikko Hernández MD 11/17/2024 10:54 AM EDT Dictated By: Nikko Hernández MD Signed By: <Electronically signed by Nikko Hernández MD in OV> 11/17/24 1054 DD/ 1040 TD/TT: 11/17/24 1052 Soap Chipper: Procedure Note Donotuseinterpreter, Image - 11/17/[address] [address] XRay Report Signed Patient: Mel CerratoR#: [id number] : 1980Acct:[id number] Age/Sex: 43 / MADM Date: 11/17/24 Loc: .ED Attending Dr: Ordering Physician: Caro Campbell DO Date of Service: 11/17/24 Procedure(s): XR chest 2V Accession Number(s): [id number] cc: Caro Campbell DO; Eneida Alonzo MD EXAMINATION: XR CHEST CLINICAL INFORMATION: cough, fever COMPARISON: March 28, 2024 TECHNIQUE: 2 views of the chest were obtained. FINDINGS: No significant abnormality is noted involving the heart, lungs, mediastinum, bony thorax or soft tissues. XR/XR chest 2V IMPRESSION: No acute disease, no change. Electronically signed by: Nikko Hernández MD 11/17/2024 10:54 AM EDT RP Dictated By: Nikko Hernández MD Signed By: <Electronically signed by Nikko Hernández MD in OV> 11/17/24 1054 DD/ 1040 TD/TT: 11/17/24 1052 Soap Chipper: [facility] External Provider IMG XR PROCEDURES Edited Result - Final * SARS-CoV-2 RNA, Influenza A/B, and RSV RNA, Ql NAAT (11/17/2024 10:12 AM EDT) Influenza A PCR NEGATIVE Negative [facility] Influenza B PCR NEGATIVE Negative [facility] Resp Syncy Virus RNA Qual PCR NEGATIVE Negative [facility] SARS COV2 PCR NEGATIVE Negative [facility] Comment:All test results mus t be [...] use by authorized laboratories.Testing performed on the [employer] GeneXpert utilizingreal-time RT-PCR.All SARS CoV2 and positive influenza A/B results arereported to [facility]. 11/17/2024 10:1 2 AM EDT 11/17/2024 10:15 AM EDT Generic External Data Provider LAB MICROBIOLOGY - GENERAL ORDERABLES Final Result [facility] [address] [place] [phone] * (ABNORMAL) CBC auto differential (11/17/2024 10:12 AM EDT) White Blood Count 4.6(L) 4.8 - 10.8 X10*3/uL [facility] Red Blood Count 4.68 4.60 - 5.80 X10*6/uL [facility] Hemoglobin 14.1 14.0 - 18.0 g/dl [facility] Hematocrit 40.5(L) 42.0 - 52.0 % [facility] Mean Corpuscular Volume 86.5 80.0 - 98.0 fL [facility] Mean Corpuscular Hemoglobin 30.1 27.0 - 33.0 pg [facility] Mean Corpuscular HGB Conc 34.8 31.0 - 36.0 g/dl [facility] Red Cell Distribution Width 13.2 11.0 - 16.0 % [facility] Platelet Count 216 160 - 400 X10*3/uL [facility] Mean Platelet Volume 10.3 9.4 - 12.4 fL [facility] Neutrophils Percent Auto 69.2 45 - 73 % [facility] Imm Gran Pct Auto 0.2 0.0 - 0.4 % [facility] Lymphocytes Percent Auto 17.6(L) 20 - 40 % [facility] Monocytes Percent Auto 9.7 2 - 11 % [facility] Eosinophils Percent Auto 3.1 0 - 4 % [facility] Basophils Percent Auto 0.2 0 - 2 % [facility] NRBC Pct Auto 0.0 0.0 - 0.2 /100WBC [facility] Neutrophils Absolute Auto 3.2 2.0 - 8.3 x10*3/uL [facility] Imm Gran Abs Auto 0.01 0.00 - 0.03 X10*3/uL [facility] Lymphocytes Absolute Auto 0.8(L) 1.2 - 4.9 X10*3/uL [facility] Monocytes Absolute Auto 0.4 0.1 - 1.2 X10*3/uL [facility] Eosinophils Absolute Auto 0.1 0.0 - 0.4 X10*3/uL [facility] Basophils Absolute Auto 0.0 0.0 - 0.2 X10*3/uL [facility] NRBC Abs Auto 0.000 0.0 - 0.012 X10*3/uL [facility] 11/17/2024 10:1 2 AM EDT 11/17/2024 10:15 AM EDT us Generic External Data Provider LAB BLOOD ORDERAB LES Final Result Performing Organization Address [facility] Co de Phone Number [facility] [address] [place] [phone] * Magnesium (11/17/2024 10:12 AM EDT) Magnesium 1.9 1.6 - 2.6 mg/dL [facility] 11/17/2024 10:1 2 AM EDT 11/17/2024 10:15 AM EDT us Generic External Data Provider LAB BLOOD ORDERAB LES Final Result Performing Organization Address [facility] de Phone Number [facility] [address] [place] [phone] * Creatine Kinase, Total (11/17/2024 10:12 AM EDT) Creatine Kinase Total 136 38 - 174 U/L [facility] 11/17/2024 10:1 2 AM EDT 11/17/2024 10:15 AM EDT us Generic External Data Provider LAB BLOOD ORDERAB LES Final Result Performing Organization Address [facility] de Phone Number [facility] [address] [place] [phone] * (ABNORMAL) Hepatic Function Panel (11/17/2024 10:12 AM EDT) Bilirubin, Total 0.6 0.0 - 1.0 mg/dL [facility] Bilirubin, Direct 0.2 0.0 - 0.5 mg/dL [facility] Aspartate Amino Transferase 39(H) 5 - 37 U/L [facility] Alanine Aminotransferase 38 0 - 40 U/L [facility] Total Protein 7.5 6.5 - 8.0 g/dL [facility] Albumin Level 4.3 3.5 - 5.0 g/dL [facility] Alkaline Phosphatase 93 39 - 117 U/L [facility] 11/17/2024 10:1 2 AM EDT 11/17/2024 10:15 AM EDT us Generic External Data Provider LAB BLOOD ORDERAB LES Final Result [facility] [address] [place] [phone] * (ABNORMAL) Basic Metabolic Panel (11/17/2024 10:12 AM EDT) Pathologist [facility] Sodium 135 135 - 145 mmol/L [facility] Potassium 3.8 3.3 - 5.1 mmol/L [facility] Chloride 103 96 - 108 mmol/L [facility] Carbon Dioxide 26 22 - 29 mmol/L [facility] Anion Gap 10(L) 12 - 20 [facility] Urea Nitrogen (BUN) 13 9 - 16 mg/dL [facility] Creatinine, Serum 1.26 0.5 - 1.4 mg/dL [facility] Creatinine Clr Calc Pharmacy 93.3 [facility] Comment:eGFR (calculated fro m the MDRD study equation) and eCrCl(calculated from the Cockcroft-Gault equation) are based ondifferent parameters and may not yield comparable results.If eCrCl result is absurd, please check patient'sheight/weight. Estimated Glomerular Filt Rate >60 [facility] Comment:Chronic Kidney Disea se: Estimated GFR < 60 mL/min/1.14a8Prgdrz Kidney Disease: Estimated GFR < 15 mL/min/1.73m2 Glucose 105 60 - 115 mg/dL [facility] Calcium 8.8 8.4 - 10.2 mg/dL [facility] 11/17/2024 10:1 2 AM EDT 11/17/2024 10:15 AM EDT us Generic External Data Provider LAB BLOOD ORDERAB LES Final Result Performing Organization Address [facility]/ZIP Co de Phone Number [facility] [address] [place] [phone] * Urinalysis w/reflex microscopic (11/17/2024 10:11 AM EDT) Color Urine Yellow [facility] Appearance Urine Clear [facility] PH 6.0 5.0 - 9.0 [facility] Glucose Urine UA Negative Negative mg/dL [facility] Urine Blood Negative Negative [facility] Specific Rogers - Urine 1.020 1.005 - 1.025 [facility] Urine Protein Negative Neg-Trace mg/dL [facility] Urine Ketones Negative Negative mg/dL [facility] Nitrite Urine Negative Negative [facility] Leukocyte Esterase Urine Negative Negative [facility] 11/17/2024 10:1 1 AM EDT 11/17/2024 10:15 AM EDT Narrative [facility] - 11/17/2024 10:22 AM EDT [id number], [employer] Generic External Data Provider LAB URINE ORDERAB LES Final Result Performing Organization Address [facility] Co de Phone Number [facility] [address] [place] [phone] from Last 3 Months Insurance [facility] - [place] PARTIAL (MEDICAID) Care Teams Miner Assistant Relationship Specialty Start Date End Date Eneida Alonzo MD [address] [place] [address] PCP - General Family Medicine 12/08/18
[2025-01-22 18:13] LABS: MANUAL DIFF FLAG NO
[2025-01-22 18:23] LABS: Hemoglobin A1C 157.9949 umol/L; Total Hemoglobin (HGBA1C) 3627.7422 umol/L
[2025-01-22 19:00] LABS: Alanine Aminotransferase 32 U/L (0-40); Albumin Level 4.7 g/dL (3.5-5.0); Alkaline Phosphatase 98 U/L (39-117); Anion Gap 12 (12-20); Aspartate Amino Transferase 36 U/L (5-37); Blood Urea Nitrogen 22 mg/dL (9-16); Calcium 10.0 mg/dL (8.4-10.2); Carbon Dioxide 25 mmol/L (22-29); Chloride 106 mmol/L (96-108); Estimated Glomerular Filt Rate > 60; Potassium 3.9 mmol/L (3.3-5.1); Sodium 139 mmol/L (135-145); Total Protein 8.4 g/dL (6.5-8.0)
[2025-01-22 19:09] LABS: Hematocrit 41.3 % (42.0-52.0); Hemoglobin 14.1 g/dl (14.0-18.0); Imm Gran Abs Auto 0.01 X10*3/uL (0.00-0.03); Imm Gran Pct Auto 0.1 % (0.0-0.4); Lymphocytes Absolute Auto 3.0 X10*3/uL (1.2-4.9); Mean Corpuscular HGB Conc 34.1 g/dl (31.0-36.0); Mean Corpuscular Hemoglobin 29.9 pg (27.0-33.0); Mean Corpuscular Volume 87.7 fL (80.0-98.0); NRBC Abs Auto 0.000 X10*3/uL (0.0-0.012); NRBC Pct Auto 0.0 /100WBC (0.0-0.2); Platelet Count 279 X10*3/uL (160-400); Red Blood Count 4.71 X10*6/uL (4.60-5.80); White Blood Count 7.2 X10*3/uL (4.8-10.8)
== END 2025-01-22 16:13 | disposition home or self-care (01) ==
LOC: HO.HHCL 16:12
PROVIDERS: PCP Family Medicine; Visit Provider Family Medicine
DX: R73.03 Prediabetes (principal); R63.4 Abnormal weight loss
CPT/HCPCS: 36415; 80053; 83036; 84443; 85025

== ENCOUNTER 2025-04-13 13:13 | Outpatient (AMB) | payer OTHER, SELFPAY ==
--- OUTSIDE RECORDS SUMMARY | 2025-04-06 15:30 | XMS_ITS | Encounter Summary ---
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 Phone Eneida Alonzo MD Primary Care Provider [phone] Reason for Referral * Consultation (Urgent) - Authorized Specialty Diagnoses / Procedures Referred By Contigor t Referred To Contact Sleep Medicine Diagnoses CARLOS (obstructive sleep apnea) Eneida Alonzo MD [address] [place] [address] Phone: tel: fax: [facility] [address] Main [facility] Entrance [place], [place] Phone: tel: fax: Referral ID Status Reason Start Date Expiration Date Visits Requested Visits Authorized [id number] Authorized Specialty Services Required 5 04/11/2026 1 1 Reason for Visit * Reason Comments Follow-up Encounter Details Date Type Department Care Team (Late st Contact Info) Description 04/06/2025 3:30 PM EST Office Visit [facility] MED[facility] [address] [place], [place] [id number] Eneida Alonzo MD [address] [place], [place] [phone] Hypertension, unspecified type (Primary Dx); Allergic rhinitis, unspecified seasonality, unspecified trigger; Prediabetes; Class 2 obesity due to excess calories without serious comorbidity with body mass index (BMI) of 35.0 to 35.9 in adult; Erectile dysfunction, unspecified erectile dysfunction type; Posttraumatic stress disorder; Mixed anxiety and depressive disorder; CARLOS (obstructive sleep apnea); Migraine without status migrainosus, not intractable, unspecified migraine type; Callus of toe Social History Tobacco Use Types Packs/Day Years Used Date Smoking Tobacco: Never Passive Smoke Exposure: Never Smokeless Tobacco: Never Tobacco Cessation:Counseling Given: Not Answered Alcohol Answer Date Recorded How often do you have a drink containing alcohol ? 0 04/06/2025 How many drinks containing a lcohol do you have on a typical day when you are drinking? 0 04/06/2025 How often do you have six or more drinks on one occasion? 0 04/06/2025 Depression Answer Date Recorded Patient Health Questionnaire-9 [...] AM EDT documented as of this encounter Last Filed Vital Signs Vital Sign Reading Time Taken Comments Blood Pressure 130/90 04/06/2025 3:44 PM EST Pulse 56 04/06/2025 3:44 PM EST Temperature 35.4 C (95.7 F) 04/06/2025 3:44 PM EST Respiratory Rate 20 04/06/2025 3:44 PM EST Oxygen Saturation 99% 04/06/2025 3:44 PM EST Inhaled Oxygen Concentration - - Weight 102 kg (224 lb) 04/06/2025 3:44 PM EST Height 177.8 cm (5' 10 ) 04/06/2025 3:44 PM EST Body Mass Index 32.14 04/06/2025 3:44 PM EST documented in this encounter Progress Notes * Eneida Alonzo MD - 04/06/2025 3:30 PM EST Subjective Norbert Cerrato is a 44 y.o. male who has hypertension, migraine, and erectile dysfunction, andpatient presents for follow up of chronic conditions. Background: Problem List[1] Our last encounter was 01/05/2025. Interval history: Today: - Has not used a CPAP machine; unaware of how to access or evaluate CPAP devices - Reports blood pressure is a little bit high per previous measurements; does not check blood pressure at home - Reports weight loss in the past year while taking an apple cider vinegar supplement; has stopped taking the supplement recently and noticed weight gain since discontinuation - Not currently exercising - Reports Cialis is not effective for erectile dysfunction; continues to take it intermittently - Experiences headaches when taking 20 mg Cialis - Has an upcoming urology appointment in April - Takes topiramate daily for headaches - Takes cetirizine for allergies and blood pressure - Takes hydrochlorothiazide - Has not taken rizatriptan (Maxalt) yet; instructed to use only for severe headaches - Reports episodes of a ayala sensation that goes through the whole body, followed by a pounding, pulsating headache, sometimes weekly - Describes the headache as pulsating, with a sensation of blood rushing to the head, and can feel and almost hear the pulse - Reports these symptoms have been ongoing for a long time - Notes the left side of the head feels more raised than the right, with the pulsation felt on the left - Previously evaluated by neurologist Dr. Snow, who diagnosed migraines and recommended an MRI, which was not completed due to cost - Reports persistent corn on right pinky toe, recurrent and bothersome - No dizziness when lying down - Needs a tooth extraction - Lives in a house with many children - Reports increased blood sugar levels - States that many symptoms seem to be related to the described headache and pulsating sensation Review of Systems Constitutional: Negative for activity change, appetite change and fever. Respiratory: Negative for shortness of breath. Cardiovascular: Negative for chest pain. Objective Vitals: 04/06/25 1544 BP: (!) 130/90 BP Location: Left arm Patient Position: Sitting BP Cuff Size: Large adult Pulse: 56 Resp: 20 Temp: 95.7 ??F (35.4 ??C) TempSrc: Oral SpO2: 99% Weight: 224 lb (102 kg) Height: 5' 10 (1.778 m) Physical Exam Constitutional: General: He is not in acute distress. Appearance: Normal appearance. He is not ill-appearing. HENT: Head: Normocephalic and atraumatic. Mouth/Throat: Mouth: Mucous membranes are moist. Eyes: Extraocular Movements: Extraocular movements intact. Pupils: Pupils are equal, round, and reactive to light. Cardiovascular: Rate and Rhythm: Normal rate and regular rhythm. Heart sounds: No murmur heard. Pulmonary: Effort: Pulmonary effort is normal. No respiratory distress. Breath sounds: Normal breath sounds. No wheezing or rhonchi. Skin: General: Skin is warm. Neurological: Mental Status: He is alert. Mental status is at baseline. Psychiatric: Mood and Affect: Mood normal. Results: Recent Results (from the past 18 weeks) TSH with Reflex to Free T4 Collection Time: 12/08/24 9:41 AM Result Value Ref Range TSH reflex Free T4 1.33 0.32 - 4.0 uIU/mL Hemoglobin A1c Collection Time: 12/08/24 9:41 AM Result Value Ref Range Hemoglobin A1c 6.3 (H) <6.0 % Estimated Average Glucose 134 mg/dL Comprehensive Metabolic Panel Collection Time: 12/08/24 9:41 AM Result Value Ref Range Sodium 139 135 - 145 mmol/L Potassium 3.7 3.3 - 5.1 mmol/L Chloride 106 96 - 108 mmol/L Carbon Dioxide 28 22 - 29 mmol/L Anion Gap 9 (L) 12 - 20 Urea Nitrogen (BUN) 13 9 - 16 mg/dL Creatinine, Serum 1.09 0.5 - 1.4 mg/dL Estimated Glomerular Filt Rate >60 Glucose 107 60 - 115 mg/dL Calcium 9.4 8.4 - 10.2 mg/dL Bilirubin, Total 0.5 0.0 - 1.0 mg/dL Aspartate Amino Transferase 48 (H) 5 - 37 U/L Alanine Aminotransferase 43 (H) 0 - 40 U/L Total Protein 7.9 6.5 - 8.0 g/dL Albumin Level 4.5 3.5 - 5.0 g/dL Alkaline Phosphatase 94 39 - 117 U/L Lipid Panel with Reflex to Direct LDL Collection Time: 12/08/24 9:41 AM Result Value Ref Range Triglycerides 93 <150 mg/dL Cholesterol 234 (H) <200 mg/dL LDL Cholesterol Calculated 168 (H) <100 mg/dL HDL Cholesterol 48 >40 mg/dL PSA, Screen Collection Time: 12/08/24 9:41 AM Result Value Ref Range PSA, Total 2.87 <0.05 - 4.0 ng/mL Testosterone, Total, males (Adult), IA Collection Time: 12/08/24 9:41 AM Result Value Ref Range Testosterone, Total 676 250 - 1100 ng/dL Chlamydia/N. Gonorrhoeae, PCR, Urine Collection Time: 12/08/24 9:41 AM Result Value Ref Range CT PCR, Urine NOT DETECTED Not Detect. NG PCR, Urine NOT DETECTED Not Detect. Hepatitis B surface antigen, EIA Collection Time: 12/08/24 9:41 AM Result Value Ref Range Hepatitis B Surface Ag Negative Negative Hepatitis C Antibody with Reflex to HCV, RNA, Quantitative, Real-Time PCR Collection Time: 12/08/24 9:41 AM Result Value Ref Range Hepatitis C Antibody Nonreactive Nonreactive HIV-1/2 Antigen and Antibodies, Fourth Generation, with Reflexes Collection Time: 12/08/24 9:41 AM Result Value Ref Range HIV AB/AG Nonreactive Nonreactive Syphilis Screen Collection Time: 12/08/24 9:41 AM Result Value Ref Range Syphilis Screen Nonreactive Nonreactive CBC auto differential Collection Time: 01/22/25 4:15 PM Result Value Ref Range White Blood Count 7.2 4.8 - 10.8 X10*3/uL Red Blood Count 4.71 4.60 - 5.80 X10*6/uL Hemoglobin 14.1 14.0 - 18.0 g/dl Hematocrit 41.3 (L) 42.0 - 52.0 % Mean Corpuscular Volume 87.7 80.0 - 98.0 fL Mean Corpuscular Hemoglobin 29.9 27.0 - 33.0 pg Mean Corpuscular HGB Conc 34.1 31.0 - 36.0 g/dl Red Cell Distribution Width 13.7 11.0 - 16.0 % Platelet Count 279 160 - 400 X10*3/uL Mean Platelet Volume 11.6 9.4 - 12.4 fL Neutrophils Percent Auto 51.0 45 - 73 % Imm Gran Pct Auto 0.1 0.0 - 0.4 % Lymphocytes Percent Auto 41.2 (H) 20 - 40 % Monocytes Percent Auto 5.6 2 - 11 % Eosinophils Percent Auto 1.3 0 - 4 % Basophils Percent Auto 0.8 0 - 2 % NRBC Pct Auto 0.0 0.0 - 0.2 /100WBC Neutrophils Absolute Auto 3.7 2.0 - 8.3 x10*3/uL Imm Gran Abs Auto 0.01 0.00 - 0.03 X10*3/uL Lymphocytes Absolute Auto 3.0 1.2 - 4.9 X10*3/uL Monocytes Absolute Auto 0.4 0.1 - 1.2 X10*3/uL Eosinophils Absolute Auto 0.1 0.0 - 0.4 X10*3/uL Basophils Absolute Auto 0.1 0.0 - 0.2 X10*3/uL NRBC Abs Auto 0.000 0.0 - 0.012 X10*3/uL Comprehensive Metabolic Panel Collection Time: 01/22/25 4:15 PM Result Value Ref Range Sodium 139 135 - 145 mmol/L Potassium 3.9 3.3 - 5.1 mmol/L Chloride 106 96 - 108 mmol/L Carbon Dioxide 25 22 - 29 mmol/L Anion Gap 12 12 - 20 Urea Nitrogen (BUN) 22 (H) 9 - 16 mg/dL Creatinine, Serum 1.18 0.5 - 1.4 mg/dL Estimated Glomerular Filt Rate >60 Glucose 72 60 - 115 mg/dL Calcium 10.0 8.4 - 10.2 mg/dL Bilirubin, Total 0.4 0.0 - 1.0 mg/dL Aspartate Amino Transferase 36 5 - 37 U/L Alanine Aminotransferase 32 0 - 40 U/L Total Protein 8.4 (H) 6.5 - 8.0 g/dL Albumin Level 4.7 3.5 - 5.0 g/dL Alkaline Phosphatase 98 39 - 117 U/L TSH with Reflex to Free T4 Collection Time: 01/22/25 4:15 PM Result Value Ref Range TSH reflex Free T4 0.87 0.32 - 4.0 uIU/mL Hemoglobin A1c Collection Time: 01/22/25 4:15 PM Result Value Ref Range Hemoglobin A1c 6.1 (H) <6.0 % Estimated Average Glucose 128 mg/dL POCT Rapid Strep A ROMERO ID NOW Collection Time: 03/11/25 1:32 PM Result Value Ref Range Rapid Strep A Screen Negative Negative, None Detected QC Media Lot # [id number] Lot# Expiration Date POCT Rapid Influenza A ROMERO ID NOW Collection Time: 03/11/25 1:41 PM Result Value Ref Range Influenza A Negative Negative, Indeterminate QC Media Lot # [id number] Lot# Expiration Date POCT Rapid Influenza B ROMERO ID NOW Collection Time: 03/11/25 1:41 PM Result Value Ref Range Influenza B Negative Negative, Indeterminate QC Media Lot # [id number] Lot# Expiration Date POCT Rapid Covid-19 BinaxNOW Collection Time: 03/11/25 1:42 PM Result Value Ref Range Rapid COVID Ag Negative QC Media Lot # [id number] Lot# Expiration Date ,677,111 Lab Results Component Value Date NA 139 01/22/2025 K 3.9 01/22/2025 CL 106 01/22/2025 CO2 25 01/22/2025 BUN 22 (H) 01/22/2025 CREATININE 1.18 01/22/2025 CRCLCALCPH 93.3 11/17/2024 EGFR >60 01/22/2025 GLUCOSE 72 01/22/2025 TOTALBILIRUB 0.4 01/22/2025 AST 36 01/22/2025 ALT 32 01/22/2025 TOTPROTEIN 8.4 (H) 01/22/2025 ALB 4.7 01/22/2025 ALP 98 01/22/2025 Lab Results Component Value Date TRIG 93 2024 CHOL 234 (H) 2024 LDLCHOLCAL 168 (H) 2024 HDL 48 2024 Lab Results Component Value Date HGBA1C 6.1 (H) 01/22/2025 Lab Results Component Value Date WBC 7.2 01/22/2025 HGB 14.1 01/22/2025 HCT 41.3 (L) 01/22/2025 PLT 279 01/22/2025 MCV 87.7 01/22/2025 The 10-year ASCVD risk score (Howie CASSIDY, et al., 2019) is: 2.7% Values used to calculate the score: Age: 44 years Clinically relevant sex: Male Is Non- : No Diabetic: No Tobacco smoker: No Systolic Blood Pressure: 130 mmHg Is BP treated: Yes HDL Cholesterol: 48 mg/dL Total Cholesterol: 234 mg/dL FIB-4 Calculation: 0.98 at 01/22/2025 4:15 PM Calculated from: SGOT/AST: 36 U/L at 01/22/2025 4:15 PM SGPT/ALT: 32 U/L at 01/22/2025 4:15 PM Platelets: 279 X10*3/uL at 01/22/2025 4:15 PM Age: 44 years Computed KFRE 2-Year unavailable. One or more values for this score either were not found within the given timeframe or did not fit some other criterion. Computed KFRE 5-Year unavailable. One or more values for this score either were not found within the given timeframe or did not fit some other criterion. Screenings: PHQ-2/9 Score: Patient Health Questionnaire-9 Score: 0 (01/05/2025 3:55 PM) Patient Health Questionnaire-2 Score: 0 (01/05/2025 3:55 PM) Thoughts that you would be better off or hurting yourself in some way: Not at all (01/05/2025 3:55 PM) TAO-7 Score: No data recorded Sleep disturbance and possible sleep apnea: - Suspected sleep apnea due to snoring and poor sleep quality. - Referral to sleep clinic for CPAP evaluation and demonstration. Referral to neurology department for sleep medicine consultation. Erectile dysfunction and medication side effects: - Erectile dysfunction not adequately managed with current Cialis regimen. Headaches possibly related to vasodilatory effects of Cialis and blood pressure changes. - Lowered dose of Cialis as requested. Discussed alternative medication (Viagra) with similar side effect profile. Urology follow-up appointment scheduled for April 2025. - Risks and side effects: Headaches associated with vasodilator therapy discussed. Headache and migraine: - Migraine diagnosis confirmed by neurology. Headaches described as pulsatile and associated with vascular changes. Ongoing symptoms despite current therapy. - Continued topiramate for migraine prophylaxis. Maxalt (rizatriptan) reserved for severe episodes.Referral to neurology for further evaluation. Ordered MRI to further investigate headache etiology. [place] on right pinky toe: - Persistent corn on right pinky toe. - Prescribed medicated cream for corn. Advised that insurance coverage may be limited. Recommended evaluation prior to further treatment. Blood pressure management: - Blood pressure noted to be mildly elevated. - Continued current antihypertensive regimen (hydrochlorothiazide, cetirizine as discussed). No adjustment to antihypertensive therapy at this time. Sinus congestion: - Sinus congestion present, not currently requiring medication. - No current treatment recommended. Cetirizine available for allergy management as needed. Influenza prevention: - Influenza vaccination recommended due to household exposure risk. - Recommended influenza vaccination. Patient elected to receive flu shot at [facility]. Assessment/Plan Problem List Items Addressed This Visit Mixed anxiety and depressive disorder - continue sertraline Obesity Posttraumatic stress disorder -[facility]. -Hx psychiatric hospitalization -receiving CBT. -continue current medication. Allergic rhinitis - restart cetirizine, take daily or more frequently during allergy season - if his current symptoms do not improve or worsen, call to assess antibiotic treatment needs Migraine - presented to [facility] in Mar 2024, severe left sided SULLIVAN and paresthesia, requiring hospitalization. - head CT normal - evaluated by neurologist. Dx migraine with aura. Rx topiramate. Hypertension - Primary -Goal BP < 130/80 per ACC/AHA guideline [...] 3-6 mo, sooner if any problem arises CARLOS (obstructive sleep apnea) - Sleep study on 11/23/2024: Severe CARLOS with AHI 43. Mild nocturnal hypoxemia with average oxygen saturation 94% and O2 sats below 88% for 12 minutes. - Recommended to start CPAP therapy with AutoPAP mode and pressure setting of 6 to 20 cm H2O, usingthe appropriate interface. - Patient would like to see more comfortable mask options; will refer to sleep medicine clinic. Relevant Orders Referral to Sleep Medicine Erectile dysfunction - Total testosterone level 676; PSA 2.87 - tadalafil 20 mg prn - upcoming appointment with urologist Prediabetes Callus of toe - painful - wear comfortable shoes - urea cream or ceramide cream Relevant Medications Salicylic Acid 40 % pads Urea 45 % cream Allergies[2] Current Outpatient Medications Medication Instructions cetirizine (ZYRTEC) 10 mg, Oral, Once Daily COVID-19 At Home Antigen Test (QuickVue At-Home Covid-19 Test) kit Use as directed hydroCHLOROthiazide 12.5 mg, Oral, Daily hydrOXYzine HCl (Atarax) 25 MG tablet TAKE ONE (1) TABLET BY MOUTH DAILY NEEDED FOR ANXIETY ibuprofen 600 mg, Oral, Every 6 hours PRN ipratropium (Atrovent) 0.03 % nasal spray 1 spray, Each Nostril, Every 12 hours lisinopril 20 MG tablet TAKE 1 TABLET BY MOUTH EVERY DAY rizatriptan (MAXALT) 10 mg, Oral, Once as needed, May repeat in 2 hours if unresolved. Do not exceed 30 mg in 24 hours. Salicylic Acid 40 % pads Apply to affected area every 48 hours for 14 days sertraline (ZOLOFT) 100 mg, Daily tadalafil (Cialis) 20 MG tablet Take 1 tablet as a single dose 30 minutes prior to anticipated sexual activity; do not take more than once per day. Maximum 15 tabs per month. topiramate (TOPAMAX) 25 mg, Oral, Nightly Urea 45 % cream Apply to affected are once or twice daily Follow-up: 3 mo or sooner if any problem arises. This note was drafted using Ambient (AI) technology. The patient/patient's guardian has been informed and has consented to the use of this technology [1] Patient Active Problem List Diagnosis Mixed anxiety and depressive disorder History of alcohol use Obesity Posttraumatic stress disorder Radial styloid tenosynovitis (de quervain) Right wrist pain Right elbow pain Alcohol use disorder, in sustained remission Allergic rhinitis Chronic low back pain Migraine Precordial chest pain Paresthesia of left arm and leg Migraine aura occurring with and without headache Migraine equivalent syndrome Hypertension De Quervain's disease (radial styloid tenosynovitis) Tendinitis of right triceps CARLOS (obstructive sleep apnea) Erectile dysfunction Metabolic dysfunction-associated steatotic liver disease (MASLD) Prediabetes Callus of toe [2] No Known Allergies documented in this encounter Miscellaneous Notes * Assessment & Plan Note - Eneida Alonzo MD - 04/11/2025 6:26 AM ESTAssociated Problem(s): Callus of toe - painful - wear comfortable shoes - urea cream or ceramide cream * Assessment & Plan Note - Eneida Alonzo MD - 04/11/2025 6:24 AM ESTAssociated Problem(s): Migraine - presented to [facility] in Mar 2024, severe left sided SULLIVAN and paresthesia, requiring hospitalization. - head CT normal - evaluated by neurologist. Dx migraine with aura. Rx topiramate. * Assessment & Plan Note - Eneida Alonzo MD - 04/11/2025 6:23 AM ESTAssociated Problem(s): Mixed anxiety and depressive disorder - continue sertraline * Assessment & Plan Note - Eneida Alonzo MD - 04/11/2025 6:23 AM ESTAssociated Problem(s): Posttraumatic stress disorder -[facility] and [facility]. -Hx psychiatric hospitalization -receiving CBT. -continue current medication. * Assessment & Plan Note - Eneida Alonzo MD - 04/11/2025 6:23 AM ESTAssociated Problem(s): Erectile dysfunction - Total testosterone level 676; PSA 2.87 - tadalafil 20 mg prn - upcoming appointment with urologist * Assessment & Plan Note - Eneida Alonzo MD - 04/11/2025 6:22 AM ESTAssociated Problem(s): Allergic rhinitis - restart cetirizine, take daily or more frequently during allergy season - if his current symptoms do not improve or worsen, call to assess antibiotic treatment needs * Assessment & Plan Note - Eneida Alonzo MD - 04/11/2025 6:21 AM ESTAssociated Problem(s): Hypertension -Goal BP < 130/80 per ACC/AHA guideline [...] 3-6 mo, sooner if any problem arises * Assessment & Plan Note - Eneida Alonzo MD - 04/11/2025 6:14 AM ESTAssociated Problem(s): CARLOS (obstructive sleep apnea) - Sleep study on 11/23/2024: Severe CARLOS with AHI 43. Mild nocturnal hypoxemia with average oxygen saturation 94% and O2 sats below 88% for 12 minutes. - Recommended to start CPAP therapy with AutoPAP mode and pressure setting of 6 to 20 cm H2O, usingthe appropriate interface. - Patient would like to see more comfortable mask options; will refer to sleep medicine clinic. documented in this encounter Plan of Treatment Scheduled Referrals Name Type Priority Associated Diagnoses Orde r Schedule Referral to Sleep Medicine Outpatient Referral Urgent CARLOS (obstructive sleep apnea) Expected: 04/11/2025 (Approximate), Expires: 04/11/2026 documented as of this encounter Visit Diagnoses Diagnosis Hypertension, unspecified type- Primary Allergic rhinitis, unspecified seasonality, unspecified trigger Prediabetes Other abnormal glucose Class 2 obesity due to excess calories without serious comorbidity with body mass index (BMI) of 35.0 to 35.9 in adult Erectile dysfunction, unspecified erectile dysfunction type Posttraumatic stress disorder Mixed anxiety and depressive disorder Dysthymic disorder CARLOS (obstructive sleep apnea) Obstructive sleep apnea (adult) (pediatric) Migraine without status migrainosus, not intractable, unspecified migraine type Callus of toe documented in this encounter Additional Health Concerns Assessment Noted Time PHQ-9 Depression Total Score: 0 01/06/20 25 3:55 PM EDT documented as of this encounter Care Teams Local Company Truck Driver Relationship Specialty Start Date End Date Eneida Alonzo MD [address] [place] [address] PCP - General Family Medicine 12/08/18 documented as of this encounter
--- NOTE | 2025-04-13 13:15 | MHC.OFFVIS ---
Intake Visit Reasons: Erectile Dysfunction(UA SET) Intake Note: New Patient is present for erectile dysfunction Urology Rx:none NKDA Blood Thinners:none Imaging completed:none Labs done 12/08/24 PSA 2.87, Total Testosterone 676 Day Care Aide Required: No Accompanied by: Self / Same As Patient Allergies No Known Allergies (No Known Allergies*) Allergy (Verified 04/13/25 13:17) HPI Comments Details: Norbert is a pleasant male. He is a patient of Dr. Alonzo. He is seen for the following urologic conditions - erectile dysfunction Laboratory readings consistent with metabolic syndrome Associated conditions including sleep apnea not using CPAP Discussed weight management with high-fiber low calorie Needs to start CPAP Start daily tadalafil 5mg Erectile dysfunction Laboratory - 12/04 T 676, PSA 2.9, HbA1c 6.1 PFSH Medical History Morbid obesity Essential hypertension Surgical History (Updated 09/27/20 @ 14:33 by MERLYN Moore) No pertinent past surgical history Family History (Updated 09/27/20 @ 14:32 by MERLYN Moore) Father Heart disease Diabetes Paternal Aunt Heart disease Mother Family history of cancer HTN (hypertension) Social History (Updated 11/02/22 @ 08:29 by Dania Sandoval) Alcohol intake: former Patient Tobacco Use Status: Former Tobacco user Current occupational status: unemployed Current occupation: right hand dominant Review of Systems Const Denies chills and Denies fever(s) Card Reports no additional complaints and Denies syncope Resp Denies cough GI Denies abdominal pain and Denies heartburn Reports as per HPI and Denies change in libido Neuro Denies syncope Psych Denies change in libido Endo Denies change in libido Physical Exam Const General: cooperative, healthy appearing, comfortable and no acute distress Orientation/consciousness: patient oriented x3 HEENT Face and sinus: Yes normal facial exam Mouth: moist mucous membranes Neck Neck: Yes normal visual inspection, Yes full ROM and Yes trachea midline Chest Chest palpation & inspection: normal inspection of the chest Resp Effort & Inspection: normal respiratory effort, able to speak in complete sentences and no respiratory distress GI Inspection: Yes normal to inspection Back/Spine/Pelvis Cervical Spine: normal cervical lordosis Thoracic/Lumbar Spine: thoracic and lumbar spine normal to inspection Skin General skin exam: no rashes or lesions noted Neuro General: patient oriented x3, gait normal, tone normal and moves all extremities Extrem General: Yes normal to inspection and Yes capillary refill normal Results AMB Urinalysis, Automated UA Leukoctes 0 Sherrie/uL Last Edit by Ita [facility]ino [facility] on 04/13/25 13:24 UA Nitrite Negative Last Edit by Ita [facility]ino [facility] on 04/13/25 13:24 UA Urobilinogen 0.2 mg/dL Last Edit by Ita [facility]ino [facility] on 04/13/25 13:24 UA Protein 0 mg/dL Last Edit by Ita Chino, [facility] on 04/13/25 13:24 UA pH 7.0 Last Edit by Ita [facility]ino [facility] on 04/13/25 13:24 UA Blood 0 Rocael/uL Last Edit by Ita [facility]ino [facility] on 04/13/25 13:24 UA Specific Medanales 1.015 Last Edit by Ita [facility]ino [facility] on 04/13/25 13:24 UA Ketone Negative Last Edit by Ita [facility]ino [facility] on 04/13/25 13:24 UA Bilirubin 0 mg/dL Last Edit by Ita [facility]ino [facility] on 04/13/25 13:24 UA Glucose 0 mg/dL Last Edit by Ita [facility]ino [facility] on 04/13/25 13:24 Results Reviewed Results Reviewed: Laboratory Last Values Urine pH (Auto) 7.0 04/13/25 13:20 Specific Medanales (Auto) 1.015 04/13/25 13:20 Urine Protein (Auto) 0 mg/dL 04/13/25 13:20 Glucose (UA)(Auto) 0 mg/dL 04/13/25 13:20 Urine Ketones (Auto) Negative 04/13/25 13:20 Urine Blood (Auto) 0 Rocael/uL 04/13/25 13:20 Urine Nitrite (Auto) Negative 04/13/25 13:20 Urine Bilirubin (Auto) 0 mg/dL 04/13/25 13:20 Urine Urobilinogen (Auto) 0.2 mg/dL 04/13/25 13:20 Leukocyte Esterase (Auto) 0 Sherrie/uL 04/13/25 13:20 Assessment & Plan Assessment & Plan (1) Erectile dysfunction associated with type 2 diabetes mellitus: Code(s): E11.69 - Type 2 diabetes mellitus with other specified complication; N52.1 - Erectile dysfunction due to diseases classified elsewhere Category: Medical Plan Initiate tadalafil therapy Orders: Orders AMB Urinalysis Automated Today N52.9 - Male erectile dysfunction, unspecified Medications: New tadalafil [id number] [facility] [id number] Member [id number] 5 mg PO DAILY 90 tabs 0RF sexual activity 90 days E11.69 - Type 2 diabetes mellitus with other specified complication, N52.1 - Erectile dysfunction due to diseases classified elsewhere Patient Instructions: This note is constructed using voice recognition software. While every effort has been made to ensure accuracy aerial planting and cultivation manager errors may have been included. Imaging studies, laboratory and physical exam results were discussed and reviewed in detail. No major barriers to patient understanding were identified. An opportunity to ask questions regarding the treatment plan was provided. All questions were answered. The patient expressed understanding and agreement with the above treatment plan. The patient is aware they should contact our office by phone for worsening of their current condition or the appearance of new urologic symptoms. Compliance is encouraged with any medications and followup testing that is ordered. It is a privilege to participate in the urologic care of your patient. If you have any questions or concerns regarding treatment for the above conditions, or other urologic issues, please do not hesitate to contact me. The office telephone contact is [phone]. Sincerely, Dr Norman Collins MD, [facility] - Urology Compassionate Specialist Care for the Genitourinary System Coding Level of Care Code New Pt Level 4 (46028) Diagnoses Erectile dysfunction associated with type 2 diabetes mellitus E11.69; N52.1
--- OUTSIDE RECORDS SUMMARY | 2025-04-13 15:10 | XMS_ITS | Encounter Summary ---
Author Organization [employer] Address [address] [facility] 7t [place] [address] Care Team Providers Care Match Up Person Name Role Phone Eneida Alonzo MD Primary Care Provider [phone] Reason for Visit * Reason Comments Med Change Request Encounter Details Date Type Department Care Team ([facility] Contact Info) Description 04/06/[address] [facility] MEDICINE [address] [place], [place] [phone] Eneida Alonzo MD [address] [place] [address] Social History Tobacco Use Types Packs/Day Years Used Date Smoking Tobacco: Never Passive Smoke Exposure: Never Smokeless Tobacco: Never Alcohol Answer Date Recorded How often do [...] as of this encounter Plan of Treatment Not on file documented as of this encounter Visit Diagnoses Not on filedocumented in this encounter Additional Health Concerns Assessment Noted Time PHQ-9 Depression Total Score: 0 01/06/20 25 3:55 PM EDT documented as of this encounter Care Teams Match Up Person Relationship Specialty Start Date End Date Eneida Alonzo MD [address] [place] [address] PCP - General Family Medicine 12/08/18 documented as of this encounter
--- OUTSIDE RECORDS SUMMARY | 2025-04-13 15:10 | XMS_ITS | Encounter Summary ---
Author Organization [employer] Address [address] [place] [address] [address] [place] [address] Care Team Providers Care Family Law Mediator Name Role Phone Eneida Alonzo MD Primary Care Provider [phone] Reason for Visit * Reason Comments Med Refill Encounter Details Date Type Department Care Team (Late st Contact Info) Description 08/13/2022 Refill [facility] MEDICINE [address] [place] [address] Eneida Alonzo MD [address] [place] [address] Social History Tobacco Use Types Packs/Day Years [...] on filedocumented in this encounter Care Teams Family Law Mediator Relationship Specialty Start Date End Date Eneida Alonzo MD [address] [place] [address] PCP - General Family Medicine 12/08/18 documented as of this encounter
--- OUTSIDE RECORDS SUMMARY | 2025-04-13 15:10 | XMS_ITS | Encounter Summary ---
Author Organization [employer] Address [address] [facility] 7t [place] [address] Care Team Providers Care Glassware Verifier Name Role Phone Eneida Alonzo MD Primary Care Provider [phone] Encounter Details Date Type Department Care Team ([facility] st Contact Info) Description 11/12/2023 Orders Only [facility] MEDICINE [address] [place], [place] [phone] Eneida Alonzo MD [address] [place], [place] [phone] Sleep disturbance (Primary Dx); Witnessed episode of [...] on file documented as of this encounter Procedures Procedure [...] PM EST) Influenza A PCR NEGATIVE Negative [facility] Influenza B PCR NEGATIVE Negative [facility] Resp Syncy Virus RNA Qual PCR NEGATIVE Negative [facility] SARS COV2 PCR NEGATIVE Negative [facility] Comment:All test results mus t [...] use by authorized laboratories.Testing performed on the EXO5 GeneXpert utilizingreal-time RT-PCR.All SARS CoV2 and positive influenza A/B results arereported to [facility]. 03/28/2024 7:28 PM EST 03/28/2024 7:46 PM EST [employer] External Data Provider LAB MICROBIOLOGY - GENERAL ORDERABLES Final Result Performing Organization Address [facility] de Phone Number [facility] [address] [place] [phone] * High Sensitivity Troponin I (03/28/2024 7:28 PM EST) [facility] TROPONIN I HIGH SENSITIVITY <2.7 <3.5 - 35.0 ng/L [facility] Comment:The Rayo high sens itivity Troponin-I results should beused in conjunction with other diagnostic information suchas ECG, clinical observations and information, and patientsymptoms to aid in the diagnosis of NE. 03/28/2024 7:28 PM EST 03/28/2024 7:46 PM EST [employer] External Data Provider LAB BLOOD ORDERAB LES Final Result Performing Organization Address [facility] de Phone Number [facility] [address] [place] [phone] * B Type Natriuretic Peptide (BNP) (03/28/2024 7:28 PM EST) [facility] B Type Natriuretic Peptide 25 <100 pg/mL [facility] Comment:For those patients w ho are being treated with Natrecor(nesiritide, recombinant BNP), BNP testing should beperformed at least two hours post treatment in order toensure that only endogenous levels of BNP are detected. 03/28/2024 7:28 PM EST 03/28/2024 7:46 PM EST us Generic External Data Provider LAB BLOOD ORDERAB LES Final Result Performing Organization Address City/[facility]/ZIP Co de Phone Number [facility] [address] [place] [phone] * Magnesium (03/28/2024 7:28 PM EST) Magnesium 2.1 1.6 - 2.6 mg/dL [facility] 03/28/2024 7:28 PM EST 03/28/2024 7:46 PM EST us Generic External Data Provider LAB BLOOD ORDERAB LES Final Result Performing Organization Address [facility] Co de Phone Number [facility] [address] [place] [phone] * Basic Metabolic Panel (03/28/2024 7:28 PM EST) Sodium 139 135 - 145 mmol/L [facility] Potassium 4.0 3.3 - 5.1 mmol/L [facility] Chloride 104 96 - 108 mmol/L [facility] Carbon Dioxide 25 22 - 29 mmol/L [facility] Anion Gap 14 12 - 20 [facility] Urea Nitrogen (BUN) 16 9 - 16 mg/dL [facility] Creatinine, Serum 0.94 0.5 - 1.4 mg/dL [facility] Creatinine Clr Calc Pharmacy 130.6 [facility] Comment:eGFR (calculated fro m the MDRD study equation) and eCrCl(calculated from the Cockcroft-Gault equation) are based ondifferent parameters and may not yield comparable results.If eCrCl result is absurd, please check patient'sheight/weight. Estimated Glomerular Filt Rate >60 [facility] Comment:Chronic Kidney Disea se: Estimated GFR < 60 mL/min/1.86l5Iccpfq Kidney Disease: Estimated GFR < 15 mL/min/1.73m2 Glucose 93 60 - 115 mg/dL [facility] Calcium 9.3 8.4 - 10.2 mg/dL [facility] 03/28/2024 7:28 PM EST 03/28/2024 7:46 PM EST Generic External Data Provider LAB BLOOD ORDERAB LES Final Result Performing Organization Address City/[facility] Co de Phone Number [facility] [address] [place] [phone] * (ABNORMAL) Hepatic Function Panel (03/28/2024 7:28 PM EST) Bilirubin, Total 0.5 0.0 - 1.0 mg/dL [facility] Bilirubin, Direct 0.2 0.0 - 0.5 mg/dL [facility] Aspartate Amino Transferase 49(H) 5 - 37 U/L [facility] Alanine Aminotransferase 49(H) 0 - 40 U/L [facility] Total Protein 8.0 6.5 - 8.0 g/dL [facility] Albumin Level 4.3 3.5 - 5.0 g/dL [facility] Alkaline Phosphatase 90 39 - 117 U/L [facility] 03/28/2024 7:28 PM EST 03/28/2024 7:46 PM EST Generic External Data Provider LAB BLOOD ORDERAB LES Final Result Performing Organization Address City/[facility] Co de Phone Number [facility] [address] [place] [phone] * Prothrombin Time-INR (03/28/2024 7:28 PM EST) Prothrombin Time 11.8 10.9 - 12.4 SEC [facility] INTERNATIONAL NORM RATIO 1.0 0.9 - 1.1 [facility] Comment:INTERNATIONAL NORMAL IZED RATIO (INR) REFERENCE [...] Provider LAB BLOOD ORDERAB LES Final Result [facility] [address] [place], [place] [phone] * (ABNORMAL) CBC auto differential (03/28/2024 7:28 PM EST) White Blood Count 7.2 4.8 - 10.8 X10*3/uL [facility] Red Blood Count 4.81 4.60 - 5.80 X10*6/uL [facility] Hemoglobin 14.4 14.0 - 18.0 g/dl [facility] Hematocrit 41.6(L) 42.0 - 52.0 % [facility] Mean Corpuscular Volume 86.5 80.0 - 98.0 fL [facility] Mean Corpuscular Hemoglobin 29.9 27.0 - 33.0 pg [facility] Mean Corpuscular HGB Conc 34.6 31.0 - 36.0 g/dl [facility] Red Cell Distribution Width 13.2 11.0 - 16.0 % [facility] Platelet Count 257 160 - 400 X10*3/uL [facility] Mean Platelet Volume 10.7 9.4 - 12.4 fL [facility] Neutrophils Percent Auto 51.9 45 - 73 % [facility] Imm Gran Pct Auto 0.1 0.0 - 0.4 % [facility] Lymphocytes Percent Auto 39.6 20 - 40 % [facility] Monocytes Percent Auto 6.1 2 - 11 % [facility] Eosinophils Percent Auto 1.7 0 - 4 % [facility] Basophils Percent Auto 0.6 0 - 2 % [facility] NRBC Pct Auto 0.0 0.0 - 0.2 /100WBC [facility] Neutrophils Absolute Auto 3.7 2.0 - 8.3 x10*3/uL [facility] Imm Gran Abs Auto 0.01 0.00 - 0.03 X10*3/uL [facility] Lymphocytes Absolute Auto 2.9 1.2 - 4.9 X10*3/uL [facility] Monocytes Absolute Auto 0.4 0.1 - 1.2 X10*3/uL [facility] Eosinophils Absolute Auto 0.1 0.0 - 0.4 X10*3/uL [facility] Basophils Absolute Auto 0.0 0.0 - 0.2 X10*3/uL [facility] NRBC Abs Auto 0.000 0.0 - 0.012 X10*3/uL [facility] 03/28/2024 7:28 PM EST 03/28/2024 7:46 PM EST us Generic External Data Provider LAB BLOOD ORDERAB LES Final Result Performing Organization Address City/State/[facility] Co de Phone Number [facility] [address] [place] [phone] documented in this encounter Visit Diagnoses Diagnosis Sleep disturbance- Primary Unspecified sleep disturbance Witnessed episode of apnea documented in this encounter Care Teams Glassware Verifier Relationship Specialty Start Date End Date Eneida Alonzo MD [address] [place] [phone] PCP - General Family Medicine 12/08/18 documented as of this encounter
--- OUTSIDE RECORDS SUMMARY | 2025-04-13 15:10 | XMS_ITS | Encounter Summary ---
Author Organization [employer] Address [address] [facility] 7t [place] [address] Care Team Providers Care Customer Service Cashier Name Role Phone Eneida Alonzo MD Primary Care Provider [phone] Reason for Visit * Reason Onset Date Comments PAR unable to run DD of [place] 02/19/2025 Encounter Details Date Type Department Care Team ([facility] st Contact Info) Description 02/19/2025 Telephone [facility] [address] [place] [address] Aminta Smith, DDS [address] [place] [address] PAR unable to run DD of [place] Social History Tobacco Use Types Packs/Day Years [...] * Telephone Encounter - Salma Wang - 02/19/2025 10:33 AM EDT PAR unable to run DD of KRISTI on PAR side. Reached out to front desk auxiliary dental and front desk auxiliary will run and post DR documented in this encounter Plan of Treatment Not on file documented as of this encounter Visit Diagnoses Not on filedocumented in this encounter Additional Health Concerns Assessment Noted Time PHQ-9 Depression Total Score: 0 01/06/20 25 3:55 PM EDT documented as of this encounter Care Teams Customer Service Cashier Relationship Specialty Start Date End Date Eneida Alonzo MD [address] [place] [phone] PCP - General Family Medicine 12/08/18 documented as of this encounter
--- OUTSIDE RECORDS SUMMARY | 2025-04-13 15:10 | XMS_ITS | Encounter Summary ---
Author Organization [employer] Address [address] [place] [address] 7 [place] [address] Care Team Providers Care Gaming Surveillance Observer Name Role Phone Eneida Alonzo MD Primary Care Provider [phone] Reason for Visit * Reason Comments Med Refill Encounter Details Date Type Department Care Team (Late st Contact Info) Description 11/14/2022 Refill [facility] MEDICINE [address] [place], [place] [phone] Eneida Alonzo MD [address] [place] [address] Primary hypertension Social History Tobacco Use Types [...] hypertension documented in this encounter Care Teams Gaming Surveillance Observer Relationship Specialty Start Date End Date Eneida Alonzo MD [address] [place], [place] [phone] PCP - General Family Medicine 12/08/18 documented as of this encounter
--- OUTSIDE RECORDS SUMMARY | 2025-04-13 15:10 | XMS_ITS | Encounter Summary ---
Author Organization [employer] Address [address] [facility] [address] [place] [address] Care Team Providers Care Erp Technical Lead Name Role Phone Eneida Alonzo MD Primary Care Provider [phone] Encounter Details Date Type Department Care Team ([facility] st Contact Info) Description 12/07/2024 Orders Only [facility] MEDICINE [address] [place], [place] [phone] Eneida Alonzo MD [address] [place], [place] [phone] Primary hypertension (Primary Dx); Erectile dysfunction, unspecified [...] 9:41 AM EDT) Syphilis Screen Nonreactive Nonreactive [facility] Blood Venous blood specimen / Unknown 2024 9:41 AM EDT 2024 11:17 AM EDT us Eneida Alonzo MD LAB BLOOD ORDERABLES Final Resul t [facility] [address] [place] [phone] * HIV-1/2 Antigen and Antibodies, Fourth Generation, with Reflexes (2024 9:41 AM EDT) HIV AB/AG Nonreactive Nonreactive [facility] Comment:HIV-1 p24 Ag and/or HIV-1/HIV-2 Ab not detected.A test result that is nonreactive does not exclude thepossibility of exposure to or infection with HIV-1 and/orHIV-2. Nonreactive results in this assay for individualswith prior exposure to HIV-1 and/or HIV-2 may be due toantigen and antibody levels that are below the limit ofdetection of this assay.The [employer] HIV Ag/Ab Combo assay result andsupplemental assay results should be interpreted inconjunction with the patient's clinical presentation,history and other laboratory results. If the results areinconsistent with clinical evidence, additional testing issuggested to confirm the result. Blood Venous blood specimen / Unknown 2024 9:41 AM EDT 2024 11:17 AM EDT us Eneida Alonzo MD LAB BLOOD ORDERABLES Final Resul t Performing Organization Address [facility] Co de Phone Number [facility] [address] [place] [phone] * Hepatitis C Antibody with Reflex to HCV, RNA, Quantitative, Real-Time PCR (2024 9:41 AM EDT) [facility] Hepatitis C Antibody Nonreactive Nonreactive [facility] Comment:Antibodies to HCV no t detected; does not exclude early acuteHCV infection. Blood Venous blood specimen / Unknown 2024 9:41 AM EDT 2024 11:17 AM EDT us Eneida Alonzo MD LAB BLOOD ORDERABLES Final Resul t Performing Organization Address [facility] Co de Phone Number [facility] [address] [place] [phone] * Hepatitis B surface antigen, EIA (2024 9:41 AM EDT) [facility] Hepatitis B Surface Ag Negative Negative [facility] Blood Venous blood specimen / Unknown 2024 9:41 AM EDT 2024 11:17 AM EDT Eneida Alonzo MD LAB BLOOD ORDERABLES Final Resul t Performing Organization Address City/[facility] Co de Phone Number [facility] [address] [place] [phone] * Chlamydia/N. Gonorrhoeae, PCR, Urine (2024 9:41 AM EDT) [facility] CT PCR, Urine NOT DETECTED Not Detect. [facility] Comment:A not detected test result does [...] NG PCR, Urine NOT DETECTED Not Detect. [facility] Comment:A not detected test result does [...] MD LAB URINE ORDERABLES Final Resul t [facility] [address] [place] [phone] * Testosterone, Total, males (Adult), IA (2024 9:41 AM EDT) Testosterone, Total 676 250 - 1100 ng/dL [facility] Comment:For additional infor matfidencio, please refer [email or web address].[email or web address]/faq/[email or web address](This link is being provided for informational/educational purposes only.)This test was developed and its analytical performancecharacteristics have been determined by [employer] [place], [place]. It hasnot been cleared or approved by the U.S. Food and DrugAdministration. This assay has been validated pursuantto the CLIA regulations and is used for clinicalpurposes.THIS TEST WAS PERFORMED AT:[employer] [place] [id number] ADAMES MD,PHD Blood Venous blood specimen / Unknown 2024 9:41 AM EDT 2024 11:06 AM EDT Eneida Alonzo MD LAB BLOOD ORDERABLES Final Resul t Performing Organization Address City/[facility]/ZIP Co de Phone Number [facility] [address] [place] [phone] * PSA, Screen (2024 9:41 AM EDT) PSA, Total 2.87 <0.05 - 4.0 ng/mL [facility] Comment:PSA methodology: Abb ct Alinity i ChemiluminescentMicroparticle Immunoassay (CMIA) Blood Venous blood specimen / Unknown 2024 9:41 AM EDT 2024 11:17 AM EDT us Eneida Alonzo MD LAB BLOOD ORDERABLES Final Resul t Performing Organization Address City/[facility]/ZIP Co de Phone Number [facility] [address] [place] [phone] * (ABNORMAL) Lipid Panel with Reflex to Direct LDL (2024 9:41 AM EDT) Triglycerides 93 <150 mg/dL [facility] Comment:Desirable Triglyceri de: less than 150 mg/dLBorderline High Triglyceride 150-199 mg/dLHigh Triglyceride: 200-499 mg/dLVery High Triglyceride: greater than or equal to 5OO mg/dL Cholesterol 234(H) <200 mg/dL [facility] Comment:Desirable Cholestero l: less than 200 mg/dLBorderline High Cholesterol: 200-239 mg/dLHigh Cholesterol: greater than 239 mg/dL LDL Cholesterol Calculated 168(H) <100 mg/dL [facility] Comment:Desirable LDL: less than 100 mg/dLNear Optimal/Above Optimal LDL: 110- 129 mg/dLBorderline High LDL: 130-159 mg/dLHigh LDL: 160-189 mg/dLVery High LDL: greater than or equal to 190 mg/dL HDL Cholesterol 48 >40 mg/dL [facility] Comment:Desirable HDL: great er than 40 mg/dL Note: This HDL assay may give artificially low results in patients with liver disease. Blood 2024 9:41 AM EDT 2024 11:17 AM EDT us Eneida Alonzo MD LAB BLOOD ORDERABLES Final Resul t [facility] [address] [place] [phone] * (ABNORMAL) Comprehensive Metabolic Panel (2024 9:41 AM EDT) Sodium 139 135 - 145 mmol/L [facility] Potassium 3.7 3.3 - 5.1 mmol/L [facility] Chloride 106 96 - 108 mmol/L [facility] Carbon Dioxide 28 22 - 29 mmol/L [facility] Anion Gap 9(L) 12 - 20 [facility] Urea Nitrogen (BUN) 13 9 - 16 mg/dL [facility] Creatinine, Serum 1.09 0.5 - 1.4 mg/dL [facility] Estimated Glomerular Filt Rate >60 [facility] Comment:Chronic Kidney Disea se: Estimated GFR < 60 mL/min/1.50l6Siejbo Kidney Disease: Estimated GFR < 15 mL/min/1.73m2 Glucose 107 60 - 115 mg/dL [facility] Calcium 9.4 8.4 - 10.2 mg/dL [facility] Bilirubin, Total 0.5 0.0 - 1.0 mg/dL [facility] Aspartate Amino Transferase 48(H) 5 - 37 U/L [facility] Alanine Aminotransferase 43(H) 0 - 40 U/L [facility] Total Protein 7.9 6.5 - 8.0 g/dL [facility] Albumin Level 4.5 3.5 - 5.0 g/dL [facility] Alkaline Phosphatase 94 39 - 117 U/L [facility] Blood Venous blood specimen / Unknown 2024 9:41 AM EDT 2024 11:17 AM EDT us Eneida Alonzo MD LAB BLOOD ORDERABLES Final Resul t Performing Organization Address [facility] de Phone Number [facility] [address] [place] [phone] * (ABNORMAL) Hemoglobin A1c (2024 9:41 AM EDT) Hemoglobin A1c 6.3(H) <6.0 % [facility] Comment:Hemoglobin A1C Refer ence Range Adults: 4.8 - 6.0 % Non diabetic: < 6.0 % Goal: < 7.0 %Additional Action Suggested: > 8.0 %Note: Hemoglobin A1c results are invalid for patients with abnormal amounts of HbF. Blood transfusions may impact the HbA1c concentration in the patient sample. Estimated Average Glucose 134 mg/dL [facility] Comment:eAG = Estimated ave rage glucose which is %A1C expressed asaverage glucose, using the formula of the F6D-QkxnlrqHpoekqo Glucose study (ADAG), Diabetes Care, Vol.31,#8,Dec. 2007 Blood Venous blood specimen / Unknown 2024 9:41 AM EDT 2024 11:06 AM EDT us Eneida Alonzo MD LAB BLOOD ORDERABLES Final Resul t Performing Organization Address [facility] Co de Phone Number [facility] [address] [place] [phone] * TSH with Reflex to Free T4 (2024 9:41 AM EDT) TSH reflex Free T4 1.33 0.32 - 4.0 uIU/mL [facility] Blood 2024 9:41 AM EDT 2024 11:17 AM EDT us Eneida Alonzo MD LAB BLOOD ORDERABLES Final Resul t [facility] [address] [place] [phone] documented in this encounter Visit Diagnoses Diagnosis Primary hypertension- Primary Unspecified essential hypertension Erectile dysfunction, unspecified erectile dysfunction type Lower urinary tract symptoms Other symptoms involving urinary system Screening for lipid disorders Screening for diabetes mellitus Routine screening for STI (sexually transmitted infection) Screening examination for venereal disease documented in this encounter Care Teams Erp Technical Lead Relationship Specialty Start Date End Date Eneida Alonzo MD [address] [place] [phone] PCP - General Family Medicine 12/08/18 documented as of this encounter
--- OUTSIDE RECORDS SUMMARY | 2025-04-13 15:10 | XMS_ITS | Clinical Summary ---
Author Organization [employer] Address [address] [facility] [address] [place] [address] Care Team Providers Care Spooler Name Role Phone Dayron Alonzo MD Primary Care Provider [phone] Allergies No known active allergies Medications hydrOXYzine HCl (Atarax) 25 MG tablet TAKE ONE (1) TABLET BY MOUTH DAILY NEEDED FOR ANXIETY 2 Active sertraline (Zoloft) 100 MG tablet Take 100 mg by mouth in the morning. 2 Active COVID-19 At Home Antigen Test (QuickVue At-Home Covid-19 Test) kitIndications:F ever, unspecified fever cause Use as directed 2 kit 3 3 Active cetirizine (ZyrTEC) 10 MG tablet Take 1 tablet (10 mg) by mouth Once daily. 90 tablet 3 4 Active rizatriptan (Maxalt) 10 MG tablet Take 1 tablet (10 mg) by mouth 1 (one) time if needed for migraine. May repeat in 2 hours if unresolved. Do not exceed 30 mg in 24 hours. 9 tablet 5 Active ibuprofen 600 MG tablet Take 1 tablet (600 mg) by mouth every 6 (six) hours if needed for mild pain for up to 20 doses. 20 tablet 5 Active tadalafil (Cialis) 20 MG tablet Take 1 tablet as a single dose 30 minutes prior to anticipated sexual activity; do not take more than once per day. Maximum 15 tabs per month. 15 tablet 3 5 Active topiramate (Topamax) 25 MG tabletIndication s:Nonintractable headache, unspecified chronicity pattern, unspecified headache type TAKE 1 TABLET BY MOUTH EVERY NIGHT AT BEDTIME. 90 tablet 5 Active lisinopril 20 MG tabletIndication s:Primary hypertension TAKE 1 TABLET BY MOUTH EVERY DAY 90 tablet 1 5 Active hydroCHLOROthiaz alonzo 12.5 MG tabletIndication s:Primary hypertension TAKE 1 TABLET BY MOUTH EVERY DAY 90 tablet 1 5 Active ipratropium (Atrovent) 0.03 % nasal sprayIndications :Acute URI Administer 1 spray into each nostril every 12 (twelve) hours. 30 mL 12 5 026 Active Salicylic Acid 40 % pads Apply to affected area every 48 hours for 14 days 10 each 5 Active Urea 45 % cream Apply to affected are once or twice daily 255 g 1 5 Active benzonatate (Tessalon Perles) 100 MG capsuleIndicatio ns:Acute URI Take 1 capsule (100 mg) by mouth if needed in the morning, at noon, and at bedtime for cough for up to 7 days. Do not crush or chew. 20 capsule 5 025 Active Problems Problem Noted Date Diagnosed Date Callus of toe 04/11/2025 Assessment & Plan (04/11/2025 6:26 AM EST): - painful - wear comfortable shoes - urea cream or ceramide cream CARLOS (obstructive sleep apnea) 01/15/2025 Assessment & Plan (04/11/2025 6:14 AM EST): - Sleep study on 11/23/2024: Severe CARLOS with AHI 43. Mild nocturnal hypoxemia with average oxygen saturation 94% and O2 sats below 88% for 12 minutes. - Recommended to start CPAP therapy with AutoPAP mode and pressure setting of 6 to 20 cm H2O, using the appropriate interface. - Patient would like to see more comfortable mask options; will refer to sleep medicine clinic. Assessment & Plan (01/15/2025 6:51 PM EDT): [...] AutoPap. Erectile dysfunction 01/15/2025 Assessment & Plan (04/11/2025 6:23 AM EST): - Total testosterone level 676; PSA 2.87 - tadalafil 20 mg prn - upcoming appointment with urologist Assessment & Plan (01/15/2025 6:53 PM EDT): - Total testosterone level 676; PSA 2.87 - tadalafil 10 mg daily is ineffective; will increase to 20 mg - will refer to urologist Metabolic dysfunction-associ ated steatotic liver disease (MASLD) 01/15/2025 Assessment & Plan (01/15/2025 6:55 PM [...] triceps 10/06/2024 Migraine 06/09/2024 Assessment & Plan (04/11/2025 6:24 AM EST): - presented to [facility] in Mar 2024, severe left sided SULLIVAN and paresthesia, requiring hospitalization. - head CT normal - evaluated by neurologist. Dx migraine with aura. Rx topiramate. Assessment & Plan (01/15/2025 6:49 PM EDT): - presented to [facility] in Mar 2024, severe left sided SULLIVAN and paresthesia, requiring hospitalization. - head CT normal - evaluated by neurologist. Dx migraine with aura. Rx topiramate. Assessment & Plan (06/09/2024 5:28 AM EST): - presented to [facility] in Mar 2024, severe left sided [...] 05/25/2022 Allergic rhinitis 05/25/2022 Assessment & Plan (04/11/2025 6:22 AM EST): - restart cetirizine, take daily or more frequently during allergy season - if his current symptoms do not improve or worsen, call to assess antibiotic treatment needs Assessment & Plan (09/17/2023 4:53 PM EDT): [...] and depressive disorder 06/03/2017 Assessment & Plan (04/11/2025 6:23 AM EST): - continue sertraline Assessment & Plan (01/15/2025 6:49 PM EDT): - continue sertraline Assessment & Plan (06/11/2024 10:49 PM EST): - continue sertraline Assessment & Plan (09/26/2022 5:23 PM EDT): - continue sertraline Assessment & Plan (05/25/2022 12:15 PM EST): - continue sertraline Posttraumatic stress disorder 06/03/2017 Assessment & Plan (04/11/2025 6:23 AM EST): [facility] -Hx psychiatric hospitalization -receiving CBT. -continue current medication. Assessment & Plan (06/11/2024 10:48 PM EST): -[facility] -Hx psychiatric hospitalization -receiving CBT. -continue current medication. Assessment & Plan (09/26/2022 5:23 PM EDT): -[facility] -Hx psychiatric hospitalization -receiving CBT. -continue current medication. Hypertension 09/13/2015 Assessment & Plan (04/11/2025 6:21 AM EST): -Goal BP < 130/80 per ACC/AHA guideline [...] HYPERTENSION WRITTEN ON 05/25/2022 12:17 PM BY DAYRON ALONZO MD -Goal BP < 140/90 per [...] HYPERTENSION WRITTEN ON 09/26/2022 5:20 PM BY DAYRON ALONZO MD -Goal BP < 140/90 per [...] Date Diagnosed Date Resolved Date Morbid obesity (CMS/HCC) 10/06/202409/2024 Scabies infestation 08/04/2024 01/16/20 Assessment & Plan [...] new insurance becomes active Daytime somnolence 03/04/2018 History of substance use disorder 06/03/2017 05/25/2022 Encounters Date Type Department Care Team Description 04/06/2025 3:30 PM EST Office Visit [facility] [address] [place] [phone] Dayron Alonzo MD Hypertension, unspecified type (Primary Dx); Allergic rhinitis, unspecified seasonality, unspecified trigger; Prediabetes; Class 2 obesity due to excess calories without serious comorbidity with body mass index (BMI) of 35.0 to 35.9 in adult; Erectile dysfunction, unspecified erectile dysfunction type; Posttraumatic stress disorder; Mixed anxiety and depressive disorder; CARLOS (obstructive sleep apnea); Migraine without status migrainosus, not intractable, unspecified migraine type; Callus of toe 04/06/2025 Refill [facility] [address] [place] [phone] Dayron Alonzo MD 04/06/2025 Travel 04/05/[address] [address] Dayron Alonzo MD chartprep 03/11/2025 2:00 PM EDT Office Visit [facility] [address] [place] [phone] Sonia Pineda MD Acute URI (Primary Dx); Sore throat 03/11/2025 Travel 03/07/2025 Refill [facility] [address] [place] [phone] Dayron Alonzo MD Primary hypertension 02/19/2025 3:00 PM EDT Office Visit [facility] ADULT DENTAL [address] [place] [phone] [place]-Smart , Aminta, DDS Dental caries (Primary Dx); Dental abscess 02/19/2025 Telephone [facility] [address] [place] [phone] [place] , Aminta, DDS PAR unable to run DD of [place] 01/25/2025 Results Follow-Up [facility] [address] [place] [phone] Dayron Alonzo MD CBC auto differential, Comprehensive Metabolic Panel, TSH with Reflex to Free T4, Hemoglobin A1c 01/24/[address] [address] Mica Mendiola MD Nonintractable headache, unspecified chronicity pattern, unspecified headache type; Primary hypertension 01/23/2025 Refill [facility] [address] [place] [address] Dayron Alonzo MD Primary hypertension 01/20/2025 Telephone [facility] [address] [place] [address] Dayron Alonzo MD Durable Medical Equipment (DME Request: Auto CPAP) from Last 3 Months Immunizations Immunization Administration Dates Next Due Influenza injectable quadriv alent IIV4 with preservative 03/04/2018,06/25/2017 Influenza injectable quadriv alent preservative free 03/17/2019 Influenza, Injectable, MDCK, preservative free 04/06/2025,05/10/2024 Moderna Covid-19 Vaccine 12+ 05/10/2021,10/01/19 21,09/02/2020 Moderna [...] Mass Index 32.14 04/06/2025 3:44 PM EST Plan of Treatment Health Maintenance Due Date Last Done Comments Dental Oral Exam 1981 Dental Prophylaxis 1981 Family Planning (PISQ) 1996 HPV Vaccines (1 - Male 3-dose series) 1996 Hepatitis A Vaccines (1 of 2 - Risk 2-dose series) 2000 COVID-19 Vaccine ( season) 2025 04/03/2022, 05/10/2021, 09/30/2020, Additional history exists Disability Screening 06/02/2025 06/02/2024 Depression Screening 01/05/2026 01/05/2025, 01/06/20 25 SDOH Screening 01/05/2026 01/05/2025 Diabetes: Hemoglobin A1C 01/22/2026 025, 2024, 09/17/2023, Additional history exists Dental X-Ray: Bitewings 02/20/2026 02/19/2025 Alcohol/Substance Use Screening 04/06/2026 04/06/2025 Tobacco Screening 04/11/2026 04/11/2025 Dental X-Ray: Full Mouth 10/08/2027 10/06/2024 DTaP/Tdap/Td Vaccines (3 - Td or Tdap) 11/27/2027 11/26/2017, 08/17/2010 Lipid Panel 2029 2024, 05/0 11/2023, 07/13/2021 Zoster Vaccines (1 of 2) 12/09/2031 RSV Patients and Patients Aged 60 years or older (1 - 1-dose 75+ series) 2056 HIV Screening Completed 2024 Hepatitis C Screening Completed 2024 Influenza Vaccine Completed 04/06/2025, , 03/17/2019, Additional history exists HIB Vaccines Aged Out No longer eligi [...] Procedure Name Priority Date/Time Associated Diagnosis Comments POCT RAPID COVID ANTIGEN Routine 03/11/2025 1:42 PM EDT Sore throat POCT INFLUENZA B (ID NOW RAPID MOLECULAR) Routine 03/11/2025 1:41 PM EDT Sore throat POCT INFLUENZA A (ID NOW RAPID MOLECULAR) Routine 03/11/2025 1:41 PM EDT Sore throat POC ROMERO ID NOW STREP A Routine 03/11/2025 1:32 PM EDT Sore throat CASE PRESENTATION, DETAILED AND EXTENSIVE TREATMENT PLANNING Routine 02/19/2025 3:00 PM EDT BITEWING - SINGLE RADIOGRAPHIC IMAGE Routine 02/19/2025 3:00 PM EDT INTRAORAL - PERIAPICAL FIRST RADIOGRAPHIC IMAGE Routine 02/19/2025 3:00 PM EDT PALLIATIVE (EMERGENCY) TREATMENT OF DENTAL PAIN - MINOR PROCEDURE Routine 02/19/2025 3:00 PM EDT HEMOGLOBIN A1C Routine 01/22/2025 4:15 PM EDT Prediabetes TSH W/REFLEX TO FT4 Routine 01/22/2025 4 :15 PM EDT Weight loss COMPREHENSIVE METABOLIC PANEL Routine 01/22/2025 4:15 PM EDT Weight loss CBC WITH AUTO DIFFERENTIAL Routine 01/22/2025 4:15 PM EDT Weight loss HEPATITIS C AB W/REFL TO HCV RNA, QN, PCR Routine 2024 9:41 AM EDT Routine screening for STI (sexually transmitted infection) HIV 1/2 ANTIGEN/ANTIBODY, FOURTH GENERATION W/RFL Routine 2024 9:41 AM EDT Routine screening for STI (sexually transmitted infection) LIPID PANEL WITH REFLEX TO DIRECT LDL Routine 2024 9:41 AM EDT Screening for lipid disorders PANORAMIC RADIOGRAPHIC IMAGE Routine 10/06/2024 1:00 PM EDT Dental caries Symptomatic irreversible pulpitis from Last 3 Months or Most Recently Relevant to Health Maintenance Results * POCT Rapid Covid-19 BinaxNOW (03/11/2025 1:42 PM EDT) [facility] Rapid COVID Ag Negative QC Media Lot # [id number] Lot# Expiration Date [id number] Swab 03/11/2025 1:42 PM EDT Sonia Pineda MD POINT OF CARE TEST ENTER/E DIT ORDERABLES Final Result * POCT Rapid Influenza B ROMERO ID NOW (03/11/2025 1:41 PM EDT) Influenza B Negative Negative, Indeterminate [facility] QC Media Lot # [id number] [facility] Lot# Expiration Date [facility] Swab 03/11/2025 1:41 PM EDT Sonia Pineda MD POINT OF CARE TEST ENTER/E DIT ORDERABLES Final Result Performing Organization Address [facility] Co de Phone Number [facility] [address] [place] [phone] * POCT Rapid Influenza A ROMERO ID NOW (03/11/2025 1:41 PM EDT) Influenza A Negative Negative, Indeterminate [facility] QC Media Lot # [id number] [facility] Lot# Expiration Date [facility] Swab 03/11/2025 1:41 PM EDT Sonia Pineda MD POINT OF CARE TEST ENTER/E DIT ORDERABLES Final Result Performing Organization Address [facility] Co de Phone Number [facility] [address] [place] [phone] * POCT Rapid Strep A ROMERO ID NOW (03/11/2025 1:32 PM EDT) Rapid Strep A Screen Negative Negative, None Detected QC Media Lot # [id number] Lot# Expiration Date Swab 03/11/2025 1:32 PM EDT Sonia Pineda MD POINT OF CARE TEST ENTER/E DIT ORDERABLES Final Result * TSH with Reflex to Free T4 (01/22/2025 4:15 PM EDT) TSH reflex Free T4 0.87 0.32 - 4.0 uIU/mL [facility] Blood 01/22/2025 4:15 PM EDT 01/22/2025 6:09 PM EDT Dayron Alonzo MD LAB BLOOD ORDERABLES Final Resul t [facility] [address] [place] [phone] * (ABNORMAL) CBC auto differential (01/22/2025 4:15 PM EDT) White Blood Count 7.2 4.8 - 10.8 X10*3/uL [facility] Red Blood Count 4.71 4.60 - 5.80 X10*6/uL [facility] Hemoglobin 14.1 14.0 - 18.0 g/dl [facility] Hematocrit 41.3(L) 42.0 - 52.0 % [facility] Mean Corpuscular Volume 87.7 80.0 - 98.0 fL [facility] Mean Corpuscular Hemoglobin 29.9 27.0 - 33.0 pg [facility] Mean Corpuscular HGB Conc 34.1 31.0 - 36.0 g/dl [facility] Red Cell Distribution Width 13.7 11.0 - 16.0 % [facility] Platelet Count 279 160 - 400 X10*3/uL [facility] Mean Platelet Volume 11.6 9.4 - 12.4 fL [facility] Neutrophils Percent Auto 51.0 45 - 73 % [facility] Imm Gran Pct Auto 0.1 0.0 - 0.4 % [facility] Lymphocytes Percent Auto 41.2(H) 20 - 40 % [facility] Monocytes Percent Auto 5.6 2 - 11 % [facility] Eosinophils Percent Auto 1.3 0 - 4 % [facility] Basophils Percent Auto 0.8 0 - 2 % [facility] NRBC Pct Auto 0.0 0.0 - 0.2 /100WBC [facility] Neutrophils Absolute Auto 3.7 2.0 - 8.3 x10*3/uL [facility] Imm Gran Abs Auto 0.01 0.00 - 0.03 X10*3/uL [facility] Lymphocytes Absolute Auto 3.0 1.2 - 4.9 X10*3/uL [facility] Monocytes Absolute Auto 0.4 0.1 - 1.2 X10*3/uL [facility] Eosinophils Absolute Auto 0.1 0.0 - 0.4 X10*3/uL [facility] Basophils Absolute Auto 0.1 0.0 - 0.2 X10*3/uL [facility] NRBC Abs Auto 0.000 0.0 - 0.012 X10*3/uL [facility] Blood Venous blood specimen / Unknown 01/22/2025 4:15 PM EDT 01/22/2025 6:09 PM EDT us Dayron Alonzo MD LAB BLOOD ORDERABLES Final Resul t [facility] [address] [place] [phone] * (ABNORMAL) Hemoglobin A1c (01/22/2025 4:15 PM EDT) Hemoglobin A1c 6.1(H) <6.0 % [facility] Comment:Hemoglobin A1C Refer ence Range Adults: 4.8 - 6.0 % Non diabetic: < 6.0 % Goal: < 7.0 %Additional Action Suggested: > 8.0 %Note: Hemoglobin A1c results are invalid for patients with abnormal amounts of HbF. Blood transfusions may impact the HbA1c concentration in the patient sample. Estimated Average Glucose 128 mg/dL [facility] Comment:eAG = Estimated ave rage glucose which is %A1C expressed asaverage glucose, using the formula of the [id number] Glucose study (ADAG), Diabetes Care, Vol.31,#8,Dec. 2007 Blood Venous blood specimen / Unknown 01/22/2025 4:15 PM EDT 01/22/2025 6:09 PM EDT us Dayron Alonzo MD LAB BLOOD ORDERABLES Final Resul t [facility] [address] [place] [phone] * (ABNORMAL) Comprehensive Metabolic Panel (01/22/2025 4:15 PM EDT) Sodium 139 135 - 145 mmol/L [facility] Potassium 3.9 3.3 - 5.1 mmol/L [facility] Chloride 106 96 - 108 mmol/L [facility] Carbon Dioxide 25 22 - 29 mmol/L [facility] Anion Gap 12 12 - 20 [facility] Urea Nitrogen (BUN) 22(H) 9 - 16 mg/dL [facility] Creatinine, Serum 1.18 0.5 - 1.4 mg/dL [facility] Estimated Glomerular Filt Rate >60 [facility] Comment:Chronic Kidney Disea se: Estimated GFR < 60 mL/min/1.93p5Degcto Kidney Disease: Estimated GFR < 15 mL/min/1.73m2 Glucose 72 60 - 115 mg/dL [facility] Calcium 10.0 8.4 - 10.2 mg/dL [facility] Bilirubin, Total 0.4 0.0 - 1.0 mg/dL [facility] Aspartate Amino Transferase 36 5 - 37 U/L [facility] Alanine Aminotransferase 32 0 - 40 U/L [facility] Total Protein 8.4(H) 6.5 - 8.0 g/dL [facility] Albumin Level 4.7 3.5 - 5.0 g/dL [facility] Alkaline Phosphatase 98 39 - 117 U/L [facility] Blood Venous blood specimen / Unknown 01/22/2025 4:15 PM EDT 01/22/2025 6:09 PM EDT Dayron Alonzo MD LAB BLOOD ORDERABLES Final Resul t Performing Organization Address [facility] Co de Phone Number [facility] [address] [place] [phone] * (ABNORMAL) Lipid Panel with Reflex to Direct LDL (2024 9:41 AM EDT) Triglycerides 93 <150 mg/dL [facility] Comment:Desirable Triglyceri de: less than 150 mg/dLBorderline High Triglyceride 150-199 mg/dLHigh Triglyceride: 200-499 mg/dLVery High Triglyceride: greater than or equal to 5OO mg/dL Cholesterol 234(H) <200 mg/dL [facility] Comment:Desirable Cholestero l: less than 200 mg/dLBorderline High Cholesterol: 200-239 mg/dLHigh Cholesterol: greater than 239 mg/dL LDL Cholesterol Calculated 168(H) <100 mg/dL [facility] Comment:Desirable LDL: less than 100 mg/dLNear Optimal/Above Optimal LDL: 110- 129 mg/dLBorderline High LDL: 130-159 mg/dLHigh LDL: 160-189 mg/dLVery High LDL: greater than or equal to 190 mg/dL HDL Cholesterol 48 >40 mg/dL [facility] Comment:Desirable HDL: great er than 40 mg/dL Note: This HDL assay may give artificially low results in patients with liver disease. Blood 2024 9:41 AM EDT 2024 11:17 AM EDT Dayron Alonzo MD LAB BLOOD ORDERABLES Final Resul t Performing Organization Address [facility] Co de Phone Number [facility] [address] [place] [address] [phone] * Hepatitis C Antibody with Reflex to HCV, RNA, Quantitative, Real-Time PCR (2024 9:41 AM EDT) Hepatitis C Antibody Nonreactive Nonreactive [facility] Comment:Antibodies to HCV no t detected; does not exclude early acuteHCV infection. Blood Venous blood specimen / Unknown 2024 9:41 AM EDT 2024 11:17 AM EDT Dayron Alonzo MD LAB BLOOD ORDERABLES Final Resul t Performing Organization Address City/[facility]/ZIP Co de Phone Number [facility] [address] [place] [phone] * HIV-1/2 Antigen and Antibodies, Fourth Generation, with Reflexes (2024 9:41 AM EDT) [facility] HIV AB/AG Nonreactive Nonreactive [facility] Comment:HIV-1 p24 Ag and/or HIV-1/HIV-2 Ab not detected.A test result that is nonreactive does not exclude thepossibility of exposure to or infection with HIV-1 and/orHIV-2. Nonreactive results in this assay for individualswith prior exposure to HIV-1 and/or HIV-2 may be due toantigen and antibody levels that are below the limit ofdetection of this assay.The Lumate HIV Ag/Ab Combo assay result andsupplemental assay results should be interpreted inconjunction with the patient's clinical presentation,history and other laboratory results. If the results areinconsistent with clinical evidence, additional testing issuggested to confirm the result. Blood Venous blood specimen / Unknown 2024 9:41 AM EDT 2024 11:17 AM EDT us Dayron Alonzo MD LAB BLOOD ORDERABLES Final Resul t Performing Organization Address City/[facility]/ZIP Co de Phone Number [facility] [address] [place] [phone] from Last 3 Months or Most Recently Relevant to Health Maintenance Insurance [facility] [facility] D[facility] - HSN PARTIAL (MEDICAID) Care Teams Spooler Relationship Specialty Start Date End Date Dayron Alonzo MD [address] [place] [phone] PCP - General Family Medicine 12/08/18
--- OUTSIDE RECORDS SUMMARY | 2025-04-13 15:10 | XMS_ITS | Encounter Summary ---
Author Organization [employer] Address [address] [facility] [address] [place] [address] Care Team Providers Care Finishing Range Supervisor Name Role Phone Eneida Alonzo MD Primary Care Provider [phone] Reason for Visit * Reason Onset Date Comments Med Refill 10/30/2024 Encounter Details Date Type Department Care Team ([facility] st Contact Info) Description 10/30/2024 Refill [facility] [address] [place], [place] [phone] Sarkis Tsang MD [address] [place], [place] [phone] Nonintractable headache, unspecified chronicity pattern, unspecified headache [...] type documented in this encounter Care Teams Finishing Range Supervisor Relationship Specialty Start Date End Date Eneida Alonzo MD [address] [place] [address] PCP - General Family Medicine 12/08/18 documented as of this encounter
--- OUTSIDE RECORDS SUMMARY | 2025-04-13 15:10 | XMS_ITS | Encounter Summary ---
Author Organization [employer] Address [address] [facility] [address] [place] [address] Care Team Providers Care Tenterer Name Role Phone Eneida Alonzo MD Primary Care Provider [phone] Reason for Visit * Reason Onset Date Comments medication did not go through 12/17/2024 Encounter Details Date Type Department Care Team ([facility] st Contact Info) Description 12/17/2024 Telephone [facility] [address] [place] [address] Shai Sol, CHAPARRO [address] [place] [address] medication did not go through Social History [...] Miscellaneous Notes * Telephone Encounter - Salma Felipe - 12/17/2024 10:42 AM EDT Patient called in stating that medication did not make it to the pharmacy . I contacted [facility] as it is in the system that it was sent, however [facility] is confirming they did not receive the script. They are able to take a verbal if you can contact them or resend. Please reach out to pharmacy for patient o be able to waste picker script Sent to clinical support E Prescribing and front end specialist documented in this encounter Plan of Treatment Not on file documented as of this encounter Visit Diagnoses Not on filedocumented in this encounter Care Teams Tenterer Relationship Specialty Start Date End Date Eneida Alonzo MD [address] [place] [address] PCP - General Family Medicine 12/08/18 documented as of this encounter
== END 2025-04-13 13:58 | disposition home or self-care (01) ==
LOC: HO.HUSH 13:14
PROVIDERS: PCP Family Medicine; Visit Provider Urology
DX: E11.69 Type 2 diabetes mellitus with other specified complication (principal); N52.1 Erectile dysfunction due to diseases classified elsewhere; N52.9 Male erectile dysfunction, unspecified
CPT/HCPCS: 99204

== ENCOUNTER → 2025-04-13 13:13 | Outpatient (BNVA) | payer OTHER, SELFPAY | PROVIDERS: PCP Family Medicine; Visit Provider Urology | DX: E11.69 Type 2 diabetes mellitus with other specified complication (principal); N52.1 Erectile dysfunction due to diseases classified elsewhere; G47.30 Sleep apnea, unspecified; Z71.3 Dietary counseling and surveillance | CPT/HCPCS: 81003 ==

== ENCOUNTER 2025-04-30 10:28 | Outpatient (REF) | payer OTHER, SELFPAY ==
--- NOTE | ~2025-04-30 | US_ITS ---
EXAMINATION: US ABDOMEN COMPLETE WITH LIVER ELASTOGRAPHY HISTORY: transaminitis TECHNIQUE: Real-time grayscale ultrasound imaging of the abdomen was performed and images were reviewed. COMPARISON: There are no prior studies available for comparison. FINDINGS: Liver: The right lobe of the liver measures 13.3 cm in size. The left lobe of the liver measures 7.8 cm in size. The liver demonstrates normal homogeneous echotexture. No focal mass or intrahepatic biliary ductal dilatation is identified. There is normal hepatopedal flow in the portal vein. Ultrasound elastography of the liver was performed with 10 separate measurements of the liver parenchyma with the patient in the supine position. Measurements were obtained approximately 2 cm below Nick's capsule and perpendicular to the capsule. The median shear wave velocity is 1.25 m/s. The interquartile range/median (IQR/median) is 0.26. Gallbladder and biliary tree: The gallbladder is unremarkable, without evidence of calculi, wall thickening, or pericholecystic fluid. There is no sonographic Chavez sign. The common bile duct is normal in caliber measuring 2 mm in diameter. Kidneys: The right kidney measures 11.1 cm in length. The left kidney measures 11.7 cm in length. There is a 5 mm nonobstructing calculus at the lower pole of the left kidney. No right renal calculi are identified. There is no mass or hydronephrosis. Pancreas: The pancreatic head, neck, and body are unremarkable. The pancreatic tail is obscured by bowel gas. Spleen: The spleen is normal in size and contour, measuring 8.7 cm in length. Abdominal aorta and inferior vena cava: The visualized portions of the abdominal aorta and inferior vena cava are normal in caliber. There is no free fluid in the abdomen. US/US abdomen comp w elastography IMPRESSION: 5 mm nonobstructing left lower pole renal calculus. Otherwise unremarkable abdominal ultrasound. The median shear wave velocity in the liver is 1.25 m/s, corresponding to a median liver stiffness of 4.7 kPa. The IQR/median value is 0.26. This is indicative of a quality data set. Findings are indicative of a normal elastography value with a low likelihood of severe fibrosis or cirrhosis. REFERENCE: Society of Radiologists in Ultrasound Liver Stiffness Thresholds (2020): LIVER STIFFNESS THRESHOLDS: *Shear wave velocity less than 1.3 m/s (Liver Stiffness equal or less than 5 kPa): High probability of being normal. *Shear wave velocity less than 1.7 m/s (Liver Stiffness less than 9 kPa): In the absence of other known clinical signs, rules out compensated advanced chronic liver disease. *Shear wave velocity between 1.7-2.1 m/s (Liver Stiffness 9-13 kPa): Suggestive of compensated advanced chronic liver disease but need further test for confirmation. *Shear wave velocity between 2.1-2.4 m/s (Liver Stiffness 13-17 kPa): Rules in compensated advanced chronic liver disease. *Shear wave velocity greater than 2.4 m/s (Liver Stiffness over 17 kPa): Suggestive of clinically significant portal hypertension. QUALITY OF DATA SET: *IQR/Median value equal or less than 0.30 implies a quality data set. *IQR/Median value over 0.30 implies a poor quality data set. SIGNIFICANT CHANGE FROM PRIOR EXAM: Significant change if liver stiffness measurement is 10% or greater from prior exam. OTHER CONSIDERATIONS: The stage of liver fibrosis may be overestimated in the setting of acute hepatitis, liver inflammation, elevated liver function tests, hepatic vascular congestion, obstructive cholestasis, non-fasting state, and infiltrative diseases such as amyloidosis and lymphoma. In some patients with NAFLD, the liver stiffness thresholds for compensated advanced chronic liver disease may be lower. In causes other than viral hepatitis and NAFLD, liver stiffness thresholds are not well established. Electronically signed by: Sunday Dorantes MD 04/30/2025 11:13 AM [facility]
--- OUTSIDE RECORDS SUMMARY | 2025-04-30 12:05 | XMS_ITS | Encounter Summary ---
Author Organization [employer] Address [address] [facility] 7t [place] [address] Care Team Providers Care Silk Blocker Name Role Phone Eneida Alonzo MD Primary Care Provider [phone] Reason for Visit * Reason Onset Date Comments PAR unable to run DD of [place] 02/19/2025 Encounter Details Date Type Department Care Team ([facility] st Contact Info) Description 02/19/2025 Telephone [facility] [address] [place] [address] Aminta Smith, DDS [address] [place] [address] PAR unable to run DD of [place] [...] on PAR side. Reached out to front edger dental and front edger will run and post DR documented in this encounter Plan of Treatment Not on file documented as of this encounter Visit Diagnoses Not on filedocumented in this encounter Additional Health Concerns Assessment Noted Time PHQ-9 Depression Total Score: 0 01/06/20 25 3:55 PM EDT documented as of this encounter Care Teams Silk Blocker Relationship Specialty Start Date End Date Eneida Alonzo MD [address] [place] [phone] PCP - General Family Medicine 12/08/18 documented as of this encounter
--- OUTSIDE RECORDS SUMMARY | 2025-04-30 12:05 | XMS_ITS | Encounter Summary ---
Author Organization [employer] Address [address] [facility] 7t [place] [address] Care Team Providers Care Cuff Turner Machine Operator Name Role Phone Eneida Alonzo MD Primary Care Provider [phone] Encounter Details Date Type Department Care Team ([facility] st Contact Info) Description 12/07/2024 Orders Only [facility] MEDICINE [address] [place], [place] [phone] Eneida Alonzo MD [address] [place], [place] [phone] Primary hypertension (Primary Dx); Erectile dysfunction, unspecified [...] 9:41 AM EDT) Syphilis Screen Nonreactive Nonreactive [facility] Blood Venous blood specimen / Unknown 2024 9:41 AM EDT 2024 11:17 AM EDT us Eneida Alonzo MD LAB BLOOD ORDERABLES Final Resul t [facility] [address] [place] [address] [phone] * HIV-1/2 Antigen and Antibodies, Fourth Generation, with Reflexes (2024 9:41 AM EDT) HIV AB/AG Nonreactive Nonreactive [facility] Comment:HIV-1 p24 Ag and/or HIV-1/HIV-2 Ab not detected.A test result that is nonreactive does not exclude thepossibility of exposure to or infection with HIV-1 and/orHIV-2. Nonreactive results in this assay for individualswith prior exposure to HIV-1 and/or HIV-2 may be due toantigen and antibody levels that are below the limit ofdetection of this assay.The [facility] [employer] HIV Ag/Ab Combo assay result andsupplemental assay results should be interpreted inconjunction with the patient's clinical presentation,history and other laboratory results. If the results areinconsistent with clinical evidence, additional testing issuggested to confirm the result. Blood Venous blood specimen / Unknown 2024 9:41 AM EDT 2024 11:17 AM EDT us Eneida Alonzo MD LAB BLOOD ORDERABLES Final Resul t Performing Organization Address [facility] Co de Phone Number [facility] [address] [place] [phone] * Hepatitis C Antibody with Reflex to HCV, RNA, Quantitative, Real-Time PCR (2024 9:41 AM EDT) [facility] Hepatitis C Antibody Nonreactive Nonreactive [facility] Comment:Antibodies to HCV no t detected; does not exclude early acuteHCV infection. Blood Venous blood specimen / Unknown 2024 9:41 AM EDT 2024 11:17 AM EDT us Eneida Alonzo MD LAB BLOOD ORDERABLES Final Resul t Performing Organization Address [facility] Co de Phone Number [facility] [address] [place] [phone] * Hepatitis B surface antigen, EIA (2024 9:41 AM EDT) [facility] Hepatitis B Surface Ag Negative Negative [facility] Blood Venous blood specimen / Unknown 2024 9:41 AM EDT 2024 11:17 AM EDT Eneida Alonzo MD LAB BLOOD ORDERABLES Final Resul t Performing Organization Address City/[facility] Co de Phone Number [facility] [address] [place] [address] [phone] * Chlamydia/N. Gonorrhoeae, PCR, Urine (2024 9:41 AM EDT) [facility] CT PCR, Urine NOT DETECTED Not Detect. [facility] Comment:A not detected test result [...] NG PCR, Urine NOT DETECTED Not Detect. [facility] Comment:A not detected test result [...] MD LAB URINE ORDERABLES Final Resul t [facility] [address] [place] [address] [phone] * Testosterone, Total, males (Adult), IA (2024 9:41 AM EDT) Testosterone, Total 676 250 - 1100 ng/dL [facility] Comment:For additional infor matfidencio, please refer [email or web address]/faq/[email or web address](This link is being provided for informational/educational purposes only.)This test was developed and its analytical performancecharacteristics have been determined by [employer] [place], [place]. It hasnot been cleared or approved by the U.S. Food and DrugAdministration. This assay has been validated pursuantto the CLIA regulations and is used for clinicalpurposes.THIS TEST WAS PERFORMED AT:[employer] [place] [id number] ADAMES MD,PHD Blood Venous blood specimen / Unknown 2024 9:41 AM EDT 2024 11:06 AM EDT Eneida Alonzo MD LAB BLOOD ORDERABLES Final Resul t Performing Organization Address City/[facility]/ZIP Co de Phone Number [facility] [address] [place] [phone] * PSA, Screen (2024 9:41 AM EDT) PSA, Total 2.87 <0.05 - 4.0 ng/mL [facility] Comment:PSA methodology: Abb ct Alinity i ChemiluminescentMicroparticle Immunoassay (CMIA) Blood Venous blood specimen / Unknown 2024 9:41 AM EDT 2024 11:17 AM EDT us Eneida Alonzo MD LAB BLOOD ORDERABLES Final Resul t Performing Organization Address City/[facility]/ZIP Co de Phone Number [facility] [address] [place] [phone] * (ABNORMAL) Lipid Panel with Reflex to Direct LDL (2024 9:41 AM EDT) Triglycerides 93 <150 mg/dL [facility] Comment:Desirable Triglyceri de: less than 150 mg/dLBorderline High Triglyceride 150-199 mg/dLHigh Triglyceride: 200-499 mg/dLVery High Triglyceride: greater than or equal to 5OO mg/dL Cholesterol 234(H) <200 mg/dL [facility] Comment:Desirable Cholestero l: less than 200 mg/dLBorderline High Cholesterol: 200-239 mg/dLHigh Cholesterol: greater than 239 mg/dL LDL Cholesterol Calculated 168(H) <100 mg/dL [facility] Comment:Desirable LDL: less than 100 mg/dLNear Optimal/Above Optimal LDL: 110- 129 mg/dLBorderline High LDL: 130-159 mg/dLHigh LDL: 160-189 mg/dLVery High LDL: greater than or equal to 190 mg/dL HDL Cholesterol 48 >40 mg/dL [facility] Comment:Desirable HDL: great er than 40 mg/dL Note: This HDL assay may give artificially low results in patients with liver disease. Blood 2024 9:41 AM EDT 2024 11:17 AM EDT us Eneida Alonzo MD LAB BLOOD ORDERABLES Final Resul t [facility] [address] [place] [phone] [phone] * (ABNORMAL) Comprehensive Metabolic Panel (2024 9:41 AM EDT) Sodium 139 135 - 145 mmol/L [facility] Potassium 3.7 3.3 - 5.1 mmol/L [facility] Chloride 106 96 - 108 mmol/L [facility] Carbon Dioxide 28 22 - 29 mmol/L [facility] Anion Gap 9(L) 12 - 20 [facility] Urea Nitrogen (BUN) 13 9 - 16 mg/dL [facility] Creatinine, Serum 1.09 0.5 - 1.4 mg/dL [facility] Estimated Glomerular Filt Rate >60 [facility] Comment:Chronic Kidney Disea se: Estimated GFR < 60 mL/min/[id number] Kidney Disease: Estimated GFR < 15 mL/min/1.73m2 Glucose 107 60 - 115 mg/dL [facility] Calcium 9.4 8.4 - 10.2 mg/dL [facility] Bilirubin, Total 0.5 0.0 - 1.0 mg/dL [facility] Aspartate Amino Transferase 48(H) 5 - 37 U/L [facility] Alanine Aminotransferase 43(H) 0 - 40 U/L [facility] Total Protein 7.9 6.5 - 8.0 g/dL [facility] Albumin Level 4.5 3.5 - 5.0 g/dL [facility] Alkaline Phosphatase 94 39 - 117 U/L [facility] Blood Venous blood specimen / Unknown 2024 9:41 AM EDT 2024 11:17 AM EDT us Eneida Alonzo MD LAB BLOOD ORDERABLES Final Resul t Performing Organization Address [facility] de Phone Number [facility] [address] [place] [phone] * (ABNORMAL) Hemoglobin A1c (2024 9:41 AM EDT) Hemoglobin A1c 6.3(H) <6.0 % [facility] Comment:Hemoglobin A1C Refer ence Range Adults: 4.8 - 6.0 % Non diabetic: < 6.0 % Goal: < 7.0 %Additional Action Suggested: > 8.0 %Note: Hemoglobin A1c results are invalid for patients with abnormal amounts of HbF. Blood transfusions may impact the HbA1c concentration in the patient sample. Estimated Average Glucose 134 mg/dL [facility] Comment:eAG = Estimated ave rage glucose which is %A1C expressed asaverage glucose, using the formula of the J9X-JhgxvutMeiwjtl Glucose study (ADAG), Diabetes Care, Vol.31,#8,Dec. 2007 Blood Venous blood specimen / Unknown 2024 9:41 AM EDT 2024 11:06 AM EDT us Eneida Alonzo MD LAB BLOOD ORDERABLES Final Resul t Performing Organization Address [facility] Co de Phone Number [facility] [address] [place] [phone] * TSH with Reflex to Free T4 (2024 9:41 AM EDT) TSH reflex Free T4 1.33 0.32 - 4.0 uIU/mL [facility] Blood 2024 9:41 AM EDT 2024 11:17 AM EDT us Eneida Alonzo MD LAB BLOOD ORDERABLES Final Resul t [facility] [address] [place] [address] [phone] documented in this encounter Visit Diagnoses Diagnosis Primary hypertension- Primary Unspecified essential hypertension Erectile dysfunction, unspecified erectile dysfunction type Lower urinary tract symptoms Other symptoms involving urinary system Screening for lipid disorders Screening for diabetes mellitus Routine screening for STI (sexually transmitted infection) Screening examination for venereal disease documented in this encounter Care Teams Cuff Turner Machine Operator Relationship Specialty Start Date End Date Eneida Alonzo MD [address] [place] [phone] PCP - General Family Medicine 12/08/18 documented as of this encounter
--- OUTSIDE RECORDS SUMMARY | 2025-04-30 12:05 | XMS_ITS | Encounter Summary ---
Author Organization [employer] Address [address] [facility] 7t [place] [address] Care Team Providers Care Parts Sales Counterperson Name Role Phone Eneida Alonzo MD Primary Care Provider [phone] Encounter Details Date Type Department Care Team ([facility] st Contact Info) Description 11/12/2023 Orders Only [facility] MEDICINE [address] [place], [place] [phone] Eneida Alonzo MD [address] [place], [place] [phone] Sleep disturbance (Primary Dx); Witnessed episode of [...] PM EST) Influenza A PCR NEGATIVE Negative [facility] Influenza B PCR NEGATIVE Negative [facility] Resp Syncy Virus RNA Qual PCR NEGATIVE Negative [facility] SARS COV2 PCR NEGATIVE Negative [facility] Comment:All test results mus t [...] use by authorized laboratories.Testing performed on the [employer] GeneXpert utilizingreal-time RT-PCR.All SARS CoV2 and positive influenza A/B results arereported to [facility]. 03/28/2024 7:28 PM EST 03/28/2024 7:46 PM EST [employer] External Data Provider LAB MICROBIOLOGY - GENERAL ORDERABLES Final Result Performing Organization Address [facility] de Phone Number [facility] [address] [place] [phone] * High Sensitivity Troponin I (03/28/2024 7:28 PM EST) [facility] TROPONIN I HIGH SENSITIVITY <2.7 <3.5 - 35.0 ng/L [facility] Comment:The Rayo high sens itivity Troponin-I results should beused in conjunction with other diagnostic information suchas ECG, clinical observations and information, and patientsymptoms to aid in the diagnosis of [place]. 03/28/2024 7:28 PM EST 03/28/2024 7:46 PM EST [employer] External Data Provider LAB BLOOD ORDERAB LES Final Result Performing Organization Address [facility] de Phone Number [facility] [address] [place] [phone] * B Type Natriuretic Peptide (BNP) (03/28/2024 7:28 PM EST) [facility] B Type Natriuretic Peptide 25 <100 pg/mL [facility] Comment:For those patients w ho are being treated with Natrecor(nesiritide, recombinant BNP), BNP testing should beperformed at least two hours post treatment in order toensure that only endogenous levels of BNP are detected. 03/28/2024 7:28 PM EST 03/28/2024 7:46 PM EST us Generic External Data Provider LAB BLOOD ORDERAB LES Final Result Performing Organization Address City/[facility]/ZIP Co de Phone Number [facility] [address] [place] [phone] * Magnesium (03/28/2024 7:28 PM EST) Magnesium 2.1 1.6 - 2.6 mg/dL [facility] 03/28/2024 7:28 PM EST 03/28/2024 7:46 PM EST us Generic External Data Provider LAB BLOOD ORDERAB LES Final Result Performing Organization Address [facility] Co de Phone Number [facility] [address] [place] [phone] * Basic Metabolic Panel (03/28/2024 7:28 PM EST) Sodium 139 135 - 145 mmol/L [facility] Potassium 4.0 3.3 - 5.1 mmol/L [facility] Chloride 104 96 - 108 mmol/L [facility] Carbon Dioxide 25 22 - 29 mmol/L [facility] Anion Gap 14 12 - 20 [facility] Urea Nitrogen (BUN) 16 9 - 16 mg/dL [facility] Creatinine, Serum 0.94 0.5 - 1.4 mg/dL [facility] Creatinine Clr Calc Pharmacy 130.6 [facility] Comment:eGFR (calculated fro m the MDRD study equation) and eCrCl(calculated from the Cockcroft-Gault equation) are based ondifferent parameters and may not yield comparable results.If eCrCl result is absurd, please check patient'sheight/weight. Estimated Glomerular Filt Rate >60 [facility] Comment:Chronic Kidney Disea se: Estimated GFR < 60 mL/min/[id number] Kidney Disease: Estimated GFR < 15 mL/min/1.73m2 Glucose 93 60 - 115 mg/dL [facility] Calcium 9.3 8.4 - 10.2 mg/dL [facility] 03/28/2024 7:28 PM EST 03/28/2024 7:46 PM EST Generic External Data Provider LAB BLOOD ORDERAB LES Final Result Performing Organization Address City/[facility] Co de Phone Number [facility] [address] [place] [phone] * (ABNORMAL) Hepatic Function Panel (03/28/2024 7:28 PM EST) Bilirubin, Total 0.5 0.0 - 1.0 mg/dL [facility] Bilirubin, Direct 0.2 0.0 - 0.5 mg/dL [facility] Aspartate Amino Transferase 49(H) 5 - 37 U/L [facility] Alanine Aminotransferase 49(H) 0 - 40 U/L [facility] Total Protein 8.0 6.5 - 8.0 g/dL [facility] Albumin Level 4.3 3.5 - 5.0 g/dL [facility] Alkaline Phosphatase 90 39 - 117 U/L [facility] 03/28/2024 7:28 PM EST 03/28/2024 7:46 PM EST Generic External Data Provider LAB BLOOD ORDERAB LES Final Result Performing Organization Address City/[facility] Co de Phone Number [facility] [address] [place] [phone] * Prothrombin Time-INR (03/28/2024 7:28 PM EST) Prothrombin Time 11.8 10.9 - 12.4 SEC [facility] INTERNATIONAL NORM RATIO 1.0 0.9 - 1.1 [facility] Comment:INTERNATIONAL NORMAL IZED RATIO (INR) [...] Provider LAB BLOOD ORDERAB LES Final Result [facility] [address] [place], [place] [phone] * (ABNORMAL) CBC auto differential (03/28/2024 7:28 PM EST) White Blood Count 7.2 4.8 - 10.8 X10*3/uL [facility] Red Blood Count 4.81 4.60 - 5.80 X10*6/uL [facility] Hemoglobin 14.4 14.0 - 18.0 g/dl [facility] Hematocrit 41.6(L) 42.0 - 52.0 % [facility] Mean Corpuscular Volume 86.5 80.0 - 98.0 fL [facility] Mean Corpuscular Hemoglobin 29.9 27.0 - 33.0 pg [facility] Mean Corpuscular HGB Conc 34.6 31.0 - 36.0 g/dl [facility] Red Cell Distribution Width 13.2 11.0 - 16.0 % [facility] Platelet Count 257 160 - 400 X10*3/uL [facility] Mean Platelet Volume 10.7 9.4 - 12.4 fL [facility] Neutrophils Percent Auto 51.9 45 - 73 % [facility] Imm Gran Pct Auto 0.1 0.0 - 0.4 % [facility] Lymphocytes Percent Auto 39.6 20 - 40 % [facility] Monocytes Percent Auto 6.1 2 - 11 % [facility] Eosinophils Percent Auto 1.7 0 - 4 % [facility] Basophils Percent Auto 0.6 0 - 2 % [facility] NRBC Pct Auto 0.0 0.0 - 0.2 /100WBC [facility] Neutrophils Absolute Auto 3.7 2.0 - 8.3 x10*3/uL [facility] Imm Gran Abs Auto 0.01 0.00 - 0.03 X10*3/uL [facility] Lymphocytes Absolute Auto 2.9 1.2 - 4.9 X10*3/uL [facility] Monocytes Absolute Auto 0.4 0.1 - 1.2 X10*3/uL [facility] Eosinophils Absolute Auto 0.1 0.0 - 0.4 X10*3/uL [facility] Basophils Absolute Auto 0.0 0.0 - 0.2 X10*3/uL [facility] NRBC Abs Auto 0.000 0.0 - 0.012 X10*3/uL [facility] 03/28/2024 7:28 PM EST 03/28/2024 7:46 PM EST us Generic External Data Provider LAB BLOOD ORDERAB LES Final Result Performing Organization Address City/State/[facility] Co de Phone Number [facility] [address] [place] [phone] documented in this encounter Visit Diagnoses Diagnosis Sleep disturbance- Primary Unspecified sleep disturbance Witnessed episode of apnea documented in this encounter Care Teams Parts Sales Counterperson Relationship Specialty Start Date End Date Eneida Alonzo MD [address] [place] [phone] PCP - General Family Medicine 12/08/18 documented as of this encounter
--- OUTSIDE RECORDS SUMMARY | 2025-04-30 12:05 | XMS_ITS | Encounter Summary ---
Author Organization [employer] Address [address] [place] [address] [address] [place] [address] Care Team Providers Care Photoengraving Etcher Apprentice Name Role Phone Eneida Alonzo MD Primary Care Provider [phone] Reason for Visit * Reason Comments Med Refill Encounter Details Date Type Department Care Team (Late st Contact Info) Description 08/13/2022 Refill [facility] MEDICINE [address] [place] [address] Eneida Alonzo MD [address] [place] [address] Social History Tobacco Use Types Packs/Day Years [...] on filedocumented in this encounter Care Teams Photoengraving Etcher Apprentice Relationship Specialty Start Date End Date Eneida Alonzo MD [address] [place] [phone] PCP - General Family Medicine 12/08/18 documented as of this encounter
--- OUTSIDE RECORDS SUMMARY | 2025-04-30 12:05 | XMS_ITS | Encounter Summary ---
Author Organization [employer] Address [address] [facility] 7 [place] [address] Care Team Providers Care Dough Sheeter Name Role Phone Eneida Alonzo MD Primary Care Provider [phone] Reason for Visit * Reason Comments Med Refill Encounter Details Date Type Department Care Team (Late st Contact Info) Description 11/14/2022 Refill [facility] MEDICINE [address] [place], [place] [phone] Eneida Alonzo MD [address] [place] [address] Primary hypertension Social History Tobacco Use Types [...] hypertension documented in this encounter Care Teams Dough Sheeter Relationship Specialty Start Date End Date Eneida Alonzo MD [address] [place], [place] [phone] PCP - General Family Medicine 12/08/18 documented as of this encounter
--- OUTSIDE RECORDS SUMMARY | 2025-04-30 12:05 | XMS_ITS | Encounter Summary ---
Author Organization [employer] Address [address] [facility] 7t [place] [address] Care Team Providers Care Home Paraprofessional Name Role Phone Eneida Alonzo MD Primary Care Provider [phone] Reason for Visit * Reason Onset Date Comments medication did not go through 12/17/2024 Encounter Details Date Type Department Care Team ([facility] st Contact Info) Description 12/17/2024 Telephone [facility] ADULT DENTAL [address] [place] [address] Shai Sol, CHAPARRO [address] [place] [address] medication did not go through Social History [...] it to the pharmacy . I contacted [facility] as it is in the system that it was sent, however [facility] is confirming they did not receive the script. They are able to take a verbal if you can contact them or resend. Please reach out to pharmacy for patient o be able to shrimp picker script Sent to clinical support E Prescribing and front desk associate documented in this encounter Plan of Treatment Not on file documented as of this encounter Visit Diagnoses Not on filedocumented in this encounter Care Teams Home Paraprofessional Relationship Specialty Start Date End Date Eneida Alonzo MD [address] [place] [address] PCP - General Family Medicine 12/08/18 documented as of this encounter
--- OUTSIDE RECORDS SUMMARY | 2025-04-30 12:05 | XMS_ITS | Encounter Summary ---
Author Organization [employer] Address [address] [facility] 7t [place] [address] Care Team Providers Care Director Of Property Management Name Role Phone Eneida Alonzo MD Primary Care Provider [phone] Reason for Visit * Reason Onset Date Comments Med Refill 10/30/2024 Encounter Details Date Type Department Care Team ([facility] st Contact Info) Description 10/30/2024 Refill [facility] MEDICINE [address] [place], [place] [phone] Sarkis Tsang MD [address] [place], [place] [phone] Nonintractable headache, unspecified chronicity pattern, unspecified headache [...] type documented in this encounter Care Teams Director Of Property Management Relationship Specialty Start Date End Date Eneida Alonzo MD [address] [place] [address] PCP - General Family Medicine 12/08/18 documented as of this encounter
--- OUTSIDE RECORDS SUMMARY | 2025-04-30 12:06 | XMS_ITS | Clinical Summary ---
Author Organization [employer] Address [address] [facility] [address] [place] [address] Care Team Providers Care Landscape Architecture Professor Name Role Phone Eneida Alonzo MD Primary Care Provider [phone] Allergies No known active allergies Medications hydrOXYzine [...] 24 hours. 9 tablet 06/09/19 25 Active ibuprofen 600 MG tablet Take [...] month. 15 tablet 3 01/06/20 25 Active lisinopril 20 MG tabletIndicatio ns:Primary hypertension TAKE 1 TABLET BY MOUTH EVERY DAY 90 tablet 1 01/26/20 25 Active hydroCHLOROthia zide 12.5 MG tabletIndicatio ns:Primary hypertension TAKE 1 TABLET BY MOUTH EVERY DAY 90 tablet 1 03/08/20 25 Active ipratropium (Atrovent) 0.03 % nasal sprayIndication s:Acute URI Administer 1 spray into each nostril every 12 (twelve) hours. 30 mL 12 03/11/20 25 2025 Active Salicylic Acid 40 % pads Apply to affected area every 48 hours for 14 days 10 each 04/06/20 25 Active Urea 45 % cream APPLY TO AFFECTED ARE ONCE OR TWICE DAILY 255 g 1 04/15/20 25 Active topiramate (Topamax) 25 MG tabletIndicatio ns:Nonintractab le headache, unspecified chronicity pattern, unspecified headache type TAKE 1 TABLET BY MOUTH EVERYDAY AT BEDTIME 90 tablet 04/23/20 25 Active topiramate (Topamax) 25 MG tabletIndicatio ns:Nonintractab le headache, unspecified chronicity pattern, unspecified headache type TAKE 1 TABLET BY MOUTH EVERY NIGHT AT BEDTIME. 90 tablet 01/26/20 25 2024 Discontinued Urea 45 % cream Apply to affected are once or twice daily 255 g 1 04/06/20 25 2024 Discontinued Urea 45 % cream APPLY TO AFFECTED ARE ONCE OR TWICE DAILY *NC* 255 g 1 04/15/20 25 2024 Discontinued(R eorder (will not trigger [...] (04/11/2025 6:24 AM EST): - presented to [facility] in Mar 2024, severe left sided SULLIVAN and paresthesia, requiring hospitalization. - head CT normal - evaluated by neurologist. Dx migraine with aura. Rx topiramate. Assessment & Plan (01/15/2025 6:49 PM EDT): - presented to [facility] in Mar 2024, severe left sided SULLIVAN and paresthesia, requiring hospitalization. - head CT normal - evaluated by neurologist. Dx migraine with aura. Rx topiramate. Assessment & Plan (06/09/2024 5:28 AM EST): - presented to [facility] in Mar 2024, severe left sided [...] Encounters Date Type Department Care Team Description 04/23/2025 Refill [facility] [address] [facility] [place] [address] Eneida Alonzo MD Nonintractable headache, unspecified chronicity pattern, unspecified headache type 04/15/2025 Refill [facility] MED & PEDS [address] [place], [place] [phone] Eneida Alonzo MD 04/14/2025 Telephone [facility] [address] [place] [address] Eneida Alonzo MD 04/06/2025 3:30 PM EST Office Visit [facility] [address] [place] [address] [place] [address] Eneida Alonzo MD Hypertension, unspecified type (Primary Dx); [...] migraine type; Callus of toe 04/06/2025 Refill [facility] [address] [place] [address] [place] [phone] Eneida Alonzo MD 04/06/2025 Travel 04/05/2025 Telephone [facility] [address] [place] [address] [phone] Eneida Alonzo MD chartprep 03/11/2025 2:00 PM EDT Office Visit [facility] [address] [place], [place] [phone] Sonia Pineda MD Acute URI (Primary Dx); Sore throat 03/11/2025 Travel 03/07/2025 Refill [facility] MED[facility]INE [address] [place], [place] [phone] Eneida Alonzo MD Primary hypertension 02/19/2025 3:00 PM EDT Office Visit [facility] ADULT DENTAL [address] [place] [address] Aminta Smith DDS Dental caries (Primary Dx); Dental abscess 02/19/2025 Telephone [facility] AD[facility] DENT[facility] [address] [place] [address] Aminta Smith DDS PAR unable to run DD of MI from Last 3 Months Immunizations Immunization Administration [...] Procedure Name Priority Date/Time Associated Diagnosis Comments US ABDOMEN COMPLETE WITH ELASTOGRAPHY Routine 04/30/2025 10:41 AM EST Transaminitis POCT RAPID COVID ANTIGEN Routine 03/11/2025 1:42 [...] A1C Routine 01/22/2025 4:15 PM EDT Prediabetes HEPATITIS C AB W/REFL TO HCV RNA, [...] Recently Relevant to Health Maintenance Results * US Abdomen Comp w elastography (04/30/2025 10:41 AM EST) Anatomical Region Laterality Modality Abdomen Ultrasound 04/30/2025 10:4 1 AM EST Narrative 04/30/2025 11:16 AM EST [address] [address] Ultrasound Report Signed Patient: Norbert Cerrato MR#: [id number] : 1980 Acct:[id number] Age/Sex: 44 / M ADM Date: 04/30/25 Loc: HO.US Attending Dr: Eneida Alonzo MD Ordering Physician: Eneida Alonzo MD Date of Service: 04/30/25 Procedure(s): US abdomen comp w elastography Accession Number(s): [id number] cc: Eneida Alonzo MD Reason for Exam: transaminitis EXAMINATION: US ABDOMEN COMPLETE WITH LIVER ELASTOGRAPHY HISTORY: transaminitis TECHNIQUE: Real-time grayscale ultrasound imaging of the abdomen was performed and images were reviewed. COMPARISON: There are no prior studies available for comparison. FINDINGS: Liver: The right lobe of the liver measures 13.3 cm in size. The left lobe of the liver measures 7.8 cm in size. The liver demonstrates normal homogeneous echotexture. No focal mass or intrahepatic biliary ductal dilatation is identified. There is normal hepatopedal flow in the portal vein. Ultrasound elastography of the liver was performed with 10 separate measurements of the liver parenchyma with the patient in the supine position. Measurements were obtained approximately 2 cm below Nick's capsule and perpendicular to the capsule. The median shear wave velocity is 1.25 m/s. The interquartile range/median (IQR/median) is 0.26. Gallbladder and biliary tree: The gallbladder is unremarkable, without evidence of calculi, wall thickening, or pericholecystic fluid. There is no sonographic Chavez sign. The common bile duct is normal in caliber measuring 2 mm in diameter. Kidneys: The right kidney measures 11.1 cm in length. The left kidney measures 11.7 cm in length. There is a 5 mm nonobstructing calculus at the lower pole of the left kidney. No right renal calculi are identified. There is no mass or hydronephrosis. Pancreas: The pancreatic head, neck, and body are unremarkable. The pancreatic tail is obscured by bowel gas. Spleen: The spleen is normal in size and contour, measuring 8.7 cm in length. Abdominal aorta and inferior vena cava: The visualized portions of the abdominal aorta and inferior vena cava are normal in caliber. There is no free fluid in the abdomen. US/US abdomen comp w elastography IMPRESSION: 5 mm nonobstructing left lower pole renal calculus. Otherwise unremarkable abdominal ultrasound. The median shear wave velocity in the liver is 1.25 m/s, corresponding to a median liver stiffness of 4.7 kPa. The IQR/median value is 0.26. This is indicative of a quality data set. Findings are indicative of a normal elastography value with a low likelihood of severe fibrosis or cirrhosis. REFERENCE: Society of Radiologists in Ultrasound Liver Stiffness Thresholds (2020): LIVER STIFFNESS THRESHOLDS: *Shear wave velocity less than 1.3 m/s (Liver Stiffness equal or less than 5 kPa): High probability of being normal. *Shear wave velocity less than 1.7 m/s (Liver Stiffness less than 9 kPa): In the absence of other known clinical signs, rules out compensated advanced chronic liver disease. *Shear wave velocity between 1.7-2.1 m/s (Liver Stiffness 9-13 kPa): Suggestive of compensated advanced chronic liver disease but need further test for confirmation. *Shear wave velocity between 2.1-2.4 m/s (Liver Stiffness 13-17 kPa): Rules in compensated advanced chronic liver disease. *Shear wave velocity greater than 2.4 m/s (Liver Stiffness over 17 kPa): Suggestive of clinically significant portal hypertension. QUALITY OF DATA SET: *IQR/Median value equal or less than 0.30 implies a quality data set. *IQR/Median value over 0.30 implies a poor quality data set. SIGNIFICANT CHANGE FROM PRIOR EXAM: Significant change if liver stiffness measurement is 10% or greater from prior exam. OTHER CONSIDERATIONS: The stage of liver fibrosis may be overestimated in the setting of acute hepatitis, liver inflammation, elevated liver function tests, hepatic vascular congestion, obstructive cholestasis, non-fasting state, and infiltrative diseases such as amyloidosis and lymphoma. In some patients with NAFLD, the liver stiffness thresholds for compensated advanced chronic liver disease may be lower. In causes other than viral hepatitis and NAFLD, liver stiffness thresholds are not well established. Electronically signed by: Sunday Dorantes MD 04/30/2025 11:13 AM EST Dictated By: Sunday Dorantes MD Signed By: <Electronically signed by Sunday Dorantes MD in OV> 04/30/25 1113 DD/ 1041 TD/TT: 04/30/25 1059 Central Supply Technician: Procedure Note Donotuseinterpreter, Image - 04/30/[address] [address] Ultrasound Report Signed Patient: Abdulaziz Cerrato#: [id number] : 1980Acct:[id number] Age/Sex: 44 / MADM Date: 04/30/25 Loc: HO.US Attending Dr: Eneida Alonzo MD Ordering Physician: Eneida Alonzo MD Date of Service: 04/30/25 Procedure(s): US abdomen comp w elastography Accession Number(s): [id number] cc: Eneida Alonzo MD Reason for Exam: transaminitis EXAMINATION: US ABDOMEN COMPLETE WITH LIVER ELASTOGRAPHY HISTORY: transaminitis TECHNIQUE: Real-time grayscale ultrasound imaging of the abdomen was performed and images were reviewed. COMPARISON: There are no prior studies available for comparison. FINDINGS: Liver: The right lobe of the liver measures 13.3 cm in size. The left lobe of the liver measures 7.8 cm in size. The liver demonstrates normal homogeneous echotexture. No focal mass or intrahepatic biliary ductal dilatation is identified. There is normal hepatopedal flow in the portal vein. Ultrasound elastography of the liver was performed with 10 separate measurements of the liver parenchyma with the patient in the supine position. Measurements were obtained approximately 2 cm below Nick's capsule and perpendicular to the capsule. The median shear wave velocity is 1.25 m/s. The interquartile range/median (IQR/median) is 0.26. Gallbladder and biliary tree: The gallbladder is unremarkable, without evidence of calculi, wall thickening, or pericholecystic fluid. There is no sonographic Chavez sign. The common bile duct is normal in caliber measuring 2 mm in diameter. Kidneys: The right kidney measures 11.1 cm in length. The left kidney measures 11.7 cm in length. There is a 5 mm nonobstructing calculus at the lower pole of the left kidney. No right renal calculi are identified. There is no mass or hydronephrosis. Pancreas: The pancreatic head, neck, and body are unremarkable. The pancreatic tail is obscured by bowel gas. Spleen: The spleen is normal in size and contour, measuring 8.7 cm in length. Abdominal aorta and inferior vena cava: The visualized portions of the abdominal aorta and inferior vena cava are normal in caliber. There is no free fluid in the abdomen. US/US abdomen comp w elastography IMPRESSION: 5 mm nonobstructing left lower pole renal calculus. Otherwise unremarkable abdominal ultrasound. The median shear wave velocity in the liver is 1.25 m/s, corresponding to a median liver stiffness of 4.7 kPa. The IQR/median value is 0.26. This is indicative of a quality data set. Findings are indicative of a normal elastography value with a low likelihood of severe fibrosis or cirrhosis. REFERENCE: Society of Radiologists in Ultrasound Liver Stiffness Thresholds (2020): LIVER STIFFNESS THRESHOLDS: *Shear wave velocity less than 1.3 m/s (Liver Stiffness equal or less than 5 kPa): High probability of being normal. *Shear wave velocity less than 1.7 m/s (Liver Stiffness less than 9 kPa): In the absence of other known clinical signs, rules out compensated advanced chronic liver disease. *Shear wave velocity between 1.7-2.1 m/s (Liver Stiffness 9-13 kPa): Suggestive of compensated advanced chronic liver disease but need further test for confirmation. *Shear wave velocity between 2.1-2.4 m/s (Liver Stiffness 13-17 kPa): Rules in compensated advanced chronic liver disease. *Shear wave velocity greater than 2.4 m/s (Liver Stiffness over 17 kPa): Suggestive of clinically significant portal hypertension. QUALITY OF DATA SET: *IQR/Median value equal or less than 0.30 implies a quality data set. *IQR/Median value over 0.30 implies a poor quality data set. SIGNIFICANT CHANGE FROM PRIOR EXAM: Significant change if liver stiffness measurement is 10% or greater from prior exam. OTHER CONSIDERATIONS: The stage of liver fibrosis may be overestimated in the setting of acute hepatitis, liver inflammation, elevated liver function tests, hepatic vascular congestion, obstructive cholestasis, non-fasting state, and infiltrative diseases such as amyloidosis and lymphoma. In some patients with NAFLD, the liver stiffness thresholds for compensated advanced chronic liver disease may be lower. In causes other than viral hepatitis and NAFLD, liver stiffness thresholds are not well established. Electronically signed by: Sunday Dorantes MD 04/30/2025 11:13 AM EST Dictated By: Sunday Dorantes MD Signed By: <Electronically signed by Sunday Dorantes MD in OV> 04/30/25 1113 DD/ 1041 TD/TT: 04/30/25 1059 Central Supply Technician: Eneida Alonzo MD IMG US PROCEDURES Final Result * POCT Rapid Covid-19 BinaxNOW (03/11/2025 1:42 PM EDT) Rapid COVID Ag Negative QC Media Lot # [id number] Lot# Expiration Date [id number] Swab 03/11/2025 1:42 PM EDT Sonia Pineda MD POINT OF CARE TEST ENTER/E DIT ORDERABLES Final Result * POCT Rapid Influenza B ROMERO ID NOW (03/11/2025 1:41 PM EDT) [facility] Influenza B Negative Negative, Indeterminate [facility] QC Media Lot # [id number] [facility] Lot# Expiration Date [facility] Swab 03/11/2025 1:41 PM EDT Sonia Pineda MD POINT OF CARE TEST ENTER/E DIT ORDERABLES Final Result Performing Organization Address [facility]/ZIP Co de Phone Number [facility] [address] [place] [phone] * POCT Rapid Influenza A ROMERO ID NOW (03/11/2025 1:41 PM EDT) [facility] Influenza A Negative Negative, Indeterminate [facility] QC Media Lot # [id number] [facility] Lot# Expiration Date [facility] Swab 03/11/2025 1:41 PM EDT Sonia Pineda MD POINT OF CARE TEST ENTER/E DIT ORDERABLES Final Result Performing Organization Address City/[facility]/ZIP Co de Phone Number [facility] [address] [place] [phone] * POCT Rapid Strep A ROMERO ID NOW (03/11/2025 1:32 PM EDT) Rapid Strep A Screen Negative Negative, None Detected QC Media Lot # [id number] Lot# Expiration Date Swab 03/11/2025 1:32 PM EDT Sonia Pineda MD POINT OF CARE TEST ENTER/E DIT ORDERABLES Final Result * (ABNORMAL) Hemoglobin A1c (01/22/2025 4:15 PM EDT) Pathologist [facility] Hemoglobin A1c 6.1(H) <6.0 % [facility] Comment:Hemoglobin A1C Refer ence Range Adults: 4.8 - 6.0 % Non diabetic: < 6.0 % Goal: < 7.0 %Additional Action Suggested: > 8.0 %Note: Hemoglobin A1c results are invalid for patients with abnormal amounts of HbF. Blood transfusions may impact the HbA1c concentration in the patient sample. Estimated Average Glucose 128 mg/dL [facility] Comment:eAG = Estimated ave rage glucose which is %A1C expressed asaverage glucose, using the formula of the B0Y-TpsotbaYfpxbub Glucose study (ADAG), Diabetes Care, Vol.31,#8,Dec. 2007 Blood Venous blood specimen / Unknown 01/22/2025 4:15 PM EDT 01/22/2025 6:09 PM EDT Eneida Alonzo MD LAB BLOOD ORDERABLES Final Resul t [facility] [address] [place] [phone] * (ABNORMAL) Lipid Panel with Reflex to Direct LDL (2024 9:41 AM EDT) Pathologist [facility] Triglycerides 93 <150 mg/dL [facility] Comment:Desirable Triglyceri de: less than 150 mg/dLBorderline High Triglyceride 150-199 mg/dLHigh Triglyceride: 200-499 mg/dLVery High Triglyceride: greater than or equal to 5OO mg/dL Cholesterol 234(H) <200 mg/dL [facility] Comment:Desirable Cholestero l: less than 200 mg/dLBorderline High Cholesterol: 200-239 mg/dLHigh Cholesterol: greater than 239 mg/dL LDL Cholesterol Calculated 168(H) <100 mg/dL [facility] Comment:Desirable LDL: less than 100 mg/dLNear Optimal/Above Optimal LDL: 110- 129 mg/dLBorderline High LDL: 130-159 mg/dLHigh LDL: 160-189 mg/dLVery High LDL: greater than or equal to 190 mg/dL HDL Cholesterol 48 >40 mg/dL [facility] Comment:Desirable HDL: great er than 40 mg/dL Note: This HDL assay may give artificially low results in patients with liver disease. Blood 2024 9:41 AM EDT 2024 11:17 AM EDT Eneida Alonzo MD LAB BLOOD ORDERABLES Final Resul t Performing Organization Address [facility] Co de Phone Number [facility] [address] [place] [phone] * Hepatitis C Antibody with Reflex to HCV, RNA, Quantitative, Real-Time PCR (2024 9:41 AM EDT) Hepatitis C Antibody Nonreactive Nonreactive [facility] Comment:Antibodies to HCV no t detected; does not exclude early acuteHCV infection. Blood Venous blood specimen / Unknown 2024 9:41 AM EDT 2024 11:17 AM EDT Eneida Alonzo MD LAB BLOOD ORDERABLES Final Resul t Performing Organization Address [facility] Co de Phone Number [facility] [address] [place] [phone] * HIV-1/2 Antigen and Antibodies, Fourth Generation, with Reflexes (2024 9:41 AM EDT) HIV AB/AG Nonreactive Nonreactive [facility] Comment:HIV-1 p24 Ag and/or HIV-1/HIV-2 Ab not detected.A test result that is nonreactive does not exclude thepossibility of exposure to or infection with HIV-1 and/orHIV-2. Nonreactive results in this assay for individualswith prior exposure to HIV-1 and/or HIV-2 may be due toantigen and antibody levels that are below the limit ofdetection of this assay.The [facility] HIV Ag/Ab Combo assay result andsupplemental assay results should be interpreted inconjunction with the patient's clinical presentation,history and other laboratory results. If the results areinconsistent with clinical evidence, additional testing issuggested to confirm the result. Blood Venous blood specimen / Unknown 2024 9:41 AM EDT 2024 11:17 AM EDT us Eneida Alonzo MD LAB BLOOD ORDERABLES Final Resul t [facility] [address] [place] [phone] from Last 3 Months or Most Recently Relevant to Health Maintenance Insurance [facility] D[facility] - HSN PARTIAL (MEDICAID) Care Teams Landscape Architecture Professor Relationship Specialty Start Date End Date Eneida Alonzo MD [address] [place] [phone] PCP - General Family Medicine 12/08/18
== END 2025-04-30 10:29 | disposition home or self-care (01) ==
LOC: HO.US 10:28
PROVIDERS: PCP Family Medicine; Visit Provider Family Medicine
DX: R74.01 Elevation of levels of liver transaminase levels (principal)
CPT/HCPCS: 76700; 76981

== ENCOUNTER → 2025-04-30 10:32 | Outpatient (BNV) | payer OTHER, SELFPAY | PROVIDERS: PCP Family Medicine; Visit Provider Radiology Diagnostic Radiology | DX: N20.0 Calculus of kidney (principal) | CPT/HCPCS: 76700 ==